=== PATIENT | male | born 1940 | race Caucasian/White ===

== ENCOUNTER 2023-05-12 09:48 | Outpatient (REF) | payer MEDICARE, SELFPAY | END 2023-05-12 09:49 | disposition home or self-care (01) | LOC: HO.HKASLDS 09:48 | PROVIDERS: Visit Provider Internal Medicine Nephrology | DX: Z13.89 Encounter for screening for other disorder (principal) ==

== ENCOUNTER 2023-05-14 14:38 | Outpatient (REF) | payer MEDICARE, SELFPAY ==
[2023-05-14 16:36] LABS: Anion Gap 15 (12-20); Blood Urea Nitrogen 40 mg/dL (9-16); Calcium 9.6 mg/dL (8.4-10.2); Carbon Dioxide 22 mmol/L (22-29); Chloride 107 mmol/L (96-108); Estimated Glomerular Filt Rate 37; Potassium 4.6 mmol/L (3.3-5.1); Sodium 139 mmol/L (135-145)
== END 2023-05-14 14:39 | disposition home or self-care (01) ==
LOC: HO.HKASLDS 14:38
PROVIDERS: Visit Provider Internal Medicine Nephrology
DX: I12.9 Hypertensive chronic kidney disease with stage 1 through stage 4 chronic kidney disease, or unspecified chronic kidney disease (principal); N18.4 Chronic kidney disease, stage 4 (severe)
CPT/HCPCS: 36415; 80051; 82310; 82565; 84520

== ENCOUNTER 2023-05-18 10:45 | Outpatient (AMB) | payer MEDICARE, SELFPAY ==
--- NOTE | 2023-05-18 10:40 | HO.NEPHOV_ITS ---
HPI HPI Comments History of Present Illness Details I had the pleasure seeing Mr. Marcano in follow-up of his chronic kidney disease and hypertension. He follows up with Urology annually due to his history of right renal cell carcinoma and status post nephrectomy in 2014. He also has prostate cancer and is following with Oncologist. His serum creatinine had been stable around 1.8 to 2. He denies any chest pain, shortness of breath, nausea vomiting, diarrhea, pedal edema or any urinary symptoms. He has no orthostasis. He is compliant with adequate fluid intake and avoids nonsteroidal anti-inflammatory medications. He had CVA in December. His swallow is better. He has lost a lot of weight following CVA. [facility] Medical History (Updated 05/18/23 @ 10:43 by Rivera Murray MD) Prostate cancer History of renal cell cancer Acquired solitary kidney Essential (primary) hypertension CKD (chronic kidney disease) stage 3, GFR 30-59 ml/min Surgical History (Updated 05/18/23 @ 10:55 by Shae Douglas MA) History of nephrectomy Social History (Updated 05/18/23 @ 10:56 by Shae Douglas MA) Alcohol intake: never Patient Tobacco Use Status: Never used Tobacco Use of substances other than those prescribed or required for medical reasons: No Vital Signs 05/18/23 10:52 Height 5 ft 11 in Weight 212 lb BMI 29.6 BP 122/62 Blood Pressure Location Rt brachial Position Sitting Pulse 91 Pulse Source Pulse Oximeter Pulse Oximetry (%) 97 Oxygen Delivery Method Room Air Physical Exam Vital Signs: Last Vital Signs Pulse 91 05/18/23 10:52 BP 122/62 05/18/23 10:52 Pulse Ox 97 05/18/23 10:52 Oxygen Delivery Method Room Air 05/18/23 10:52 BMI result Body Mass Index 29.6 Const General: comfortable and no acute distress Orientation/consciousness: patient oriented x3 HEENT Head: Yes normocephalic Mouth: Normal oral and palatal mucosa present Eyes EOM: EOMs intact bilaterally Neck Neck: Yes supple Resp Auscultation: clear to auscultation bilaterally Cardio Jugular venous distension: no JVD Rate: regular rate GI Palpation (GI): Soft to palpation Auscultation: normal bowel sounds General: Yes no CVA tenderness Back/Spine/Pelvis Back: no CVA tenderness Skin General skin exam: no rashes or lesions noted Neuro General: patient oriented x3 and moves all extremities Extrem General: Yes no pedal edema Assessment & Plan Assessment & Plan (1) CKD (chronic kidney disease) stage 3, GFR 30-59 ml/min: Code(s): N18.30 - Chronic kidney disease, stage 3 unspecified Qualifiers: Chronic kidney disease stage 3 subtype: stage 3a (GFR 45-59) Qualified Code(s): N18.31 - Chronic kidney disease, stage 3a (2) Essential (primary) hypertension: Code(s): I10 - Essential (primary) hypertension (3) Acquired solitary kidney: Code(s): Z90.5 - Acquired absence of kidney (4) Prostate cancer: Code(s): C61 - Malignant neoplasm of prostate (5) History of renal cell cancer: Code(s): Z85.528 - Personal history of other malignant neoplasm of kidney Plan Franky had stable renal function for long time. He follows up with Urology very closely. He should continue his current dose of allopurinol. He has not had any gout exacerbations. He should avoid nonsteroidal inflammatory medications and cut back on sodium in the diet. His blood pressure has been at goal at home. I encouraged to continue to monitoring blood pressure at home. He needs to lose some more weight. He should maintain good hydration and avoid nonsteroidal anti-inflammatories. I did not make any medication changes today. Follow-up blood work ordered. Follow-up appointment given. Answered all questions. Orders: Orders Creatinine Today C61 - Malignant neoplasm of prostate, I10 - Essential (primary) hypertension, N18.30 - Chronic kidney disease, stage 3 unspecified, Z85.528 - Personal history of other malignant neoplasm of kidney, Z90.5 - Acquired absence of kidney Blood Urea Nitrogen Today C61 - Malignant neoplasm of prostate, I10 - Essential (primary) hypertension, N18.30 - Chronic kidney disease, stage 3 unspecified, Z85.528 - Personal history of other malignant neoplasm of kidney, Z90.5 - Acquired absence of kidney Electrolytes Today C61 - Malignant neoplasm of prostate, I10 - Essential (primary) hypertension, N18.30 - Chronic kidney disease, stage 3 unspecified, Z85.528 - Personal history of other malignant neoplasm of kidney, Z90.5 - Acquired absence of kidney Calcium Today C61 - Malignant neoplasm of prostate, I10 - Essential (primary) hypertension, N18.30 - Chronic kidney disease, stage 3 unspecified, Z85.528 - Personal history of other malignant neoplasm of kidney, Z90.5 - Acquired absence of kidney Coding Level of Care Code Est Pt Level 3 (98004) Diagnoses Stage 3a chronic kidney disease N18.31 Chronic kidney disease stage 3 subtype: stage 3a (GFR 45-59) Essential (primary) hypertension I10 Acquired solitary kidney Z90.5 Prostate cancer C61 History of renal cell cancer Z85.528 Results Reviewed Nephrology Results: Sodium 139 mmol/L (135-145) 05/14/23 Potassium 4.6 mmol/L (3.3-5.1) 05/14/23 Chloride 107 mmol/L (96-108) 05/14/23 Carbon Dioxide 22 mmol/L (22-29) 05/14/23 BUN 40 mg/dL (9-16) H 05/14/23 Creatinine 1.75 mg/dL (0.5-1.4) H 05/14/23 Calcium 9.6 mg/dL (8.4-10.2) 05/14/23
[2023-05-18 10:52] VITALS: BP 122/62; PULSE 91; O2SAT 97; BMI 29.6
== END 2023-05-18 11:10 | disposition home or self-care (01) ==
PROVIDERS: PCP Physician Assistant; Visit Provider Internal Medicine Nephrology
DX: N18.31 Chronic kidney disease, stage 3a (principal); I10 Essential (primary) hypertension; Z90.5 Acquired absence of kidney; C61 Malignant neoplasm of prostate; Z85.528 Personal history of other malignant neoplasm of kidney
CPT/HCPCS: 99213

== ENCOUNTER → 2023-05-18 10:45 | Outpatient (BNVA) | payer MEDICARE, SELFPAY | PROVIDERS: PCP Physician Assistant; Visit Provider Internal Medicine Nephrology | DX: I12.9 Hypertensive chronic kidney disease with stage 1 through stage 4 chronic kidney disease, or unspecified chronic kidney disease (principal); N18.31 Chronic kidney disease, stage 3a; C61 Malignant neoplasm of prostate; Z90.5 Acquired absence of kidney; Z85.528 Personal history of other malignant neoplasm of kidney | CPT/HCPCS: 99212 ==

== ENCOUNTER → 2023-06-15 09:37 | Outpatient (REF) | payer MEDICARE, SELFPAY ==
--- NOTE | 2023-06-15 09:40 | HM_ITS ---
Conclusion: 1. Patient was monitored for total period of 7 days 2. Baseline was normal sinus rhythm with average heart of 63 beats per minute 3. Five pauses of greater than 2.5 seconds noted, all of them happening during sleep hours 4. Frequent PACs noted with total burden of 5.5% 5. No patient reported events MTDD
== END ==
LOC: HO.CARD 09:37
PROVIDERS: PCP Internal Medicine; Visit Provider Psychiatry & Neurology Neurology
DX: I63.9 Cerebral infarction, unspecified (principal); I49.1 Atrial premature depolarization
CPT/HCPCS: 93242

== ENCOUNTER → 2023-06-15 09:40 | Outpatient (BNV) | payer MEDICARE, SELFPAY | PROVIDERS: PCP Internal Medicine; Visit Provider Internal Medicine Cardiovascular Disease | DX: I49.1 Atrial premature depolarization (principal) | CPT/HCPCS: 93244 ==

== ENCOUNTER 2023-09-23 10:07 | Outpatient (REF) | payer MEDICARE, SELFPAY ==
[2023-09-23 17:25] LABS: Creatinine Urine 177.98 mg/dL; Protein/Creatinine Ratio, Ur 0.31 (<0.2); Total Protein Urine Random 55 mg/dL (<12)
[2023-09-23 17:41] LABS: Anion Gap 9 (12-20); Blood Urea Nitrogen 34 mg/dL (9-16); Calcium 9.3 mg/dL (8.4-10.2); Carbon Dioxide 27 mmol/L (22-29); Chloride 108 mmol/L (96-108); Estimated Glomerular Filt Rate 38; Potassium 4.2 mmol/L (3.3-5.1); Sodium 140 mmol/L (135-145)
== END 2023-09-23 10:08 | disposition home or self-care (01) ==
LOC: HO.HKASLDS 10:07
PROVIDERS: Visit Provider Internal Medicine Nephrology
DX: I12.9 Hypertensive chronic kidney disease with stage 1 through stage 4 chronic kidney disease, or unspecified chronic kidney disease (principal); N18.30 Chronic kidney disease, stage 3 unspecified; Z85.528 Personal history of other malignant neoplasm of kidney; C61 Malignant neoplasm of prostate; Z90.5 Acquired absence of kidney
CPT/HCPCS: 36415; 80051; 82310; 82565; 82570; 84156; 84520

== ENCOUNTER 2023-09-29 10:37 | Outpatient (AMB) | payer MEDICARE, SELFPAY ==
--- NOTE | 2023-09-29 10:59 | HO.NEPHOV ---
Vital Signs 09/29/23 11:00 Height 5 ft 11 in Weight 213 lb BMI 29.7 BP 112/60 Blood Pressure Location Lt brachial Position Sitting Pulse 75 Pulse Source Pulse Oximeter Pulse Oximetry (%) 96 Oxygen Delivery Method Room Air Intake Visit Reasons: 4M follow up/ Confirmed Obiee Lead Developer Required: No Accompanied by: Self / Same As Patient Allergies No Known Allergies Allergy (Verified 09/29/23 11:02) HPI Comments Details: I had the pleasure seeing Mr. Marcano in follow-up of his chronic kidney disease and hypertension. He follows up with Urology annually due to his history of right renal cell carcinoma and status post nephrectomy in 2014. He also has prostate cancer and is following with Oncologist. His serum creatinine had been stable around 1.8 to 2. He denies any chest pain, shortness of breath, nausea vomiting, diarrhea, pedal edema or any urinary symptoms. He has no orthostasis. He is compliant with adequate fluid intake and avoids nonsteroidal anti-inflammatory medications. He had CVA in December 2022. He has lost a lot of weight following CVA but stable now. [facility] Medical History (Updated 09/29/23 @ 11:18 by Rivera Murray MD) Prostate cancer History of renal cell cancer Acquired solitary kidney Essential (primary) hypertension CKD (chronic kidney disease) stage 3, GFR 30-59 ml/min Surgical History History of nephrectomy Social History Alcohol intake: never Patient Tobacco Use Status: Never used Tobacco Physical Exam Vital Signs: Last Vital Signs Pulse 75 09/29/23 11:00 BP 112/60 09/29/23 11:00 Pulse Ox 96 09/29/23 11:00 Oxygen Delivery Method Room Air 09/29/23 11:00 BMI result Body Mass Index 29.7 Const General: comfortable and no acute distress Orientation/consciousness: patient oriented x3 HEENT Head: Yes normocephalic Mouth: Normal oral and palatal mucosa present Eyes EOM: EOMs intact bilaterally Neck Neck: Yes supple Resp Auscultation: clear to auscultation bilaterally Cardio Jugular venous distension: no JVD Rate: regular rate GI Palpation (GI): Soft to palpation Auscultation: normal bowel sounds General: Yes no CVA tenderness Back/Spine/Pelvis Back: no CVA tenderness Skin General skin exam: no rashes or lesions noted Neuro General: patient oriented x3 and moves all extremities Extrem General: Yes no pedal edema Results Reviewed Nephrology Results: Sodium 140 mmol/L (135-145) 24/24 Potassium 4.2 mmol/L (3.3-5.1) 2424 Chloride 108 mmol/L (96-108) 09/22/24 Carbon Dioxide 27 mmol/L (22-29) 24 BUN 34 mg/dL (9-16) H 24 Creatinine 1.74 mg/dL (0.5-1.4) H 24 Calcium 9.3 mg/dL (8.4-10.2) 24 Urine Creatinine 177.98 mg/dL 24 Protein/Creatinin Ratio 0.31 (<0.2) H 24 Assessment & Plan Assessment & Plan (1) History of renal cell cancer: Code(s): Z85.528 - Personal history of other malignant neoplasm of kidney Category: Medical (2) Prostate cancer: Code(s): C61 - Malignant neoplasm of prostate Category: Medical (3) Essential (primary) hypertension: Code(s): I10 - Essential (primary) hypertension Category: Medical (4) Acquired solitary kidney: Code(s): Z90.5 - Acquired absence of kidney Category: Medical (5) CKD (chronic kidney disease) stage 3, GFR 30-59 ml/min: Code(s): N18.30 - Chronic kidney disease, stage 3 unspecified Category: Medical Qualifiers: Chronic kidney disease stage 3 subtype: stage 3a (GFR 45-59) Qualified Code(s): N18.31 - Chronic kidney disease, stage 3a (6) Hyperuricemia: Code(s): E79.0 - Hyperuricemia without signs of inflammatory arthritis and tophaceous disease Category: Medical Plan . Franky had stable renal function for long time. He follows up with Urology very closely. He should continue his current dose of allopurinol. He has not had any gout exacerbations. He should avoid nonsteroidal inflammatory medications and cut back on sodium in the diet. His blood pressure has been at goal at home. I encouraged to continue to monitoring blood pressure at home. He needs to lose some more weight. He should maintain good hydration and avoid nonsteroidal anti-inflammatories. I did not make any medication changes today. Follow-up blood work ordered. Follow-up appointment given. Answered all questions. Orders: Orders Blood Urea Nitrogen Today C61 - Malignant neoplasm of prostate, E79.0 - Hyperuricemia without signs of inflammatory arthritis and tophaceous disease, I10 - Essential (primary) hypertension, N18.31 - Chronic kidney disease, stage 3a, Z85.528 - Personal history of other malignant neoplasm of kidney, Z90.5 - Acquired absence of kidney Uric Acid Today C61 - Malignant neoplasm of prostate, E79.0 - Hyperuricemia without signs of inflammatory arthritis and tophaceous disease, I10 - Essential (primary) hypertension, N18.31 - Chronic kidney disease, stage 3a, Z85.528 - Personal history of other malignant neoplasm of kidney, Z90.5 - Acquired absence of kidney Electrolytes Today C61 - Malignant neoplasm of prostate, E79.0 - Hyperuricemia without signs of inflammatory arthritis and tophaceous disease, I10 - Essential (primary) hypertension, N18.31 - Chronic kidney disease, stage 3a, Z85.528 - Personal history of other malignant neoplasm of kidney, Z90.5 - Acquired absence of kidney Calcium Today C61 - Malignant neoplasm of prostate, E79.0 - Hyperuricemia without signs of inflammatory arthritis and tophaceous disease, I10 - Essential (primary) hypertension, N18.31 - Chronic kidney disease, stage 3a, Z85.528 - Personal history of other malignant neoplasm of kidney, Z90.5 - Acquired absence of kidney Creatinine Today C61 - Malignant neoplasm of prostate, E79.0 - Hyperuricemia without signs of inflammatory arthritis and tophaceous disease, I10 - Essential (primary) hypertension, N18.31 - Chronic kidney disease, stage 3a, Z85.528 - Personal history of other malignant neoplasm of kidney, Z90.5 - Acquired absence of kidney Coding Level of Care Code Est Pt Level 4 (15254) Diagnoses History of renal cell cancer Z85.528 Prostate cancer C61 Essential (primary) hypertension I10 Acquired solitary kidney Z90.5 Stage 3a chronic kidney disease N18.31 Chronic kidney disease stage 3 subtype: stage 3a (GFR 45-59) Hyperuricemia E79.0
[2023-09-29 11:00] VITALS: BP 112/60; PULSE 75; O2SAT 96; BMI 29.7
== END 2023-09-29 11:28 | disposition home or self-care (01) ==
PROVIDERS: PCP Internal Medicine; Visit Provider Internal Medicine Nephrology
DX: Z85.528 Personal history of other malignant neoplasm of kidney (principal); C61 Malignant neoplasm of prostate; I10 Essential (primary) hypertension; Z90.5 Acquired absence of kidney; N18.31 Chronic kidney disease, stage 3a; E79.0 Hyperuricemia without signs of inflammatory arthritis and tophaceous disease
CPT/HCPCS: 99214

== ENCOUNTER → 2023-09-29 10:37 | Outpatient (BNVA) | payer MEDICARE, SELFPAY | PROVIDERS: PCP Internal Medicine; Visit Provider Internal Medicine Nephrology | DX: I12.9 Hypertensive chronic kidney disease with stage 1 through stage 4 chronic kidney disease, or unspecified chronic kidney disease (principal); N18.31 Chronic kidney disease, stage 3a; C61 Malignant neoplasm of prostate; E79.0 Hyperuricemia without signs of inflammatory arthritis and tophaceous disease; Z90.5 Acquired absence of kidney; Z85.528 Personal history of other malignant neoplasm of kidney | CPT/HCPCS: 99212 ==

== ENCOUNTER 2024-01-26 13:39 | Outpatient (REF) | payer MEDICARE, SELFPAY ==
[2024-01-26 18:20] LABS: Anion Gap 16 (12-20); Blood Urea Nitrogen 29 mg/dL (9-16); Calcium 9.8 mg/dL (8.4-10.2); Carbon Dioxide 22 mmol/L (22-29); Chloride 107 mmol/L (96-108); Estimated Glomerular Filt Rate 38; Sodium 140 mmol/L (135-145); Uric Acid 4.8 mg/dL (3.4-7.0)
== END 2024-01-26 13:40 | disposition home or self-care (01) ==
LOC: HO.HKASLDS 13:39
PROVIDERS: Visit Provider Internal Medicine Nephrology
DX: E79.0 Hyperuricemia without signs of inflammatory arthritis and tophaceous disease (principal); C61 Malignant neoplasm of prostate; I10 Essential (primary) hypertension; Z90.5 Acquired absence of kidney; N18.31 Chronic kidney disease, stage 3a; Z85.528 Personal history of other malignant neoplasm of kidney
CPT/HCPCS: 36415; 80051; 82310; 82565; 84520; 84550

== ENCOUNTER 2024-02-04 11:50 | Outpatient (AMB) | payer MEDICARE, SELFPAY ==
[2024-02-04 12:12] VITALS: BP 80/44; PULSE 73; O2SAT 98; BMI 27.2
--- NOTE | 2024-02-04 12:12 | HO.NEPHOV ---
Vital Signs 02/04/24 12:12 Height 5 ft 11 in Weight 195 lb 2 oz BMI 27.2 BP 80/44 L Blood Pressure Location Lt brachial Position Sitting Pulse 73 Pulse Source Pulse Oximeter Pulse Oximetry (%) 98 Oxygen Delivery Method Room Air Intake Visit Reasons: 4M follow up/ Confirmed Merchandise Complaint Adjuster Required: No Accompanied by: Self / Same As Patient Allergies No Known Allergies Allergy (Verified 02/04/24 12:14) HPI Comments Details: I had the pleasure seeing Mr. Marcano in follow-up of his chronic kidney disease and hypertension. He follows up with Urology annually due to his history of right renal cell carcinoma and status post nephrectomy in 2014. He also has prostate cancer and is following with Oncologist. His serum creatinine had been stable around 1.8 to 2. He denies any chest pain, shortness of breath, nausea vomiting, diarrhea, pedal edema or any urinary symptoms. He has no orthostasis. He is compliant with adequate fluid intake and avoids nonsteroidal anti-inflammatory medications. He had CVA in December 2022. He has lost a lot of weight following CVA but stable now. He had COVID and AFib recently. He is on anticoagulation. His BP has been low normal and has been having intermittent orthostatic symptoms. [facility] Medical History (Updated 09/29/23 @ 11:18 by Rivera Murray MD) Prostate cancer History of renal cell cancer Acquired solitary kidney Essential (primary) hypertension CKD (chronic kidney disease) stage 3, GFR 30-59 ml/min Surgical History History of nephrectomy Social History Alcohol intake: never Patient Tobacco Use Status: Never used Tobacco Review of Systems Const All systems reviewed & are unremarkable except as noted in HPI and below Physical Exam Vital Signs: Last Vital Signs Pulse 73 02/04/24 12:12 BP 80/44 L 02/04/24 12:12 Pulse Ox 98 02/04/24 12:12 Oxygen Delivery Method Room Air 02/04/24 12:12 BMI result Body Mass Index 27.2 Const General: comfortable and no acute distress Orientation/consciousness: patient oriented x3 HEENT Head: Yes normocephalic Mouth: Normal oral and palatal mucosa present Eyes EOM: EOMs intact bilaterally Neck Neck: Yes supple Resp Auscultation: clear to auscultation bilaterally Cardio Jugular venous distension: no JVD Rate: regular rate GI Palpation (GI): Soft to palpation Auscultation: normal bowel sounds General: Yes no CVA tenderness Back/Spine/Pelvis Back: no CVA tenderness Skin General skin exam: no rashes or lesions noted Neuro General: patient oriented x3 and moves all extremities Extrem General: Yes no pedal edema Results Reviewed Nephrology Results: Sodium 140 mmol/L (135-145) 01/26/24 Potassium 5.0 mmol/L (3.3-5.1) 01/26/24 Chloride 107 mmol/L (96-108) 01/26/24 Carbon Dioxide 22 mmol/L (22-29) 01/26/24 BUN 29 mg/dL (9-16) H 01/26/24 Creatinine 1.72 mg/dL (0.5-1.4) H 01/26/24 Calcium 9.8 mg/dL (8.4-10.2) 01/26/24 Urine Creatinine 177.98 mg/dL 09/23/23 Protein/Creatinin Ratio 0.31 (<0.2) H 09/23/23 Assessment & Plan Assessment & Plan (1) CKD (chronic kidney disease) stage 3, GFR 30-59 ml/min: Code(s): N18.30 - Chronic kidney disease, stage 3 unspecified Category: Medical Qualifiers: Chronic kidney disease stage 3 subtype: stage 3a (GFR 45-59) Qualified Code(s): N18.31 - Chronic kidney disease, stage 3a (2) Acquired solitary kidney: Code(s): Z90.5 - Acquired absence of kidney Category: Medical (3) Essential (primary) hypertension: Code(s): I10 - Essential (primary) hypertension Category: Medical Plan Franky had stable renal function for long time. He follows up with Urology very closely. He should continue his current dose of allopurinol. He has not had any gout exacerbations. He should avoid nonsteroidal inflammatory medications and cut back on sodium in the diet. His blood pressure has been at goal at home. I encouraged to continue to monitoring blood pressure at home. He needs to lose some more weight. He should maintain good hydration and avoid nonsteroidal anti-inflammatories. I reduced his Amlodipine to 5 mg daily given orthostatic symptoms. I did not make any other medication changes today. Follow-up blood work ordered. Follow-up appointment given. Answered all questions Coding Level of Care Code Est Pt Level 4 (19022) Diagnoses Stage 3a chronic kidney disease N18.31 Chronic kidney disease stage 3 subtype: stage 3a (GFR 45-59) Acquired solitary kidney Z90.5 Essential (primary) hypertension I10
== END 2024-02-04 12:32 | disposition home or self-care (01) ==
PROVIDERS: PCP Internal Medicine; Visit Provider Internal Medicine Nephrology
DX: N18.31 Chronic kidney disease, stage 3a (principal); Z90.5 Acquired absence of kidney; I10 Essential (primary) hypertension
CPT/HCPCS: 99214

== ENCOUNTER → 2024-02-04 11:50 | Outpatient (BNVA) | payer MEDICARE, SELFPAY | PROVIDERS: PCP Internal Medicine; Visit Provider Internal Medicine Nephrology | DX: I12.9 Hypertensive chronic kidney disease with stage 1 through stage 4 chronic kidney disease, or unspecified chronic kidney disease (principal); N18.31 Chronic kidney disease, stage 3a; C61 Malignant neoplasm of prostate; I48.91 Unspecified atrial fibrillation; Z86.73 Personal history of transient ischemic attack (TIA), and cerebral infarction without residual deficits; Z79.01 Long term (current) use of anticoagulants; Z90.5 Acquired absence of kidney; Z85.528 Personal history of other malignant neoplasm of kidney | CPT/HCPCS: 99212 ==

== ENCOUNTER 2024-04-07 11:20 | Outpatient (AMB) | payer MEDICARE, SELFPAY ==
--- NOTE | 2024-04-07 11:40 | HO.NEPHOV ---
Vital Signs 04/07/24 11:42 Height 5 ft 11 in Weight 202 lb 8 oz BMI 28.2 BP 120/60 Blood Pressure Location Lt brachial Position Sitting Pulse 65 Pulse Source Pulse Oximeter Pulse Oximetry (%) 98 Oxygen Delivery Method Room Air Intake Visit Reasons: 2 mon follow up-Conf Accompanied by: Self / Same As Patient Allergies No Known Allergies Allergy (Verified 04/07/24 11:41) HPI Comments Details: Mr. Marcano was seen in follow-up of his chronic kidney disease and hypertension. He follows up with Urology annually due to his history of right renal cell carcinoma and status post nephrectomy in 2014. He also has prostate cancer and is following with Oncologist. His serum creatinine had been stable around 1.8 to 2. He denies any chest pain, shortness of breath, nausea vomiting, diarrhea, pedal edema or any urinary symptoms. He has no orthostasis. He is compliant with adequate fluid intake and avoids nonsteroidal anti-inflammatory medications. 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 His BP is at goal [facility] Medical History (Updated 09/29/23 @ 11:18 by Rivera Murray MD) Prostate cancer History of renal cell cancer Acquired solitary kidney Essential (primary) hypertension CKD (chronic kidney disease) stage 3, GFR 30-59 ml/min Surgical History History of nephrectomy Social History Alcohol intake: never Patient Tobacco Use Status: Never used Tobacco Review of Systems Const All systems reviewed & are unremarkable except as noted in HPI and below Physical Exam Vital Signs: Last Vital Signs Pulse 65 04/07/24 11:42 BP 120/60 04/07/24 11:42 Pulse Ox 98 04/07/24 11:42 Oxygen Delivery Method Room Air 04/07/24 11:42 BMI result Body Mass Index 28.2 Const General: comfortable and no acute distress Orientation/consciousness: patient oriented x3 HEENT Head: Yes normocephalic Mouth: Normal oral and palatal mucosa present Eyes EOM: EOMs intact bilaterally Neck Neck: Yes supple Resp Auscultation: clear to auscultation bilaterally Cardio Jugular venous distension: no JVD Rate: regular rate GI Palpation (GI): Soft to palpation Auscultation: normal bowel sounds General: Yes no CVA tenderness Back/Spine/Pelvis Back: no CVA tenderness Skin General skin exam: no rashes or lesions noted Neuro General: patient oriented x3 and moves all extremities Extrem General: Yes no pedal edema Results Reviewed Nephrology Results: Sodium 140 mmol/L (135-145) 01/26/24 Potassium 5.0 mmol/L (3.3-5.1) 01/26/24 Chloride 107 mmol/L (96-108) 01/26/24 Carbon Dioxide 22 mmol/L (22-29) 01/26/24 BUN 29 mg/dL (9-16) H 01/26/24 Creatinine 1.72 mg/dL (0.5-1.4) H 01/26/24 Calcium 9.8 mg/dL (8.4-10.2) 01/26/24 Urine Creatinine 177.98 mg/dL 09/23/23 Protein/Creatinin Ratio 0.31 (<0.2) H 09/23/23 Assessment & Plan Assessment & Plan (1) Hyperuricemia: Code(s): E79.0 - Hyperuricemia without signs of inflammatory arthritis and tophaceous disease Category: Medical (2) Essential (primary) hypertension: Code(s): I10 - Essential (primary) hypertension Category: Medical (3) Acquired solitary kidney: Code(s): Z90.5 - Acquired absence of kidney Category: Medical (4) CKD (chronic kidney disease) stage 3, GFR 30-59 ml/min: Code(s): N18.30 - Chronic kidney disease, stage 3 unspecified Category: Medical Qualifiers: Chronic kidney disease stage 3 subtype: stage 3a (GFR 45-59) Qualified Code(s): N18.31 - Chronic kidney disease, stage 3a Plan Franky had stable renal function for long time. He follows up with Urology very closely. He should continue his current dose of allopurinol. He has not had any gout exacerbations on Allopurinol. He should avoid nonsteroidal inflammatory medications and cut back on sodium in the diet. His blood pressure has been at goal at home. I encouraged to continue to monitoring blood pressure at home. He needs to lose some more weight. He should maintain good hydration and avoid nonsteroidal anti-inflammatories.I did not make any other medication changes today. Follow-up blood work ordered. Answered all questions Orders: Orders Creatinine 4 Months E79.0 - Hyperuricemia without signs of inflammatory arthritis and tophaceous disease, I10 - Essential (primary) hypertension, N18.31 - Chronic kidney disease, stage 3a, Z90.5 - Acquired absence of kidney Electrolytes 4 Months E79.0 - Hyperuricemia without signs of inflammatory arthritis and tophaceous disease, I10 - Essential (primary) hypertension, N18.31 - Chronic kidney disease, stage 3a, Z90.5 - Acquired absence of kidney Blood Urea Nitrogen 4 Months E79.0 - Hyperuricemia without signs of inflammatory arthritis and tophaceous disease, I10 - Essential (primary) hypertension, N18.31 - Chronic kidney disease, stage 3a, Z90.5 - Acquired absence of kidney Coding Level of Care Code Est Pt Level 4 (36768) Diagnoses Hyperuricemia E79.0 Essential (primary) hypertension I10 Acquired solitary kidney Z90.5 Stage 3a chronic kidney disease N18.31 Chronic kidney disease stage 3 subtype: stage 3a (GFR 45-59)
[2024-04-07 11:42] VITALS: BP 120/60; PULSE 65; O2SAT 98; BMI 28.2
== END 2024-04-07 12:07 | disposition home or self-care (01) ==
LOC: HO.HKAS 11:21
PROVIDERS: PCP Internal Medicine; Visit Provider Internal Medicine Nephrology
DX: E79.0 Hyperuricemia without signs of inflammatory arthritis and tophaceous disease (principal); I10 Essential (primary) hypertension; Z90.5 Acquired absence of kidney; N18.31 Chronic kidney disease, stage 3a
CPT/HCPCS: 99214

== ENCOUNTER → 2024-04-07 11:20 | Outpatient (BNVA) | payer MEDICARE, SELFPAY | PROVIDERS: PCP Internal Medicine; Visit Provider Internal Medicine Nephrology | DX: I12.9 Hypertensive chronic kidney disease with stage 1 through stage 4 chronic kidney disease, or unspecified chronic kidney disease (principal); N18.31 Chronic kidney disease, stage 3a; E79.0 Hyperuricemia without signs of inflammatory arthritis and tophaceous disease; Z90.5 Acquired absence of kidney | CPT/HCPCS: 99212 ==

== ENCOUNTER 2024-07-26 09:58 | Outpatient (REF) | payer MEDICARE, SELFPAY ==
--- OUTSIDE RECORDS SUMMARY | 2024-07-26 11:33 | XMS_ITS | Clinical Summary ---
Author Organization [facility] Address [address] [facility] [address] [place] [address] Phone Care Team Providers Care It Systems Manager Name Role Phone Vahid Mcclellan MD Primary Care Provider Allergies No known active allergies Medications albuterol HFA (PROVENTIL HFA;VENTOLIN HFA) 108 (90 Base) MCG/ACT inhaler 1 Active metoprolol succinate XL (TOPROL-XL) 100 MG 24 hr tablet Take 1 tablet by mouth 1 (one) time each day 1 Active NIFEdipine CC (ADALAT CC) 30 MG 24 hr tablet Take 1 tablet by mouth 1 (one) time each day 8 Active pravastatin (PRAVACHOL) 40 MG tablet Take 1 tablet by mouth 1 (one) time each day Active tiotropium (Spiriva HandiHaler) 18 MCG per inhalation capsule Take 1 capsule by nebulization 1 (one) time each day Active tamsulosin (FLOMAX) 0.4 MG 24 hr capsule Take 1 capsule by mouth 1 (one) time each day 1 Active sertraline (ZOLOFT) 25 MG tablet Take 50 mg by mouth 1 (one) time each day 3 Active budesonide-form oterol (SYMBICORT) 160-4.5 MCG/ACT inhaler INHALE 2 PUFFS INTO THE LUNGS 2 TIMES DAILY FOR 30 DAYS. 3 Active Active Problems Problem Noted Date Diagnosed Date Hypertension 02/12/2021 Chronic kidney disease stage 4 08/14/2020 Hypertensive renal disease 08/14/2020 History of malignant neoplasm of kidney 08/15/19 21 Polyp of colon 04/19/2018 Chronic obstructive pulmonary disease 01/07/2018 Cramp in lower limb 01/07/2018 Hyperlipidemia 01/07/2018 Gout 10/01/2017 Nodule of lung 10/01/2017 Overview (04/23/2022): Comments: CT 10/28/17 essentially stable subcentimeter pulmonary nodules when compared to 2015 & 2016 Tubular adenoma 12/03/2016 Diverticulosis of colon 04/30/2016 H/O: malignant neoplasm 04/30/2016 Overview (04/23/2022): Comments: S/p right radical nephrectomy 05/30/15. Pathology negative margins f/u nephro Dr. Bailey Immunizations Name Administration Dates Next Due Influenza Split High Dose Preservative Free IM 1 Influenza, MDCK, PF, Quadrivalent 05/02/2019 Pneumococcal Conjugate 13-Valent 04/01/2016,03/02 Pneumococcal Polysaccharide 07/08/2011 Family History Medical History Relation Comments Hypertension Mother Diabetes Sibling 1 Kidney disease Sibling 2 Relation Status Comments Father Mother Sibling 1 Sibling 2 Social History Tobacco Use Types Packs/Day Years Used Date Smoking Tobacco: Never Smokeless Tobacco: Never Tobacco Cessation:Counseling Given: Not Answered Alcohol Use Standard Drinks/Week Comments No 0 (1 standard drink = 0.6 oz pur e alcohol) Sex and Gender Information Value Date Recorded Sex Assigned at Not on file Legal Sex Male 5:05 PM EST Gender Identity Not on file Sexual Orientation Not on file Last Filed Vital Signs Vital Sign Reading Time Taken Comments Blood Pressure 140/78 10/28/2022 2:06 PM EDT Pulse 68 10/28/2022 2:06 PM EDT Temperature - - Respiratory Rate - - Oxygen Saturation 94% 10/29/2021 1:41 PM EDT Inhaled Oxygen Concentration - - Weight 103 kg (227 lb 6.4 oz) 10/28/2022 2:06 PM EDT Height 180.3 cm (5' 11 ) 08/23/2019 12:00 PM EDT Body Mass Index 31.72 08/23/2019 12:00 PM EDT Plan of Treatment Health Maintenance Due Date Last Done Comments Influenza Vaccine (#1) 2024 9, 03/15/2018 Pneumococcal Vaccine: 65+ Years Completed 04/01/2016, 03/27/2015, 07/08/2011 Hepatitis B Vaccine Aged Out No longe r eligible based on patient's age to complete this topic Insurance [employer] Care Teams It Systems Manager Relationship Specialty Start Date End Date Vahid Mcclellan MD [address] [place] [id number] PCP - General 06/11/20
--- OUTSIDE RECORDS SUMMARY | 2024-07-26 11:33 | XMS_ITS | Encounter Summary ---
Author Organization [facility] [place] [address] Care Team Providers Care Director Of Business Applications Name Role Phone Vahid Mcclellan MD Primary Care Provider [phone] Reason for Visit * Auth/Cert (Routine) Specialty Diagnoses / Procedures Referred By Contac t Referred To Contact Diagnoses SOB (shortness of breath) VT (ventricular tachycardia) ([facility]/HCC) SSS (sick sinus syndrome) ([facility]) SSS Procedures HI INSERTION NEW/REPLACEMENT PPM W/TRANSVENOUS ELECTRODE ATRIAL&VENTRICULAR Insert PPM dual chamber Howard Saavedra MD [address] [address] Phone: tel: fax: [facility] Cardiac Catalogue Librarian [address] [place] [address] Phone: tel: Referral ID Status Reason Start Date Expiration Date Visits Re quested Visits Authorized [id number] 1 1 Encounter Details Date Type Department Care Team (Late st Contact Info) Description 07/08/2024 11:00 AM EST - 07/08/2024 12:00 PM EST Surgery [facility] Cardiac Catalogue Librarian [address] [place] [address] Howard Saavedra MD [address] [address] Insert PPM dual chamber [82301 (CPT??)] Surgery Details Date/Time Status Location OR Service Patient Class Case Class Case Type Trauma Case? 07/08/2024 11:00 AM Posted [facility] Cardiac Catalogue Librarian Cath /EP Rm Cardiovascular (Cath/EP) Interventional Procedure F - Elective Panel 1 Procedure LRB Anes Op Region Wound Class Comments Insert PPM dual chamber N/A Moderate Sedation 1 Hour Case Surgeon Surgeon Role Service Panel Howard Saavedra MD Primary Cardiovascular (Cath/ EP) 1 documented in this encounter Social History Tobacco Use Types Packs/Day Years Used Date Smoking Tobacco: Former Cigarettes 2 37 0 10/26/1962 - 10/27/1999 Smokeless Tobacco: Never Alcohol Use Standard Drinks/Week Comments No 0 (1 standard drink = 0.6 oz pur e alcohol) Interpersonal Safety Answer Date Record ed Physical Abuse 05/08/2024 Verbal Abuse 05/08/2024 Sex and Gender Information Value Date Recorded Sex Assigned at Male 07/04/2024 3:07 PM EST Legal Sex Male 8:26 PM EST Gender Identity Male 07/04/2024 3:07 PM EST Sexual Orientation Straight 07/04/2024 3: 07 PM EST documented as of this encounter Last Filed Vital Signs Vital Sign Reading Time Taken Comments Blood Pressure 113/84 07/08/2024 9:51 AM EST Pulse 62 07/08/2024 9:51 AM EST Temperature 36.7 ??C (98 ??F) 07/08/2024 9:51 AM EST Respiratory Rate 16 07/08/2024 9:51 AM EST Oxygen Saturation 100% 07/08/2024 9:51 AM EST Inhaled Oxygen Concentration - - Weight 89.8 kg (198 lb) 07/08/2024 9:52 AM EST Height 180.3 cm (5' 11 ) 07/08/2024 9:52 AM EST Body Mass Index 27.62 07/08/2024 9:52 AM EST documented in this encounter Functional Status * Are you deaf or do you have serious difficulty hearing? Answer Date of Assessment Author No 05/08/2024 12:28 AM EST Argelia Rhodes RN * Are you blind or do you have serious difficulty seeing, even when wearing glasses? Answer Date of Assessment Author No 05/08/2024 12:28 AM Argelia Seay RN * Do you have serious difficulty walking or climbing stairs? Answer Date of Assessment Author No 05/08/2024 12:28 AM Argelia Seay RN * Do you have serious difficulty dressing or bathing? Answer Date of Assessment Author No 05/08/2024 12:28 AM Argelia Seay RN * Because of a physical, mental, or emotional condition, do you have serious difficulty doing errandsalone such as visiting the doctor? Answer Date of Assessment Author No 05/08/2024 12:28 AM Argelia Seay RN documented as of this encounter Mental Status * Because of a physical, mental, or emotional condition, do you have serious difficulty concentrating, remembering, or making decisions? (5 years old or older) Answer Entry Date Author No 05/08/2024 12:28 AM Argelia Seay RN documented in this encounter Discharge Instructions * Attachments The following attachments cannot be sent through Care Everywhere. * Biventricular Pacemaker: Post-op (Kuwaiti) * Sedation (Ku[place]i) documented in this encounter Medications at Time of Discharge albuterol HFA (Ventolin HFA) 90 mcg/actuation inhaler Inhale 2 Puffs into the lungs every 4 hours as needed. - Inhalation allopurinoL (ZYLOPRIM) 100 mg tablet Take 1 tablet (100 mg total) by mouth 1 (one) time each day. 04/26/2018 apixaban (Eliquis) 2.5 mg tablet Take 2.5 mg by mouth 2 times daily. 02/19/2024 aspirin 81 mg EC tablet TAKE 1 TABLET BY MOUTH EVERY DAY 90 tablet 1 06/22/2024 ipratropium-albu teroL (DUONEB) 0.5-2.5 mg/3 mL nebulizer solution Inhale 3 mL by mouth every 6 (six) hours if needed (dyspnea). 06/05/2022 tamsulosin (FLOMAX) 0.4 mg 24 hr capsule Take 2 capsules (0.8 mg total) by mouth at bedtime. 04/15/2022 albuterol HFA (Ventolin HFA) 90 mcg/actuation inhaler Inhale 2 puffs by mouth every 6 (six) hours if needed for wheezing. 6.7 g 11 06/17/2024 6 budesonide-formo teroL (SYMBICORT) 160-4.5 mcg/actuation inhaler Inhale 2 puffs by mouth 2 (two) times a day. 10/06/2022 leuprolide (LUPRON DEPOT) 22.5 mg syringe kitIndications:a dvanced prostatic carcinoma Inject into the shoulder, thigh, or buttocks 1 (one) time. Every six months per patient, unknown dosage verapamil SR (CALAN-SR) 240 mg CR tablet Take 1 tablet (240 mg total) by mouth at bedtime. Do not crush or chew. 90 each 3 07/08/2024 amLODIPine (NORVASC) 10 mg tablet TAKE 1 TABLET BY MOUTH EVERY DAY 90 tablet 1 06/22/2024 atorvastatin (LIPITOR) 40 mg tablet Take 1 tablet (40 mg total) by mouth 1 (one) time each day. 5 sertraline (ZOLOFT) 25 mg tablet Take 1 tablet (25 mg total) by mouth 1 (one) time each day. 03/03/2024 5 documented as of this encounter Ordered Prescriptions Prescription Sig Dispense Quantity Refills Last Filled Start Date End Date verapamil SR (CALAN-SR) 240 mg CR tablet Take 1 tablet (240 mg total) by mouth at bedtime. Do not crush or chew. 90 each 3 07/08/2024 documented in this encounter Discharge Disposition Disposition Code Departure Means Destination Comment s Home or Self Care documented in this encounter H&P Notes * Howard Saavedra MD - 07/08/2024 11:14 AM EST Assessment/Plan Active Problems: SOB (shortness of breath) VT (ventricular tachycardia) ([facility]/HCC) SSS (sick sinus syndrome) (CMS/HCC) Plan dual-chamber permanent pacemaker implantation. Risks and benefits reviewed. Procedural complications reviewed. Patient agrees to proceed. Subjective Franky Marcano is an 83 y.o. male. HPI: 83-year-old gentleman with a history of COPD, kidney cancer status post radiation, surgery and chemotherapy who has had paroxysmal atrial fibrillation with documented sinus node dysfunction and episodes of paroxysmal tachycardia with inability to achieve adequate rate control. Ambulatory monitoringshowed blocked PACs, 3 to 4-second sinus pauses also with first-degree block and second-degree typeI and type II AV block. Past Surgical History: Procedure Laterality Date EYE SURGERY Bilateral PROCEDURE: HISTORICAL EYE SURGERY; COMMENT: right November 2022, left October 2022 Dr. Owen NEPHRECTOMY Right PROCEDURE: HISTORICAL NEPHRECTOMY; COMMENT: R radical nephrectomy 05/30/15 Dr. Lindsay. Pathology negative margins f/u nephro Dr. Bailey Review of Systems Objective Visit Vitals BP 113/84 Pulse 62 Temp 36.7 ??C (98 ??F) (Temporal) Resp 16 Ht 1.803 m (71 ) Wt 89.8 kg (198 lb) SpO2 100% BMI 27.62 kg/m?? Smoking Status Former BSA 2.1 m?? Medications: Amlodipine 10 mg, aspirin 81 mg, sertraline 25 mg, apixaban 2.5 mg twice daily, albuterol HFA Allergies: None Physical Exam Lungs clear auscultation, heart regular, abdomen soft nontender, lower extremities have trace edema. No cyanosis. Ulcers are palpable and symmetrical Laboratories reviewed EKG: Sinus rhythm with second-degree type II AV block. Left axis deviation. Diffuse ST abnormalities. Incomplete right bundle branch block. documented in this encounter Procedure Notes * Angie Anderson RN - 07/08/2024 2:06 PM EST Patient sitting up in bed, eating lunch, site c/d/I, no swelling at this time. VSS, patient denies pain. * Howard Saavedra MD - 07/08/2024 11:20 AM EST Pre-Sedation Evaluation Pertinent Medical History: Stridor/Snoring/Sleep Apnea: no Previous problems with sedation: no Airway examination results: Neck extension: normal Dentition: normal ASA: Class 2 - patient with mild systemic disease Mallampati classification: II - soft palate, uvula, fauces visible Sedation plan: moderate (conscious sedation) and local anesthesia Sedation plan and risks discussed with patient. Immediate reassessment prior to sedation: Patient's status reviewed and vital signs assessed; acceptable to perform procedure and proceed to administer sedation as planned. documented in this encounter Plan of Treatment Upcoming Encounters Date Type Department Care Team (Late st Contact Info) Description 07/27/2024 1:00 PM EST Ancillary Procedure [facility] 154 300 [facility] 154 [place] [phone] 08/02/2024 11:30 AM EST Office Visit [facility] Hematology Oncology [address] [place] [phone] Kathya Boyer DO [address] [place] [address] 08/31/2024 1:00 PM EDT Appointment [facility] CT Scan [address] [place] [address] 09/09/2024 11:00 AM EDT Office Visit Internal Medicine [facility] [address] [phone] Radha Ledesma, BLAKE [address] [address] 09/15/2024 9:20 AM EDT [facility] Visit [facility] [address] 300 [facility] [address] [place] [phone] Laure Avila MD [address] [address] 10/21/2024 1:00 PM EDT Office Visit Pulmonolgy - [place] [address] [phone] Aishwarya Chapa MD [address] [address] documented as of this encounter Procedures Procedure Name Priority Date/Time Associated Diagnosis Comments ECG 12-LEAD Routine 07/08/2024 3:21 PM EST XR CHEST 1 VIEW STAT 07/08/2024 2:59 PM EST ELECTROPHYSIOLOGY PROCEDURE Routine 07/08/2024 1:47 PM EST SOB (shortness of breath) VT (ventricular tachycardia) (CMS/HCC) SSS (sick sinus syndrome) (CMS/HCC) documented in this encounter Results * ECG 12 lead PRN (07/08/2024 3:21 PM EST) Ventricular Rate ECG 80 BPM GEMUSE Atrial Rate 80 BPM GEMUSE P-R Interval 174 ms GEMUSE QRS Duration 152 ms GEMUSE Q-T Interval 432 ms GEMUSE QTc 498 ms GEMUSE R Paola 136 degrees GEMUSE T Paola -113 degrees GEMUSE ECG Interpretation Atrial-sensed ventricular-pa chucho rhythm Abnormal ECG When compared with ECG of 08-MAY-2024 05:20, Electronic ventricular pacemaker has replaced Sinus rhythm Confirmed by Keya AVILA, LAURE ([id number]) on 07/09/2024 11:00:19 AM GEMUSE 07/08/2024 3:21 PM EST 07/09/2024 11:00 AM EST us Howard Saavedra MD ECG ORDERABLES Final Result GEMUSE * XR Chest 1 View (07/08/2024 2:59 PM EST) Anatomical Region Laterality Modality Body Radiographic Angela ging 07/08/2024 3:06 PM EST Impressions 07/08/2024 3:12 PM EST FINDINGS/IMPRESSION: Interval placement of a left pacer. ??No pneumothorax. ??Increased interstitial markings at the lung bases could represent volume loss or scarring. ??There is no consolidation. ??There is no congestive heart failure. ??Degenerative osseous changes. -------- FINAL REPORT -------- Dictated By: Jimmy Coelho Dictated Date: 07/08/2024 15:06 ET Assigned Physician: Jimmy Coelho Reviewed and Electronically Signed By: Jimmy Coelho Signed Date: 07/08/2024 15:12 ET Workstation ID: [id number] Transcribed By: Self Edit Transcribed Date: 07/08/2024 15:06 ET Narrative 07/08/2024 3:12 PM EST XR CHEST 1 VIEW INDICATION: cardiac pacemaker TECHNIQUE: XR CHEST 1 VIEW COMPARISON: 05/07/2024 Procedure Note Jimmy Coelho MD - 07/08/2024 XR CHEST 1 VIEW INDICATION: cardiac pacemaker TECHNIQUE: XR CHEST 1 VIEW COMPARISON: 05/07/2024 IMPRESSION: FINDINGS/IMPRESSION: Interval placement of a left pacer. No pneumothorax.Increased interstitial markings at the lung bases could represent volumeloss or scarring. There is no consolidation. There is no congestiveheart failure. Degenerative osseous changes. -------- FINAL REPORT -------- Dictated By: Jimmy Coelho Dictated Date: 07/08/2024 15:06 ET Assigned Physician: Jimmy Coelho Reviewed and Electronically Signed By: Jimmy Coelho Signed Date: 07/08/2024 15:12 ET Workstation ID: [id number] Transcribed By: Self Edit Transcribed Date: 07/08/2024 15:06 ET Howard Saavedra MD IMG XR PROCEDURES Final Result * INSERT PPM DUAL (07/08/2024 1:47 PM EST) Anatomical Region Laterality Modality X-Ray Angiograph y Narrative 07/11/2024 10:46 AM EST ?Successful implantation of a dual-chamber conduction system pacemaker system. ??Paroxysmal atrial flutter confirmed. Study Details 83-year-old male with symptomatic nonreversible bradycardia along with atrial and ventricular arrhythmias requiring rate slowing medication Procedure Details After obtaining informed consent the patient was brought to the EP laboratory in a fasting state and was moderately sedated by nursing staff using small doses of Versed and fentanyl. After the usual sterile prep and local anesthesia with 1% lidocaine I made a 3 cm incision over the left chest. I used blunt and cautery dissection access the pectoralis muscle and form a pocket for the device. I then accessed the axillary vein twice. I placed a 7 Khmer sheath over the guidewire and placed an atrial lead down to the atrial appendage was actively fixed into place. Through the second access I placed a 9 Khmer sheath through which I advanced a C315 sheath over a guidewire into the right ventricle. I placed 3830-lead into the sheath and then mapped the right ventricular septum actively fixed in the lead in the place approximately 1 cm with clockwise rotations until I had an excellent morphology with a QR complex in lead V1 and a short left ventricular activation time. I slit the sheath and then secured both to the underlying pectoralis muscle with 1.0 Nurolon suture. I attached those leads to the device generator which was placed into the previously had pocket. The pocket was irrigated with antibiotics prior to closure with 2.0 v-loc suture and surgical glue. There was minimal blood loss no immediate complications. Device implanted: Medtronic Luttrell XT DR MRI model number W1 DR 01 serial number [id number] Right atrial lead: Medtronic model 4076 capture fix Novus serial number [id number], capture threshold not determined due to atrial flutter, lead impedance 665 ohms, flutter wave R wave 1.1 mV. Right ventricular lead Medtronic model 3830 select secure serial number [id number], capture threshold 0.5 V at 0.4 ms, impedance 741 ohms, R wave 18.1 mV. Ivy LOZANO CV ELECTROPHYSIOLOGY PROCEDURES Final Result documented in this encounter Visit Diagnoses Diagnosis SOB (shortness of breath) Shortness of breath VT (ventricular tachycardia) (CMS/HCC) Paroxysmal ventricular tachycardia SSS (sick sinus syndrome) (CMS/HCC) Sinoatrial node dysfunction SOB (shortness of breath) Shortness of breath VT (ventricular tachycardia) (CMS/HCC) Paroxysmal ventricular tachycardia SSS (sick sinus syndrome) (CMS/HCC) Sinoatrial node dysfunction Encounter for adjustment or management of cardiac device documented in this encounter Admitting Diagnoses Diagnosis SOB (shortness of breath) Shortness of breath VT (ventricular tachycardia) (CMS/HCC) Paroxysmal ventricular tachycardia SSS (sick sinus syndrome) (CMS/HCC) Sinoatrial node dysfunction documented in this encounter Administered Medications Inactive Administered Medications - up to 3 most recent administrations Medication Order MAR Action Action Date Dose Rate Site ceFAZolin (ANCEF) 2 g in sterile water 10 mL IV syringe Administer over 3 Minutes, As needed, Starting on Thu07/08/24 at 1242, Intraprocedure Given 07/08/2024 12:42 PM EST 2 g chlorhexidine (HIBICLENS) 4 % liquid Topical, Once, On Thu07/08/24 at 1015, For 1 dose, Preprocedure Given 07/08/2024 10:08 AM EST fentaNYL (PF) (SUBLIMAZE) injection As needed, Starting on Thu07/08/24 at 1230, Intraprocedure Given 07/08/2024 1:16 PM EST 25 mcg Given 07/08/2024 12:42 PM EST 25 mcg Given 07/08/2024 12:30 PM EST 50 mcg lidocaine-EPINEPHrine (XYLOCAINE W/EPI) 1 %-1:100,000 injection As needed, Starting on Thu07/08/24 at 1248, Intraprocedure Given 07/08/2024 12:48 PM EST 7 mL midazolam (VERSED) injection As needed, Starting on Thu07/08/24 at 1230, Intraprocedure Given 07/08/2024 1:07 PM EST 1 mg Given 07/08/2024 12:42 PM EST 1 mg Given 07/08/2024 12:30 PM EST 1 mg documented in this encounter Discontinued Medications Medication Sig Discontinue Reason Start Date End Da te albuterol 2.5 mg /3 mL (0.083 %) nebulizer solution Take 3 mL by nebulization every 4 (four) hours if needed for wheezing or shortness of breath (cough). 03/27/2022 07/08/2024 fluticasone furoate-vilanteroL (Breo Ellipta) 200-25 mcg/dose inhaler Inhale 1 puff by mouth 1 (one) time each day. 06/17/2024 07/08/2024 magnesium amino acid chelate (mag amino acid chelate, bulk,) 20 % powder TAKE 1 TABLET (133 MG TOTAL) BY MOUTH 2 (TWO) TIMES A DAY. 05/10/2024 07/08/2024 tiotropium (Spiriva with HandiHaler) 18 mcg per inhalation capsule Place 1 capsule (18 mcg total) into inhaler and inhale 1 (one) time each day. Inhale one capsule into the lungs daily. Inhale the contents of one capsule through the Spiriva device every AM 10/06/2022 07/08/2024 amLODIPine (NORVASC) 10 mg tablet TAKE 1 TABLET BY MOUTH EVERY DAY Stop Taking at Discharge 06/22/2024 07/09/2024 documented as of this encounter Historical Medications * This list may reflect changes made after this encounter. leuprolide (LUPRON DEPOT) 22.5 mg syringe kitIndications:ad vanced prostatic carcinoma Inject into the shoulder, thigh, or buttocks 1 (one) time. Every six months per patient, unknown dosage added in this encounter Active and Recently Administered Medications Times are shown in EST. Scheduled Medication Order 07/06/2024 07/07/2024 07/08/2024 chlorhexidine (HIBICLENS) 4 % liquid (COMPLETED) Topical, Once, On Thu07/08/24 at 1015, For 1 dose, Preprocedure 1008 (Given - Provid er: Agnieszka Ferrera RN) PRN Medication Order 07/06/2024 07/07/2024 07/08/2024 ceFAZolin (ANCEF) 2 g in sterile water 10 mL IV syringe (CANCELED) Administer over 3 Minutes, As needed, Starting on Thu07/08/24 at 1242, Intraprocedure 1242 (Given - Provid er: Drew Hui RN) fentaNYL (PF) (SUBLIMAZE) injection (CANCELED) As needed, Starting on Thu07/08/24 at 1230, Intraprocedure 1230 (Given - Provid er: Drew Hui RN)1242 (Given - Provider: Drew Hui RN)1316 (Given - Provider: Gissel Orozco RN) lidocaine-EPINEPHrine (XYLOCAINE W/EPI) 1 %-1:100,000 injection (CANCELED) As needed, Starting on Thu07/08/24 at 1248, Intraprocedure 1248 (Given - Provid er: Howard Saavedra MD) midazolam (VERSED) injection (CANCELED) As needed, Starting on Thu07/08/24 at 1230, Intraprocedure 1230 (Given - Provid er: Drew Hui, ANNA)1242 (Given - Provider: Drew Hui RN)1307 (Given - Provider: Gissel Orozco, ANNA) documented in this encounter Orders Medications Ordered That Jadiel ht Not Have Been Administered Count Last Ordered Date First Ordered Date chlorhexidine (HIBICLENS) 4 % liquid 1 11/2024 Diet Count Last Ordered Date First Orde red Date ADULT DISCHARGE DIET 1 07/08/2024 Nursing Count Last Ordered Date First Orde red Date ACTIVITY 1 07/08/2024 Discharge Count Last Ordered Date First Orde red Date DISCHARGE PATIENT 1 07/08/2024 CORE MEASURES Count Last Ordered Date First Ord ered Date REASON FOR NO VTE PROPHYLAXI S - HOSPITAL ADMISSION - MECHANICAL 1 07/08/2024 documented in this encounter Care Teams Director Of Business Applications Relationship Specialty Start Date End Date Vahid Mcclellan MD [address] [place] [address] PCP - General 03/27/23 documented as of this encounter
--- OUTSIDE RECORDS SUMMARY | 2024-07-26 11:33 | XMS_ITS | Encounter Summary ---
Author Organization [facility] [place] [address] Care Team Providers Care Motor Brakeman Name Role Phone Vahid Mcclellan MD Primary Care Provider [phone] Reason for Visit * Reason Onset Date Comments Request For Order(s) 06/23/2024 Internation al [employer] Cert 05/24/24- 07/22/24 Plan Of Care Encounter Details Date Type Department Care Team ([facility] st Contact Info) Description 06/23/2024 Telephone Internal Medicine [facility] 175 [facility] [address] [place] [phone] Ivy Connolly MA Request For Order(s) ([employer] Cert 05/24/24-07/22/24 Plan Of Care /) Social History Tobacco Use Types Packs/Day Years [...] PM EST documented as of this encounter Functional Status * Are you deaf or do you have serious difficulty hearing? Answer Date of Assessment Author No 05/08/2024 12:28 AM Argelia Seay RN * Are you blind or do [...] Argelia Seay RN documented in this encounter Progress Notes * Ivy Connolly MA - 06/27/2024 7:53 AM EST Scanned into chart and faxed to [employer] [phone] * Ivy Connolly MA - 06/23/2024 11:52 AM EST [employer] Cert 05/24/24-07/22/24 Plan Of Care Please sign & fax [phone] documented in this encounter Plan of Treatment Upcoming Encounters Date Type Department Care Team (Late st Contact Info) Description 07/27/2024 1:00 PM EST Ancillary Procedure [facility] [address] [facility] 154 [place] [phone] 08/02/2024 11:30 AM EST Office Visit [facility] Hematology Oncology [address] [place] [phone] Kathya Boyer DO [address] [place] [address] 08/31/2024 1:00 PM EDT Appointment [facility] CT Scan [address] [place] [phone] 09/09/2024 11:00 AM EDT Office Visit Internal Medicine - [place] [address] [phone] Radha Ledesma PA [address] [address] 09/15/2024 9:20 AM EDT Office Visit [facility] [address] 300 [facility] 154 [place] [phone] Ting Avila MD 300 [facility] 154 [place] [address] 10/21/2024 1:00 PM EDT Office Visit Pulmonolgy - [place] [address] [phone] Aishwarya Chapa MD [address] [address] documented as of this encounter Visit Diagnoses Not on filedocumented in this encounter Care Teams Motor Brakeman Relationship Specialty Start Date End Date Vahid Mcclellan MD [address] [address] PCP - General 03/27/23 documented as of this encounter
--- OUTSIDE RECORDS SUMMARY | 2024-07-26 11:33 | XMS_ITS | Encounter Summary ---
Author Organization [facility] Address [address] [place] [address] Phone Care Team Providers Care Sociology Research Assistant Name Role Phone Vahid Mcclellan MD Primary Care Provider [phone] Encounter Details Date Type Department Care Team (Late st Contact Info) Description 11/14/2020 Orders Only [facility] [address] [place] [address] Rivera Murray MD Chronic kidney disease stage 4 (HCC); Hypertensive renal disease; History of malignant neoplasm of kidney Social History Tobacco Use Types Packs/Day Years Used Date Smoking Tobacco: Never Smokeless Tobacco: Never Alcohol Use Standard Drinks/Week Comments No 0 (1 standard drink = 0.6 oz pur e alcohol) Sex and Gender Information Value Date Recorded Sex Assigned at Not on file Legal Sex Male 5:05 PM EST Gender Identity Not on file Sexual Orientation Not on file documented as of this encounter Plan of Treatment Not on file documented as of this encounter Procedures Procedure Name Priority Date/Time Associated Diagnosis Comments CBC Routine 02/08/2021 10:18 AM EDT Chronic kidney disease stage 4 (HCC) Hypertensive renal disease History of malignant neoplasm of kidney RENAL FUNCTION PANEL Routine 02/08/2021 10:18 AM EDT Chronic kidney disease stage 4 (HCC) Hypertensive renal disease History of malignant neoplasm of kidney documented in this encounter Results * (ABNORMAL) Renal function panel (02/08/2021 10:18 AM EDT) Glucose 121(H) (70-99) MG/DL [facility] BUN 29(H) (8-23) MG/DL [facility] Creatinine 1.9(H) (0.7-1.2) MG/DL [facility] Sodium 142 (133-145) MMOL/L [facility] Potassium 4.5 (3.6-5.2) MMOL/L [facility] Chloride 107 (98-107) MMOL/L [facility] Bicarbonate (CO2) 23 (22-29) MMOL/L [facility] Anion Gap 12 (4-17) [facility] Albumin 4.2 (3.4-4.8) GM/DL [facility] Calcium 9.4 (8.6-10.5) MG/DL [facility] Phosphorus, Serum 3.2 (2.5-4.5) MG/DL [facility] Est GFR Non 32 ML/MIN/1.7 3 M2 [facility] Comment: Creatinine based estimated glomerular filtration rate (eGFR) is calculated using the Chronic Kidney Disease Epidemiology Collaboration (CKD-EPI). The CKD-EPI creatinine equation has not been validated in children (<18 years), women or in some racial or ethnic subgroups other than Caucasians and Americans. EST GFR 37 ML/MIN/1.7 3 M2 [facility] Comment: Creatinine based estimated glomerular filtration rate (eGFR) is calculated using the Chronic Kidney Disease Epidemiology Collaboration (CKD-EPI). The CKD-EPI creatinine equation has not been validated in children (<18 years), women or in some racial or ethnic subgroups other than Caucasians and Americans. Testing performed or reported by [facility], a Service of [facility], [address] [place] [address] Katlin Morales MD, Civil Engineering Teacher [facility]# [id number] Blood (Blood, Venous) 02/08/2021 10:18 AM EDT 02/08/2021 10:19 AM EDT us Rivera Murray MD LAB BLOOD ORDERABLES Final Resul t [facility] * (ABNORMAL) CBC (02/08/2021 10:18 AM EDT) White Blood Cells 5.2 (4.0-11.0) K/MM3 [facility] RBC 4.62(L) (4.70-6.10 ) M/MM3 [facility] Hgb 13.4(L) (13.7-17.1 ) GM/DL [facility] Hematocrit 43.2 (40.5-50.0 ) % [facility] MCV 93.5 (80.0-94.0 ) FL [facility] MCH 29.0 (27.0-34.0 ) PG [facility] MCHC 31.0(L) (33.0-37.0 ) g/dL [facility] Platelets 222 (150-460) K/MM3 [facility] RDW-SD 46.0 (<47.0) FL [facility] MPV 10.3 (9.4-12.4) FL [facility] nRBC Count 0.0 #/100 WBC'S [facility] NRBC Absolute 0.0 K/MM3 [facility] Comment: Testing performed or reported by [facility], a Service of [facility], [address] [place] [address] Katlin Morales MD, Civil Engineering Teacher [facility]# [id number] Blood (Blood, Venous) 02/08/2021 10:18 AM EDT 02/08/2021 10:19 AM EDT us Rivera Murray MD LAB BLOOD ORDERABLES Final Resul t [facility] documented in this encounter Visit Diagnoses Diagnosis Chronic kidney disease stage 4 (HCC) Hypertensive renal disease History of malignant neoplasm of kidney documented in this encounter Care Teams Sociology Research Assistant Relationship Specialty Start Date End Date Vahid Mcclellan MD [address] [place] [address] PCP - General 06/11/20 documented as of this encounter
--- OUTSIDE RECORDS SUMMARY | 2024-07-26 11:33 | XMS_ITS | Encounter Summary ---
Author Organization [facility] Address [address] [place] [address] Phone Care Team Providers Care Scale Clerk Name Role Phone Vahid Mcclellan MD Primary Care Provider [phone] Encounter Details Date Type Department Care Team (Late st Contact Info) Description 11/12/2021 Telephone [facility] [address] [facility] [address] [place] [address] Rivera Murray MD Social History Tobacco Use Types Packs/Day Years [...] on file documented as of this encounter Miscellaneous Notes * Telephone Encounter - Annabella Silva - 11/12/2021 11:51 AM EDT Pt called, he would like to review the results of his CT scan from 11/07/21. Please call him back at [phone] Thank you documented in this encounter Plan of Treatment Not on file documented as of this encounter Visit Diagnoses Not on filedocumented in this encounter Care Teams Scale Clerk Relationship Specialty Start Date End Date Vahid Mcclellan MD [address] [place] [address] PCP - General 06/11/20 documented as of this encounter
--- OUTSIDE RECORDS SUMMARY | 2024-07-26 11:33 | XMS_ITS | Encounter Summary ---
Author Organization [facility] Address [address] [place] [address] Phone Care Team Providers Care Tire Technician Name Role Phone Vahid Mcclellan MD Primary Care Provider [phone] Encounter Details Date Type Department Care Team (Late st Contact Info) Description 11/05/2021 Telephone [facility] [address] [place] [phone] Rivera Murray MD Social History Tobacco Use [...] * Telephone Encounter - Annabella Silva - 11/05/2021 4:51 PM EDT Pt called, charlee cancelled his CT scan because his lab work was too high. He would like to speak with you about what should be done next. Please advise CB# [phone] documented in this encounter Plan of Treatment Not on file documented as of this encounter Visit Diagnoses Not on filedocumented in this encounter Care Teams Tire Technician Relationship Specialty Start Date End Date Vahid Mcclellan MD [address] [place] [address] PCP - General 06/11/20 documented as of this encounter
--- OUTSIDE RECORDS SUMMARY | 2024-07-26 11:33 | XMS_ITS | Encounter Summary ---
Author Organization [facility] [place] [address] Care Team Providers Care Mortgage Processor Name Role Phone Vahid Mcclellan MD Primary Care Provider [phone] Reason for Visit * Auth/Cert (Routine) Specialty Diagnoses / Procedures Referred By Contac t Referred To Contact Diagnoses SOB (shortness of breath) VT (ventricular tachycardia) ([facility]/HCC) SSS (sick sinus syndrome) ([facility]) SSS Procedures CT INSERTION NEW/REPLACEMENT PPM W/TRANSVENOUS ELECTRODE ATRIAL&VENTRICULAR Insert PPM dual chamber Howard Saavedra MD [address] [address] Phone: tel: fax: [facility] Cardiac Resolution Manager [address] [place] [address] Phone: tel: Referral ID Status Reason Start Date Expiration Date Visits Re quested Visits Authorized [id number] 1 1 Encounter Details Date Type Department Care Team (Latest Contact Info) Description 07/08/2024 9:21 AM EST - 07/08/2024 11:59 PM EST Hospital Encounter [facility] Cardiac Resolution Manager [address] [place] [address] Howard Saavedra MD [address] [address] SOB (shortness of breath); VT (ventricular tachycardia) ([facility]/HCC); SSS (sick sinus syndrome) ([facility]) Discharge Disposition: Home or Self Care Social History Tobacco Use Types Packs/Day Years [...] Sign Reading Time Taken Comments Blood Pressure 138/79 07/08/2024 3:30 PM EST Pulse 80 07/08/2024 3:30 PM EST Temperature 36.7 ??C (98 ??F) 07/08/2024 9:51 AM EST Respiratory Rate 16 07/08/2024 2:35 PM EST Oxygen Saturation 97% 07/08/2024 3:30 PM EST Inhaled Oxygen Concentration - - Weight [...] 12:28 AM EST Argelia Rhodes RN * Do you have serious difficulty walking or climbing stairs? Answer Date of Assessment Author No 05/08/2024 12:28 AM EST Argelia Rhodes RN * Do you have serious difficulty [...] through Care Everywhere. * Biventricular Pacemaker: Post-op (German) * Sedation (German) documented in this encounter Medications at Time [...] needed for wheezing. 6.7 g 11 06/17/2024 budesonide-formo teroL (SYMBICORT) 160-4.5 mcg/actuation inhaler Inhale [...] mouth 1 (one) time each day. 03/03/2024 documented as of this encounter Ordered Prescriptions [...] SOB (shortness of breath) VT (ventricular tachycardia) ([facility]) SSS (sick sinus syndrome) ([facility]) Plan dual-chamber permanent pacemaker implantation. Risks and [...] Description 07/27/2024 1:00 PM EST Ancillary Procedure [facility] - [facility] 154 300 [facility] 154 [place] [phone] 08/02/2024 11:30 AM EST Office Visit [facility] Hematology Oncology [address] [place] [phone] Kathya Boyer DO [address] [place] [address] 08/31/2024 1:00 PM EDT Appointment [facility] CT Scan [address] [place] [phone] 09/09/2024 11:00 AM EDT Office Visit [facility] [place] [address] [phone] Radha Ledesma PA [address] [address] 09/15/2024 9:20 AM EDT Office Visit [facility] - [facility] [address] 300 [facility] 154 [place] [phone] Ting Avila MD 300 [facility] 154 [place] [address] 10/21/2024 1:00 PM EDT Office Visit Pulmonolgy - [place] [address] [phone] Aishwarya Chapa MD [address] [address] documented as of this encounter Procedures Procedure Name Priority Date/Time Associated Diagnosis Comments ECG 12-LEAD Routine 07/08/2024 3:21 PM EST XR CHEST 1 VIEW STAT 07/08/2024 2:59 PM EST ELECTROPHYSIOLOGY PROCEDURE Routine 07/08/2024 1:47 PM EST SOB (shortness of breath) VT (ventricular tachycardia) ([facility]/HCC) SSS (sick sinus syndrome) ([facility]/HCC) documented in this encounter Results * ECG 12 lead PRN (07/08/2024 3:21 PM EST) Ventricular Rate ECG 80 BPM GEMUSE Atrial Rate 80 BPM GEMUSE P-R Interval 174 ms GEMUSE QRS Duration 152 ms GEMUSE Q-T Interval 432 ms GEMUSE QTc 498 ms GEMUSE R Zanoni 136 degrees GEMUSE T Zanoni -113 degrees GEMUSE ECG Interpretation Atrial-sensed ventricular-pa chucho rhythm Abnormal ECG When compared with ECG of 08-MAY-2024 05:20, Electronic ventricular pacemaker has replaced Sinus rhythm Confirmed by Keya AVILA YUFENG ([id number]) on 07/09/2024 11:00:19 AM GEMUSE 07/08/2024 [...] Signed Date: 07/08/2024 15:12 ET Workstation ID: [id number] Transcribed By: Self Edit Transcribed Date: 07/08/2024 [...] Signed Date: 07/08/2024 15:12 ET Workstation ID: [id number] Transcribed By: Self Edit Transcribed Date: 07/08/2024 [...] axillary vein twice. I placed a 7 Peruvian sheath over the guidewire and placed an atrial lead down to the atrial appendage was actively fixed into place. Through the second access I placed a 9 Peruvian sheath through which I advanced a C315 [...] loss no immediate complications. Device implanted: Medtronic Michelle XT DR MRI model number W1 DR 01 serial number [id number] Right atrial lead: Medtronic model 4076 capture fix Novus serial number [id number], capture threshold not determined due to atrial flutter, lead impedance 665 ohms, flutter wave R wave 1.1 mV. Right ventricular lead Medtronic model 3830 select secure serial number [id number], capture threshold 0.5 V at 0.4 ms, [...] MAR Action Action Date Dose Rate Site chlorhexidine (HIBICLENS) 4 % liquid Topical, Once, On Thu07/08/24 at 1015, For 1 dose, Preprocedure Given 07/08/2024 10:08 AM EST documented in this encounter Discontinued Medications Medication [...] Drew Hui RN)1316 (Given - Provider: Gissel Orozco, ANNA) lidocaine-EPINEPHrine (XYLOCAINE W/EPI) 1 %-1:100,000 injection (CANCELED) As needed, Starting on Thu07/08/24 at 1248, Intraprocedure 1248 (Given - Provid er: Howard Saavedra MD) midazolam (VERSED) injection (CANCELED) As needed, Starting on Thu07/08/24 at 1230, Intraprocedure 1230 (Given - Provid er: Drew Hui RN)1242 (Given - Provider: Drew Hui RN)1307 (Given - Provider: Gissel Orozco, ANNA) documented in this encounter Orders Medications Ordered That Jadiel ht Not Have Been Administered Count Last Ordered Date First Ordered Date ceFAZolin (ANCEF) 2 g in lacey rile water 10 mL IV syringe 1 07/08/2024 chlorhexidine (HIBICLENS) 4 % liquid 1 11/2024 fentaNYL (PF) (SUBLIMAZE) injection 1 07/08 lidocaine-EPINEPHrine (XYLOC JOLIE W/EPI) 1 %-1:100,000 injection 1 07/08/2024 midazolam (VERSED) injection 1 07/08/2024 Diet Count Last Ordered Date First Orde [...] 07/08/2024 documented in this encounter Care Teams Mortgage Processor Relationship Specialty Start Date End Date Vahid Mcclellan MD [address] [place] [address] PCP - General 03/27/23 documented as of this encounter
--- OUTSIDE RECORDS SUMMARY | 2024-07-26 11:33 | XMS_ITS | Encounter Summary ---
Author Organization [facility] [place] [address] Care Team Providers Care Real Property Evaluator Name Role Phone Vahid Mcclellan MD Primary Care Provider [phone] Reason for Visit * Reason Onset Date Comments Referral 06/06/2024 Request for insu latoya referral, [facility] Encounter Details Date Type Department Care Team ([facility] st Contact Info) Description 06/06/2024 Telephone Internal Medicine - [place] 175 [facility] [address] [place] [phone] Vahid Mcclellan MD 175 [facility] [address] [place], [place] [phone] Referral (Request for insurance referral, [facility]) Social History Tobacco Use Types Packs/Day Years [...] documented in this encounter Progress Notes * Jena Leone - 06/06/2024 9:52 AM EST Request for an insurance referral Caller: Inga Office: [facility] Insurance: [facility] ID: [id number] Provider: Meir Matias DOS: 06/10/24 Visits: 6 Dx code: H35.3211 IMPORTANT Pls copy and paste this into the order. Otherwise, it will not be processed as an ins referral documented in this encounter Plan of Treatment Upcoming Encounters Date Type Department Care Team (Late st Contact Info) Description 07/27/2024 1:00 PM EST Ancillary Procedure [facility] Associates - [address] 300 [facility] 154 [place] [address] 08/02/2024 11:30 AM EST Office Visit [facility] Hematology Oncology [address] [place] [phone] Kathya Boyer DO 271 [place] [address] 08/31/2024 1:00 PM EDT Appointment [facility] CT Scan [address] [place] [address] 09/09/2024 11:00 AM EDT Office Visit Internal Medicine - [place] [address] [phone] Radha Ledesma, BLAKE [address] [address] 09/15/2024 9:20 AM EDT Office Visit [facility] - [facility] [address] [phone] Ting Avila MD [address] [address] 10/21/2024 1:00 PM EDT Office Visit Pulmonolgy - [place] [address] [phone] Aishwarya Chapa MD [address] [address] documented as of this encounter Visit Diagnoses Not on filedocumented in this encounter Care Teams Real Property Evaluator Relationship Specialty Start Date End Date Vahid Mcclellan MD [address] [address] PCP - General 03/27/23 documented as of this encounter
--- OUTSIDE RECORDS SUMMARY | 2024-07-26 11:33 | XMS_ITS | Encounter Summary ---
Author Organization [facility] [place] [address] Care Team Providers Care Conservation Agent Name Role Phone Vahid Mcclellan MD Primary Care Provider [phone] Encounter Details Date Type Department Care Team (Late st Contact Info) Description 03/01/2024 11:18 AM EDT Hospital Encounter TH HISTORIC ENCOUNTERS EASTERN CONVERSION ONLY Kathya Boyer, DO [address] [place] [address] Social History Tobacco Use Types Packs/Day Years [...] 1:29 PM EDT documented in this encounter Progress Notes * Kathya Boyer MD - 03/01/2024 11:30 AM EDT Images from the original note were not included. Progress Notes by Kathya Boyer DO at 03/01/2024 11:30 AM Author: Kathya Boyer DO Service: -- Author Type: Physician Filed: 03/01/2024 1:09 PM Encounter Date: 03/01/2024 Status: Signed Harness Builder: Kathya Boyer DO (Physician) Hematology/Oncology Follow Up Note Date: 03/01/2024 Subjective Interval history Patient presents today accompanied by his son. Reports he is feeling fair overall. Since last visit he had several emergency room and hospital visits. He had a fall in October, and November he had respiratory failure due to COPD and COVID-19, in November he had another fall He is [...] in 10 out of 13 cores highest [place] score 4+5 = 9, grade group 5. 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 And spent several weeks at [facility] rehabilitation. PSA June 2023 went down to [...] Imaging CT Pelvis WO - 11/11/23 - 1758 Report Status:Signed CT pelvis without contrast Comparison: [...] This document has been electronically signed by: Gayle Gonsalez MD on 11/11/2023 19:45:38 Dictating Physician: GAYLE GONSALEZ MD Electronically Signed by: GAYLE GONSALEZ MD Dic Date/Time: 11/11/231944 Sign date/Time: 11/11/23 [id number] Assessment & Plan 83 year-old male [...] up Sign: Nuzhat Boyer DO Hematology/Oncology Sister [facility] [phone] CC: Vahid Mcclellan MD Tyson, Adam MD documented in this encounter Plan of Treatment Upcoming Encounters Date Type Department Care Team (Late st Contact Info) Description 07/27/2024 1:00 PM EST Ancillary Procedure [facility]iology Associates - [facility] 154 300 [facility] 154 [place] [address] 08/02/2024 11:30 AM EST Office Visit [facility] Hematology Oncology [address] [place] [phone] Kathya Boyer DO 271 [place] [address] 08/31/2024 1:00 PM EDT Appointment [facility] CT Scan [address] [place] [phone] 09/09/2024 11:00 AM EDT Office Visit Internal Medicine - [place] 175 [facility] [address] [place] [phone] Radha Ledesma PA 175 [facility] [address] [place] [address] 09/15/2024 9:20 AM EDT Office Visit [facility] Associates - [facility] [address] 300 [facility] 154 [place] [phone] Ting Avila MD 300 [facility] [address] [place] [address] 10/21/2024 1:00 PM EDT Office Visit Pulmonolgy - [place] 175 [facility] 200 [place] [address] Aishwarya Chapa MD 175 [facility] 200 [place] [address] documented as of this encounter Procedures Procedure Name Priority Date/Time Associated Diagnosis Comments ..MISCELLANEOUS REFERENCE LAB TEST 03/01/2024 documented in this encounter Results * Miscellaneous reference lab test (03/01/2024) us Provider Onbase LAB BLOOD ORDERABLES Final Re sult documented in this encounter Visit Diagnoses Not on filedocumented in this encounter Care Teams Conservation Agent Relationship Specialty Start Date End Date Vahid Mcclellan MD 175 [facility] 200 [place] [address] PCP - General 03/27/23 documented as of this encounter
--- OUTSIDE RECORDS SUMMARY | 2024-07-26 11:33 | XMS_ITS | Encounter Summary ---
Author Organization [facility] [place] [address] Care Team Providers Care Warehouse Stock Clerk Name Role Phone Vahid Mcclellan MD Primary Care Provider [phone] Reason for Visit * Reason Onset Date Comments Request For Order(s) 06/23/2024 [facility] Orders 05/17/24 Encounter Details Date Type Department Care Team ([facility] st Contact Info) Description 06/23/2024 Telephone Internal Medicine [address] [place] [phone] Ivy Connolly MA Request For Order(s) ([facility] Orders 05/17/24 /) Social History Tobacco Use Types Packs/Day [...] Notes * Ivy Connolly MA - 06/27/2024 7:55 AM EST Scanned into chart and faxed to [facility] [phone] * Ivy Connolly MA - 06/23/2024 11:45 AM EST [facility] Orders 05/17/24 Please sign & fax [phone] documented in this encounter Plan of Treatment Upcoming Encounters Date Type Department Care Team (Late st Contact Info) Description 07/27/2024 1:00 PM EST Ancillary Procedure [facility]iology Associates - [address] [place] [address] 08/02/2024 11:30 AM EST Office Visit [facility] Hematology Oncology [address] [place] [phone] Kathya Boyer DO 271 [place] [address] 08/31/2024 1:[address] [facility] CT Scan [address] [place] [phone] 09/09/2024 11:00 AM EDT Office Visit Internal Medicine - [place] [address] [phone] Radha Ledesma PA [address] [address] 09/15/2024 9:20 AM EDT Office Visit [facility] - [facility] [address] [phone] Ting Avila MD [address] [address] 10/21/2024 1:00 PM EDT Office Visit Pulmonolgy - [place] [address] [phone] Aishwarya Chapa MD [address] [address] documented as of this encounter Visit Diagnoses Not on filedocumented in this encounter Care Teams Warehouse Stock Clerk Relationship Specialty Start Date End Date Vahid Mcclellan MD [address] [address] PCP - General 03/27/23 documented as of this encounter
--- OUTSIDE RECORDS SUMMARY | 2024-07-26 11:33 | XMS_ITS | Clinical Summary ---
Author Organization [facility] Address [address] [id number] Care Team Providers Care Hand Ii Tube Bender Name Role Phone Vahid Mcclellan MD Primary Care Provider Unavailab le Allergies No known active allergies Medications Medication Sig Dispensed Refills Start Date End Date Status bicalutamide (CASODEX) 50 MG tablet Take 1 tablet (50 mg total) by mouth daily 0 Active atorvastatin (LIPITOR) tablet 40 mg Take 1 tablet (40 mg total) by mouth daily. 0 Active aspirin 81 MG EC tablet Take 1 tablet (81 mg total) by mouth daily. 0 Active amLODIPine (NORVASC) tablet 10 mg Take 1 tablet (10 mg total) by mouth daily. 0 Active docusate sodium (COLACE) 100 MG capsule Take 1 capsule (100 mg total) by mouth 2 (two) times a day. 0 Active budesonide-formoter ol (SYMBICORT) 160-4.5 MCG/ACT inhaler Inhale 2 inhalations into the lungs 2 (two) times a day. 0 Active tiotropium (SPIRIVA) [address] 1 capsule (18 mcg total) into inhaler and inhale daily. 0 Active tamsulosin (FLOMAX) 0.4 MG CAPS Take 2 capsules (0.8 mg total) by mouth daily. 0 Active albuterol (PROVENTIL) (2.5 MG/3ML) 0.083% nebulizer solution Take 3 mL (2.5 mg total) by nebulization every 6 (six) hours as needed for wheezing. 0 Active allopurinol (ZYLOPRIM) 100 MG tablet Take 1 tablet (100 mg total) by mouth daily. 0 Active Active Problems No known active problems Family History Relation Name Status Comments Father Mother Social History Tobacco Use Types Packs/Day Years Used Date Smoking Tobacco: Former Cigarettes 1 30 Smokeless Tobacco: Never Tobacco Cessation:Counseling Given: Not Answered Alcohol Use Standard Drinks/Week Comments Not Currently 0 (1 standard drink = 0.6 oz pur e alcohol) Sex and Gender Information Value Date Recorded Sex Assigned at Male 03/27/2023 9:15 AM EDT Gender Identity Not on file Sexual Orientation Not on file Job Start Date Occupation Industry Not on file Not on file Not on file Last Filed Vital Signs Vital Sign Reading Time Taken Comments Blood Pressure 129/54 03/01/2024 11:50 AM EDT Pulse 72 03/01/2024 11:50 AM EDT Temperature 36.1 ??C (96.9 ??F) 03/01/2024 11:50 AM E DT Respiratory Rate - - Oxygen Saturation 97% 03/01/2024 11:50 AM EDT Inhaled Oxygen Concentration - - Weight 90.3 kg (199 lb) 03/01/2024 11:50 AM EDT Height 180.3 cm (5' 11 ) 09/22/2023 10:55 AM EDT Body Mass Index 27.75 09/22/2023 10:55 AM EDT Plan of Treatment Health Maintenance Due Date Last Done Comments Depression Screening 1952 Preventative Health Evaluation 10/24/1957 DTap / Tdap / Td (1 - Tdap) 10/24/1958 Shingrix-Zoster Vaccine (1 of 2) 10/24/1958 Fall Risk Assessment 10/24/2004 RSV Adult > 60+ Yrs or (1 - 1-dose 75+ series) 10/24/2014 COVID-19 Vaccine (3 - Pfizer risk series) 09/01/2020 08/04/2020, 07/14/2020 Influenza Vaccine (#1) 2024 2, 03/07/2022, 05/02/2019, Additional history exists Pneumococcal Vaccine Completed 04/01/2016, 03/27/2015, 07/08/2011 Hepatitis B Vaccines Aged Out No long er eligible based on patient's age to complete this topic RSV Ped < 20 months Aged Out No longe r eligible based on patient's age to complete this topic Care Teams Hand Ii Tube Bender Relationship Specialty Start Date End Date Vahid Mcclellan MD PCP - General Internal Medicine 03/27/23
--- OUTSIDE RECORDS SUMMARY | 2024-07-26 11:34 | XMS_ITS ---
Author Organization [address] [facility] Address [address] [place] [address] Phone Care Team Providers Care Customs Officer Name Role Phone Vahid Mcclellan MD Primary Care Provider [phone] Active Problems Problem Noted Date Diagnosed Date SSS (sick sinus syndrome) 05/20/2024 VT (ventricular tachycardia) 05/18/2024 Assessment & Plan (05/20/2024 1:35 PM EST): Ventricular tachycardia versus aberrant conduction. Will review 30-day monitor when return. If he has frequent tachycardia and need a beta-asher, he will need a pacemaker. 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 He had 2 EKGs during that hospitalization and I do not see telemetry tracing scanned into his record. Both EKGs actually showed sinus rhythm. I am not sure whether he truly had atrial fibrillation. He did have a prolonged episode of palpitation a few weeks ago lasting for about an hour. Given his risk factors, he definitely has increased risk of A-fib. I will schedule a 30-day monitor to further evaluate the palpitation symptom. Chest discomfort 04/14/2024 Assessment & Plan (05/20/2024 1:35 PM EST): Remain atypical. Normal stress test is reassuring. Will continue current regimen. Assessment & Plan (04/14/2024 4:47 PM EST): He had a chest discomfort associate with the palpitations 3 weeks ago and sometimes had atypical sharp chest pain. I discussed with him and his son about consideration for stress test. 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 Both the patient and his son prefer holding off stress test at this point. Will further discuss after 30-day monitor. History of kidney cancer 07/27/2023 SOB (shortness of breath) 01/22/2023 Overview (07/27/2023): Last Assessment & Plan: He could have a cor pulmonale due to severe COPD. I will schedule echocardiogram to assess his the right side structure and function, pulmonary tear systolic pressure and CVP. We will continue current regimen. Cataract surgery is a minor procedure and there is no further testing needed prior to the surgery. Depends on his further oncology work-up for prostate cancer, will further address future follow-up of his cardiac status. Assessment & Plan (05/20/2024 1:35 PM EST): Mostly from pulmonary issue. Abnormal EKG 01/19/2023 Colon polyp 04/19/2018 Hypertension 01/07/2018 Overview (07/27/2023): Last Assessment & Plan: Blood pressure slightly higher today. He was rushing to the office. We will follow-up the blood pressure to decide whether he needs further adjustment of his regimen. Hyperlipidemia 01/07/2018 Leg cramping 01/07/2018 Chronic obstructive pulmonary disease 01/07/2018 Gout 10/01/2017 CKD (chronic kidney disease), stage III 10/02/19 18 Overview (07/27/2023): Comments: nephro Dr. Bailey Lung nodule 10/01/2017 Overview (07/27/2023): Comments: CT 10/28/17 essentially stable subcentimeter pulmonary nodules when compared to 2015 & 2016 Tubular adenoma 12/03/2016 Diverticulosis of colon 04/30/2016 Current Oncology Plans No current plan information found. Past Plans No past plan information found. Radiation Treatments * No radiation treatments are documented for this patient in [facility]. Treatments may have been administered in another system. Lifetime Dose Tracking * Chemical Lifetime Dose Automatic Entry Manual Entr y Radiation 205 mGy 0 mGy 205 mGy Fluoro Time 8.1 minutes 0 minutes 8.1 minutes Resolved Problems Problem Noted Date Diagnosed Date Resolved Date Chest pain, unspecified type 05/08/2024 05/09/2024 Chest pain 05/07/2024 05/09/2024 Chronic atrial fibrillation 04/25/2024 05/20/2024
--- OUTSIDE RECORDS SUMMARY | 2024-07-26 11:34 | XMS_ITS | Encounter Summary ---
Author Organization [facility] [place] [address] Care Team Providers Care Safe And Vault Mechanic Name Role Phone Vahid Mcclellan MD Primary Care Provider [phone] Reason for Visit * Reason Onset Date Comments Maryellen CHANG 07/15/2024 Encounter Details Date Type Department Care Team ([facility] st Contact Info) Description 07/15/2024 Telephone Internal Medicine - [place] [facility] [address] [place] [address] Vahid Mcclellan MD 175 [facility] [address] [place] [address] Eleuterio: Social History Tobacco Use Types Packs/Day Years [...] documented in this encounter Progress Notes * Gui He MA - 07/18/2024 9:18 AM EST FYI message below * Nannette Owens - 07/15/2024 4:57 PM EST [facility] called and let us know that the patient was 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 documented in this encounter Plan of Treatment Upcoming Encounters Date Type Department Care Team (Late st Contact Info) Description 07/27/2024 1:00 PM EST Ancillary Procedure [facility] - [address] [place] [address] 08/02/2024 11:30 AM EST Office Visit [facility] Hematology Oncology [address] [place] [phone] Kathya Boyer DO [address] [place] [address] 08/31/2024 1:00 PM EDT Appointment [facility] CT Scan [address] [place] [phone] 09/09/2024 11:00 AM EDT Office Visit Internal Medicine - [place] [address] [phone] Radha Ledesma PA [address] [address] 09/15/2024 9:20 AM EDT Office Visit [facility] - [facility] [address] [phone] Ting Avila MD [address] [address] 10/21/2024 1:00 PM EDT Office Visit Pulmonolgy - [place] [address] [phone] Aishwarya Chapa MD [address] [address] documented as of this encounter Visit Diagnoses Not on filedocumented in this encounter Care Teams Safe And Vault Mechanic Relationship Specialty Start Date End Date Vahid Mcclellan MD [address] [address] PCP - General 03/27/23 documented as of this encounter
--- OUTSIDE RECORDS SUMMARY | 2024-07-26 11:34 | XMS_ITS | Encounter Summary ---
Author Organization [facility] [place] [address] Care Team Providers Care Green Chain Worker Name Role Phone Vahid Mcclellan MD Primary Care Provider [phone] Encounter Details Date Type Department Care Team ([facility] st Contact Info) Description 07/19/2024 Telephone [facility] - [facility] [address] [facility] [address] [place] [address] Ting Avila MD 300 [facility] [address] [place] [address] Social History Tobacco Use Types Packs/Day Years [...] documented in this encounter Progress Notes * Paul Mathis RN - 07/19/2024 2:30 PM EST Spoke to pt and confirmed he was concerned with bruising moving from implnat site to upper abdomen and also across to R side of his chest. Pt denies any drg, fever, pain or increased swelling at site. Pt actually confirms a generalized reduction in swelling at the site. Pt also admits to slppeing on his Right side. I explained these are all signs of natural healing and given his ASA and Eliquis prescriptions- some original bruising at implant site (and subsequent gravitational dispersal) was chas expected. Encouraged pt to watch for signs of infection as discussed and to call us with any further concerns. Also reminded pt of upcoming first device check on 07.27.24. Pt thanked us for the call, reassurance and states an agreement with plan. * Nhung Bell MA - 07/19/2024 2:02 PM EST Device implant 2.7. ; could you f/u with this call please ? * Waqas Liu - 07/19/2024 1:14 PM EST Patient calling to ask about bruising on his chest from his pacemaker. He informed me that even hisother side of his chest where the pacemaker is not located is even bruising. He would like a call back to see if this is normal or need to move forward with a different plan. The pace maker was installed on 07/08/24. documented in this encounter Plan of Treatment Upcoming Encounters Date Type Department Care Team (Late st Contact Info) Description 07/27/2024 1:00 PM EST Ancillary Procedure [facility] - [facility] 154 300 [facility] [address] [place] [address] 08/02/2024 11:30 AM EST Office Visit [facility] Hematology Oncology [address] [place] [address] Kathya Boyer, DO [address] [place] [address] 08/31/2024 1:00 PM EDT Appointment [facility] CT Scan [address] [place] [address] 09/09/2024 11:00 AM EDT Office Visit Internal Medicine - [place] 175 [facility] [address] [place] [phone] Radha Ledesma PA 175 [facility] [address] [place] [address] 09/15/2024 9:20 AM EDT Office Visit [facility] Cardiology [facility] - [facility] 154 300 [facility] [address] [place] [phone] Ting Avila MD 300 [facility] [address] [place] [address] 10/21/2024 1:00 PM EDT Office Visit Pulmonolgy - [place] 175 [facility] [address] [place] [address] Aishwarya Chapa MD 175 [facility] [address] [place] [address] documented as of this encounter Visit Diagnoses Not on filedocumented in this encounter Care Teams Green Chain Worker Relationship Specialty Start Date End Date Vahid Mcclellan MD 175 [facility] [address] [place] [address] PCP - General 03/27/23 documented as of this encounter
[2024-07-26 18:29] LABS: Anion Gap 14 (12-20); Blood Urea Nitrogen 32 mg/dL (9-16); Carbon Dioxide 22 mmol/L (22-29); Chloride 110 mmol/L (96-108); Estimated Glomerular Filt Rate 52; Potassium 4.6 mmol/L (3.3-5.1); Sodium 141 mmol/L (135-145)
== END 2024-07-26 09:59 | disposition home or self-care (01) ==
LOC: HO.HKASLDS 09:58
PROVIDERS: Visit Provider Internal Medicine Nephrology
DX: I12.9 Hypertensive chronic kidney disease with stage 1 through stage 4 chronic kidney disease, or unspecified chronic kidney disease (principal); E79.0 Hyperuricemia without signs of inflammatory arthritis and tophaceous disease; N18.31 Chronic kidney disease, stage 3a; Z90.5 Acquired absence of kidney
CPT/HCPCS: 36415; 80051; 82565; 84520

== ENCOUNTER 2024-07-28 10:59 | Outpatient (AMB) | payer MEDICARE, SELFPAY ==
--- NOTE | 2024-07-28 11:04 | HO.NEPHOV_ITS ---
Vital Signs 07/28/24 11:06 Height 5 ft 11 in Weight 204 lb 2 oz BMI 28.5 BP 124/60 Blood Pressure Location Lt brachial Position Sitting Pulse 77 Pulse Source Pulse Oximeter Pulse Oximetry (%) 98 Oxygen Delivery Method Room Air Intake Visit Reasons: Follow Up 4mo-Conf Wireline Supervisor Required: No Accompanied by: Self / Same As Patient Allergies No Known Allergies Allergy (Verified 07/28/24 11:06) HPI Comments Details: Mr. Marcano was seen in follow-up of his chronic kidney disease and hypertension. He follows up with Urology annually due to his history of right renal cell carcinoma and status post nephrectomy in 2014. He also has prostate cancer and is following with Oncologist. His serum creatinine had been stable . He denies any chest pain, shortness of breath, nausea vomiting, diarrhea, pedal edema or any urinary symptoms. He has no orthostasis. He is compliant with adequate fluid intake and avoids nonsteroidal anti-inflammatory medications. 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 His BP is at goal. He recently had a pacemaker for sick sinus syndrome. [facility] Medical History (Updated 07/28/24 @ 11:06 by Shae Douglas MA) Pacemaker Prostate cancer History of renal cell cancer Acquired solitary kidney Essential (primary) hypertension CKD (chronic kidney disease) stage 3, GFR 30-59 ml/min Surgical History History of nephrectomy Social History Alcohol intake: never Patient Tobacco Use Status: Never used Tobacco Review of Systems Const All systems reviewed & are unremarkable except as noted in HPI and below Physical Exam Vital Signs: Last Vital Signs Pulse 77 07/28/24 11:06 BP 124/60 07/28/24 11:06 Pulse Ox 98 07/28/24 11:06 Oxygen Delivery Method Room Air 07/28/24 11:06 BMI result Body Mass Index 28.5 Const General: comfortable and no acute distress Orientation/consciousness: patient oriented x3 HEENT Head: Yes normocephalic Mouth: Normal oral and palatal mucosa present Eyes EOM: EOMs intact bilaterally Neck Neck: Yes supple Resp Auscultation: clear to auscultation bilaterally Cardio Jugular venous distension: no JVD Rate: regular rate GI Palpation (GI): Soft to palpation Auscultation: normal bowel sounds General: Yes no CVA tenderness Back/Spine/Pelvis Back: no CVA tenderness Skin General skin exam: no rashes or lesions noted Neuro General: patient oriented x3 and moves all extremities Extrem General: Yes no pedal edema Results Reviewed Nephrology Results: Sodium 141 mmol/L (135-145) 07/26/24 Potassium 4.6 mmol/L (3.3-5.1) 07/26/24 Chloride 110 mmol/L (96-108) H 07/26/24 Carbon Dioxide 22 mmol/L (22-29) 07/26/24 BUN 32 mg/dL (9-16) H 07/26/24 Creatinine 1.32 mg/dL (0.5-1.4) 07/26/24 Calcium 9.8 mg/dL (8.4-10.2) 01/26/24 Urine Creatinine 177.98 mg/dL 09/23/23 Protein/Creatinin Ratio 0.31 (<0.2) H 09/23/23 Assessment & Plan Assessment & Plan (1) Hyperuricemia: Code(s): E79.0 - Hyperuricemia without signs of inflammatory arthritis and tophaceous disease Category: Medical (2) History of renal cell cancer: Code(s): Z85.528 - Personal history of other malignant neoplasm of kidney Category: Medical (3) Essential (primary) hypertension: Code(s): I10 - Essential (primary) hypertension Category: Medical (4) Acquired solitary kidney: Code(s): Z90.5 - Acquired absence of kidney Category: Medical (5) CKD (chronic kidney disease) stage 3, GFR 30-59 ml/min: Code(s): N18.30 - Chronic kidney disease, stage 3 unspecified Category: Medical Qualifiers: Chronic kidney disease stage 3 subtype: stage 3a (GFR 45-59) Qualified Code(s): N18.31 - Chronic kidney disease, stage 3a Plan Franky had stable renal function for long time. He follows up with Urology very closely. He should continue his current dose of allopurinol. He has not had any gout exacerbations on Allopurinol. He should avoid nonsteroidal i nflammatory medications and cut back on sodium in the diet. His blood pressure has been at goal at home. I encouraged to continue to monitoring blood pressure at home. He should maintain good hydration and avoid nonsteroidal anti- inflammatories.I did not make any other medication changes today. Follow-up blood work ordered. Answered all questions Orders: Orders Creatinine 4 Months E79.0 - Hyperuricemia without signs of inflammatory arthritis and tophaceous disease, I10 - Essential (primary) hypertension, N18.31 - Chronic kidney disease, stage 3a, Z85.528 - Personal history of other malignant neoplasm of kidney, Z90.5 - Acquired absence of kidney Parathyroid Hormone Intact 4 Months E79.0 - Hyperuricemia without signs of inflammatory arthritis and tophaceous disease, I10 - Essential (primary) hypertension, N18.31 - Chronic kidney disease, stage 3a, Z85.528 - Personal history of other malignant neoplasm of kidney, Z90.5 - Acquired absence of kidney Complete Blood Count Auto Diff 4 Months E79.0 - Hyperuricemia without signs of inflammatory arthritis and tophaceous disease, I10 - Essential (primary) hypertension, N18.31 - Chronic kidney disease, stage 3a, Z85.528 - Personal history of other malignant neoplasm of kidney, Z90.5 - Acquired absence of kidney Blood Urea Nitrogen 4 Months E79.0 - Hyperuricemia without signs of inflammatory arthritis and tophaceous disease, I10 - Essential (primary) hypertension, N18.31 - Chronic kidney disease, stage 3a, Z85.528 - Personal history of other malignant neoplasm of kidney, Z90.5 - Acquired absence of kidney Electrolytes 4 Months E79.0 - Hyperuricemia without signs of inflammatory arthritis and tophaceous disease, I10 - Essential (primary) hypertension, N18.31 - Chronic kidney disease, stage 3a, Z85.528 - Personal history of other malignant neoplasm of kidney, Z90.5 - Acquired absence of kidney Calcium 4 Months E79.0 - Hyperuricemia without signs of inflammatory arthritis and tophaceous disease, I10 - Essential (primary) hypertension, N18.31 - Chronic kidney disease, stage 3a, Z85.528 - Personal history of other malignant neoplasm of kidney, Z90.5 - Acquired absence of kidney Vitamin D 25-OH Total 4 Months E79.0 - Hyperuricemia without signs of inflammatory arthritis and tophaceous disease, I10 - Essential (primary) hypertension, N18.31 - Chronic kidney disease, stage 3a, Z85.528 - Personal history of other malignant neoplasm of kidney, Z90.5 - Acquired absence of kidney Phosphorus 4 Months E79.0 - Hyperuricemia without signs of inflammatory arthritis and tophaceous disease, I10 - Essential (primary) hypertension, N18.31 - Chronic kidney disease, stage 3a, Z85.528 - Personal history of other malignant neoplasm of kidney, Z90.5 - Acquired absence of kidney Coding Level of Care Code Est Pt Level 4 (13275) Diagnoses Hyperuricemia E79.0 History of renal cell cancer Z85.528 Essential (primary) hypertension I10 Acquired solitary kidney Z90.5 Stage 3a chronic kidney disease N18.31 Chronic kidney disease stage 3 subtype: stage 3a (GFR 45-59)
[2024-07-28 11:06] VITALS: BP 124/60; PULSE 77; O2SAT 98; BMI 28.5
--- OUTSIDE RECORDS SUMMARY | 2024-07-28 13:10 | XMS_ITS | Clinical Summary ---
Author Organization [facility] Address [address] [id number] Care Team Providers Care Rocket Test Fire Worker Name Role Phone Vahid Mcclellan MD [...] age to complete this topic Care Teams Rocket Test Fire Worker Relationship Specialty Start Date End Date Vahid Mcclellan MD PCP - General Internal Medicine 03/27/23
--- OUTSIDE RECORDS SUMMARY | 2024-07-28 13:10 | XMS_ITS | Encounter Summary ---
Author Organization [facility] Address [address] [place] [address] Phone Care Team Providers Care Supervisor Blueprinting And Photocopy Name Role Phone Vahid Mcclellan MD Primary Care Provider Encounter Details Date Type Department Care Team (Late st Contact Info) Description 11/05/2021 Telephone [facility] [address] [place] [phone] Rivera Murray MD Social History Tobacco Use [...] should be done next. Please advise CB# [phone] documented in this encounter Plan of Treatment Not on file documented as of this encounter Visit Diagnoses Not on filedocumented in this encounter Care Teams Supervisor Blueprinting And Photocopy Relationship Specialty Start Date End Date Vahid Mcclellan MD [address] [place] [address] PCP - General 06/11/20 documented as of this encounter
--- OUTSIDE RECORDS SUMMARY | 2024-07-28 13:10 | XMS_ITS | Encounter Summary ---
Author Organization [facility] [place] [address] Care Team Providers Care Rail Gang Supervisor Name Role Phone Vahid Mcclellan MD Primary Care Provider [phone] Reason for Visit * Auth/Cert (Routine) Specialty Diagnoses / Procedures Referred By Contac t Referred To Contact Diagnoses SOB (shortness of breath) VT (ventricular tachycardia) (CMS/HCC) SSS (sick sinus syndrome) (CMS/HCC) SSS Procedures SC INSERTION NEW/REPLACEMENT PPM W/TRANSVENOUS ELECTRODE ATRIAL&VENTRICULAR Insert PPM dual chamber Howard Saavedra MD [address] [address] Phone: tel: fax: [facility] Monitor [address] [place] [address] Phone: tel: Referral ID Status Reason Start Date Expiration Date Visits Re quested Visits Authorized [id number] 1 1 Encounter Details Date Type Department Care Team (Latest Contact Info) Description 07/08/2024 9:21 AM EST - 07/08/2024 11:59 PM EST Hospital Encounter [facility] [address] [place] [address] Howard Saavedra MD [address] [address] SOB (shortness of breath); VT (ventricular tachycardia) ([facility]); SSS (sick sinus syndrome) ([facility]) Discharge Disposition: Home or Self [...] through Care Everywhere. * Biventricular Pacemaker: Post-op (Maori) * Sedation (Maori) documented in this encounter Medications at Time of Discharge albuterol HFA (Ventolin HFA) 90 mcg/actuation inhaler Inhale 2 Puffs into the lungs every 4 hours as needed. - Inhalation albuterol HFA (Ventolin HFA) 90 mcg/actuation inhaler Inhale 2 puffs by mouth every 6 (six) hours if needed for wheezing. 6.7 g 11 06/17/2024 allopurinoL (ZYLOPRIM) 100 mg tablet Take 1 tablet (100 mg total) by mouth 1 (one) time each day. 04/26/2018 apixaban (Eliquis) 2.5 mg tablet Take 2.5 mg by mouth 2 times daily. 02/19/2024 aspirin 81 mg EC tablet TAKE 1 TABLET BY MOUTH EVERY DAY 90 tablet 1 06/22/2024 budesonide-formo teroL (SYMBICORT) 160-4.5 mcg/actuation inhaler Inhale 2 puffs by mouth 2 (two) times a day. 10/06/2022 ipratropium-albu teroL (DUONEB) 0.5-2.5 mg/3 mL nebulizer solution Inhale 3 mL by mouth every 6 (six) hours if needed (dyspnea). 06/05/2022 leuprolide (LUPRON DEPOT) 22.5 mg syringe kitIndications:a dvanced prostatic carcinoma Inject into the shoulder, thigh, or buttocks 1 (one) time. Every six months per patient, unknown dosage tamsulosin (FLOMAX) 0.4 mg 24 hr capsule Take 2 capsules (0.8 mg total) by mouth at bedtime. 04/15/2022 verapamil SR (CALAN-SR) 240 mg CR tablet [...] SOB (shortness of breath) VT (ventricular tachycardia) ([facility]) SSS (sick sinus syndrome) ([facility]) Plan dual-chamber permanent pacemaker implantation. [...] Care Team (Late st Contact Info) Description 08/02/2024 11:30 AM EST Office Visit [facility] Hematology Oncology [address] [place] [phone] Kathya Boyer DO [address] [place] [address] 08/31/2024 1:00 PM EDT Appointment [facility] CT Scan [address] [place] [phone] 09/09/2024 11:00 AM EDT Office Visit Internal Medicine - [place] [address] [phone] Radha Ledesma PA [address] [address] 09/15/2024 9:20 AM EDT Office Visit [facility] - [facility] [address] [phone] Ting Avila MD [address] [address] 10/21/2024 1:00 PM EDT Office Visit Pulmonolgy - [place] [address] [phone] Aishwarya Chapa MD [address] [address] 07/27/2025 2:00 PM EST Ancillary Procedure [facility] Cardiology [facility] - [facility] [address] [phone] documented as of this encounter Procedures Procedure Name Priority Date/Time Associated Diagnosis Comments ECG 12-LEAD Routine 07/08/2024 3:21 PM EST XR CHEST 1 VIEW STAT 07/08/2024 2:59 PM EST ELECTROPHYSIOLOGY PROCEDURE Routine 07/08/2024 1:47 PM EST SOB (shortness of breath) VT (ventricular tachycardia) ([facility]) SSS (sick sinus syndrome) ([facility]) documented in this encounter Results * ECG 12 lead PRN (07/08/2024 3:21 PM EST) Ventricular Rate ECG 80 BPM GEMUSE Atrial Rate 80 BPM GEMUSE P-R Interval 174 ms GEMUSE QRS Duration 152 ms GEMUSE Q-T Interval 432 ms GEMUSE QTc 498 ms GEMUSE R [place] 136 degrees GEMUSE T [place] -113 degrees GEMUSE ECG Interpretation Atrial-sensed ventricular-pa [...] Signed Date: 07/08/2024 15:12 ET Workstation ID: [id number] Transcribed By: Self Edit Transcribed Date: 07/08/2024 [...] Signed Date: 07/08/2024 15:12 ET Workstation ID: [id number] Transcribed By: Self Edit Transcribed Date: 07/08/2024 [...] axillary vein twice. I placed a 7 [place]ovan sheath over the guidewire and placed an atrial lead down to the atrial appendage was actively fixed into place. Through the second access I placed a 9 [place] sheath through which I advanced a C315 [...] number W1 DR 01 serial number [id number] Right atrial lead: Medtronic model 4076 capture fix Novus serial number [id number], capture threshold not determined due to atrial flutter, lead impedance 665 ohms, flutter wave R wave 1.1 mV. Right ventricular lead Medtronic model 3830 select secure serial number [id number], capture threshold 0.5 V at 0.4 ms, [...] Drew Hui RN)1307 (Given - Provider: Gissel Orozco RN) documented in this encounter Orders Medications Ordered [...] 07/08/2024 documented in this encounter Care Teams Rail Gang Supervisor Relationship Specialty Start Date End Date Vahid Mcclellan MD [address] [place] [address] PCP - General 03/27/23 documented as of this encounter
--- OUTSIDE RECORDS SUMMARY | 2024-07-28 13:10 | XMS_ITS | Encounter Summary ---
Author Organization [facility] Address [address] [place] [address] Phone Care Team Providers Care Inside Sales Name Role Phone Vahid Mcclellan MD Primary Care Provider [phone] Encounter Details Date Type Department Care Team (Late st Contact Info) Description 11/12/2021 Telephone [facility] [address] [facility] [address] [place] [address] Rivera Murray MD Social History [...] from 11/07/21. Please call him back at [phone] Thank you documented in this encounter Plan of Treatment Not on file documented as of this encounter Visit Diagnoses Not on filedocumented in this encounter Care Teams Inside Sales Relationship Specialty Start Date End Date Vahid Mcclellan MD [address] [place] [address] PCP - General 06/11/20 documented as of this encounter
--- OUTSIDE RECORDS SUMMARY | 2024-07-28 13:10 | XMS_ITS | Encounter Summary ---
Author Organization [facility] Address [address] [place] [address] Care Team Providers Care Electronic Console Display Operator Name Role Phone Vahid Mcclellan MD Primary Care Provider [phone] Reason for Visit * Auth/Cert (Routine) Specialty Diagnoses / Procedures Referred By Contac t Referred To Contact Diagnoses SOB (shortness of breath) VT (ventricular tachycardia) (CMS/HCC) SSS (sick sinus syndrome) (CMS/HCC) SSS Procedures [place] INSERTION NEW/REPLACEMENT PPM W/TRANSVENOUS ELECTRODE ATRIAL&VENTRICULAR Insert PPM dual chamber Howard Saavedra MD [address] [address] Phone: tel: fax: [facility] Cardiac Gyroscopic Engineering Technician [address] [place] [address] Phone: tel: Referral ID Status Reason Start Date Expiration Date Visits Re quested Visits Authorized [id number] 1 1 Encounter Details Date Type Department Care Team (Late st Contact Info) Description 07/08/2024 11:00 AM EST - 07/08/2024 12:00 PM EST Surgery [facility] Cardiac Gyroscopic Engineering Technician [address] [place] [address] Howard Saavedra MD [address] [address] Insert PPM dual chamber [09490 (CPT??)] Surgery Details Date/Time Status Location OR Service Patient Class Case Class Case Type Trauma Case? 07/08/2024 11:00 AM Posted [facility] Cardiac Gyroscopic Engineering Technician Cath /EP Rm Cardiovascular (Cath/EP) Interventional Procedure [...] through Care Everywhere. * Biventricular Pacemaker: Post-op (Russian) * Sedation (Russian) documented in this encounter Medications at Time [...] SOB (shortness of breath) VT (ventricular tachycardia) ([facility]) SSS (sick sinus syndrome) (CMS/HCC) Plan dual-chamber [...] Description 08/02/2024 11:30 AM EST Office Visit [facility] Hematology Oncology [address] [place] [phone] Kathya Boyer, [address] [place] [address] 08/31/2024 1:00 PM EDT Appointment [facility] CT Scan [address] [place] [phone] 09/09/2024 11:00 AM EDT Office Visit Internal Medicine - [place] [address] [phone] Radha Ledesma PA [address] [address] 09/15/2024 9:20 AM EDT Office Visit [facility] Cardiology [facility] - [facility] [address] [phone] Laure Avila MD [address] [address] 10/21/2024 1:00 PM EDT Office Visit Pulmonolgy - [place] [address] [phone] Aishwarya Chapa MD [address] [address] 07/27/2025 2:00 PM EST Ancillary Procedure [facility] Cardiology [facility] - [facility] 154 300 [facility] 154 [place] [phone] documented as of this encounter Procedures Procedure [...] ms GEMUSE QTc 498 ms GEMUSE R [place] 136 degrees GEMUSE T [place] -113 degrees GEMUSE ECG Interpretation Atrial-sensed ventricular-pa [...] Signed Date: 07/08/2024 15:12 ET Workstation ID: [id number] Transcribed By: Self Edit Transcribed Date: 07/08/2024 [...] Signed Date: 07/08/2024 15:12 ET Workstation ID: [id number] Transcribed By: Self Edit Transcribed Date: 07/08/2024 [...] axillary vein twice. I placed a 7 Tamazight sheath over the guidewire and placed an atrial lead down to the atrial appendage was actively fixed into place. Through the second access I placed a 9 Tamazight sheath through which I advanced a C315 [...] loss no immediate complications. Device implanted: Medtronic Channing XT DR MRI model number W1 DR 01 serial number [id number] Right atrial lead: Medtronic model 4076 capture fix Novus serial number [id number], capture threshold not determined due to atrial flutter, lead impedance 665 ohms, flutter wave R wave 1.1 mV. Right ventricular lead Medtronic model 3830 select secure serial number [id number], capture threshold 0.5 V at 0.4 ms, [...] 07/08/2024 documented in this encounter Care Teams Electronic Console Display Operator Relationship Specialty Start Date End Date Vahid Mcclellan MD [address] [place] [address] PCP - General 03/27/23 documented as of this encounter
--- OUTSIDE RECORDS SUMMARY | 2024-07-28 13:10 | XMS_ITS | Encounter Summary ---
Author Organization [facility] [place] [address] Care Team Providers Care Director Of Distance Learning Name Role Phone Vahid Mcclellan MD Primary Care Provider [phone] Reason for Visit * Consultation (Routine) - Authorized Specialty Diagnoses / Procedures Referred By Contac t Referred To Contact Cardiology Diagnoses Atherosclerotic heart disease of [place] coronary artery without angina pectoris Vahid Mcclellan MD 175 [facility] 200 [place] [address] Phone: tel: fax: [facility] Cardiology [facility] [address] [facility] 154 [place] [address] Phone: tel: fax: Referral ID Status Reason Start Date Expiration Date Visits Requested Visits Authorized [id number] Authorized Specialty Services Required 05/20/2025 6 6 Encounter Details Date Type Department Care Team (Latest Contact Info) Description 07/27/2024 1:00 PM EST Ancillary Procedure [facility] Cardiology [facility] [address] 300 [facility] 154 [place] [address] Encounter for adjustment or management of cardiac device Social History Tobacco Use Types Packs/Day Years [...] Argelia Seay RN documented in this encounter Plan of Treatment Upcoming Encounters Date Type Department Care Team (Late st Contact Info) Description 08/02/2024 11:30 AM EST Office Visit [facility] Hematology Oncology [address] [place] [phone] Kathya Boyer, DO [address] [place] [address] 08/31/2024 1:00 PM EDT Appointment [facility] CT Scan [address] [place] [phone] 09/09/2024 11:00 AM EDT Office Visit Internal Medicine - [place] [address] [phone] Radha Ledesma PA [address] [address] 09/15/2024 9:20 AM EDT Office Visit [facility] Cardiology [facility] - [facility] [address] [phone] Ting Avila MD [address] [address] 10/21/2024 1:00 PM EDT Office Visit Pulmonolgy - [place] [address] [phone] Aishwarya Chapa MD [address] [address] 07/27/2025 2:00 PM EST Ancillary Procedure [facility] [address] 300 [facility] [address] [place] [phone] Pending Results Name Type Priority Associated Diagnoses Date /Time Cardiac device check - In Clinic Implantable Cardiac Device Routine Encounter for adjustment or management of cardiac device 07/27/2024 1:43 PM EST Scheduled Orders Name Type Priority Associated Diagnoses Order Schedule Cardiac device check - In Clinic Implantable Cardiac Device Routine Encounter for adjustment or management of cardiac device 1 Occurrences starting 06/16/2024 until 06/16/2026 documented as of this encounter Visit Diagnoses Diagnosis Encounter for adjustment or management of cardiac device Encounter for adjustment or management of cardiac device documented in this encounter Care Teams Director Of Distance Learning Relationship Specialty Start Date End Date Vahid Mcclellan MD [address] [address] PCP - General 03/27/23 documented as of this encounter
--- OUTSIDE RECORDS SUMMARY | 2024-07-28 13:10 | XMS_ITS | Encounter Summary ---
Author Organization [facility] [address] Care Team Providers Care Manager Field Services Name Role Phone Vahid Mcclellan MD Primary Care Provider [phone] Encounter Details Date Type Department Care Team (Late st Contact Info) Description 03/01/2024 11:18 AM EDT Hospital Encounter TH HISTORIC ENCOUNTERS EASTERN CONVERSION ONLY Kathya Boyer, DO [address] [place] [address] Social History Tobacco Use Types Packs/Day Years [...] 1:09 PM Encounter Date: 03/01/2024 Status: Signed Licensing Coordinator: Kathya Boyer DO (Physician) Hematology/Oncology Follow Up [...] in 10 out of 13 cores highest [place] score 4+5 = 9, grade group 5. 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 And spent several weeks at [facility]. PSA June 2023 went down to [...] Imaging CT Pelvis WO - 11/11/23 - 175 Report Status:Signed CT pelvis without contrast Comparison: [...] MD Dic Date/Time: 11/11/231944 Sign date/Time: 11/11/23 [id number] 0 Assessment & Plan 83 year-old male [...] up Sign: Nuzhat Boyer DO Hematology/Oncology [facility] [phone] CC: Vahid Mcclellan MD Tyson, Adam MD documented in this encounter Plan of Treatment Upcoming Encounters Date Type Department Care Team (Late st Contact Info) Description 08/02/2024 11:30 AM EST Office Visit [facility] Hematology Oncology [address] [place] [phone] Kathya Boyer DO [address] [place] [address] 08/31/2024 1:[address] [facility] CT Scan [address] [place] [address] 09/09/2024 11:00 AM EDT Office Visit Internal Medicine - [place] 175 [facility] 200 [place] [phone] Radha Ledesma PA 175 [facility] [address] [place] [address] 09/15/2024 9:20 AM EDT Office Visit [facility] [address] 300 [facility] [address] [place] [phone] Ting Avila MD 300 [facility] [address] [place] [address] 10/21/2024 1:00 PM EDT Office Visit Pulmonolgy - [place] 175 [facility] 200 [place] [phone] Aishwarya Chapa MD 175 [facility] [address] [place] [address] 07/27/2025 2:00 PM EST Ancillary Procedure [facility] - [facility] 154 300 [facility] 154 [place] [phone] documented as of this encounter Procedures Procedure Name Priority Date/Time Associated Diagnosis Comments ..MISCELLANEOUS REFERENCE LAB TEST 03/01/2024 documented in this encounter Results * Miscellaneous reference lab test (03/01/2024) us Provider Onbase MD LAB BLOOD ORDERABLES Final Re sult documented in this encounter Visit Diagnoses Not on filedocumented in this encounter Care Teams Manager Field Services Relationship Specialty Start Date End Date Vaihd Mcclellan MD 175 [facility] 200 [place] [address] PCP - General 03/27/23 documented as of this encounter
--- OUTSIDE RECORDS SUMMARY | 2024-07-28 13:10 | XMS_ITS | Encounter Summary ---
Author Organization [facility] [place] [address] Care Team Providers Care Resources Representative Name Role Phone Vahid Mcclellan MD Primary Care Provider [phone] Reason for Visit * Reason Onset Date Comments Maryellen CHANG 07/15/2024 Encounter Details Date Type Department Care Team (Late st Contact Info) Description 07/15/2024 Telephone Internal Medicine - [place] [address] [address] Vahid Mcclellan MD 175 [facility] 200 [place] [address] Eleuterio: BERNARDO Social History Tobacco Use Types Packs/Day Years [...] Nannette Owens - 07/15/2024 4:57 PM EST [employer] called and let us know that the patient was 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 documented in this encounter Plan of Treatment Upcoming Encounters Date Type Department Care Team (Late st Contact Info) Description 08/02/2024 11:30 AM EST Office Visit [facility] Hematology Oncology [address] [place] [address] Kathya Boyer, [address] [place] [address] 08/31/2024 1:00 PM EDT Appointment [facility] CT Scan [address] [place] [phone] 09/09/2024 11:00 AM EDT Office Visit Internal Medicine - [place] [address] [phone] Radha Ledesma PA [address] [address] 09/15/2024 9:20 AM EDT Office Visit [facility] Cardiology [facility] [address] [phone] Ting Avila MD [address] [address] 10/21/2024 1:00 PM EDT Office Visit Pulmonolgy - [place] [address] [phone] Aishwarya Chapa MD [address] [address] 07/27/2025 2:00 PM EST Ancillary Procedure [facility] [address] [phone] documented as of this encounter Visit Diagnoses Not on filedocumented in this encounter Care Teams Resources Representative Relationship Specialty Start Date End Date Vahid Mcclellan MD [address] [address] PCP - General 03/27/23 documented as of this encounter
--- OUTSIDE RECORDS SUMMARY | 2024-07-28 13:10 | XMS_ITS | Encounter Summary ---
Author Organization [facility] [place] [address] Care Team Providers Care Trackmobile Operator Name Role Phone Vahid Mcclellan MD Primary Care Provider [phone] Reason for Visit * Reason Onset Date Comments Referral 06/06/2024 Request for insu latoya referral, [facility] Encounter Details Date Type Department Care Team ([facility] st Contact Info) Description 06/06/2024 Telephone Internal Medicine - [place] 175 [facility] [address] [place] [phone] Vahid Mcclellan MD 175 [facility] [place] 200 [place], [place] [phone] Referral (Request for insurance referral, [facility]) Social History Tobacco Use Types Packs/Day [...] for an insurance referral Caller: Inga Office: [facility] Insurance: [facility] ID: [id number] Provider: Meir Matias DOS: 06/10/24 Visits: 6 Dx code: H35.3211 IMPORTANT Pls copy and paste this into the order. Otherwise, it will not be processed as an ins referral documented in this encounter Plan of Treatment Upcoming Encounters Date Type Department Care Team (Late st Contact Info) Description 08/02/2024 11:30 AM EST Office Visit [facility] Hematology Oncology [address] [place] [phone] Kathya Boyer, [address] [place] [address] 08/31/2024 1:00 PM EDT Appointment [facility] CT Scan [address] [place] [phone] 09/09/2024 11:00 AM EDT Office Visit Internal Medicine - [place] [address] [phone] Radha Ledesma PA [address] [address] 09/15/2024 9:20 AM EDT Office Visit [facility] Cardiology [facility] [address] [phone] Ting Avila MD [address] [address] 10/21/2024 1:00 PM EDT Office Visit Pulmonolgy - [place] [address] [phone] Aishawrya Chapa MD [address] [address] 07/27/2025 2:00 PM EST Ancillary Procedure [facility] Cardiology [facility] [address] [phone] documented as of this encounter Visit Diagnoses Not on filedocumented in this encounter Care Teams Trackmobile Operator Relationship Specialty Start Date End Date Vahid Mcclellan MD [address] [address] PCP - General 03/27/23 documented as of this encounter
--- OUTSIDE RECORDS SUMMARY | 2024-07-28 13:10 | XMS_ITS | Clinical Summary ---
Author Organization [address] [place] [address] [place] [phone] Phone Care Team Providers Care Hearing Aid Technician Name Role Phone Vahid Mcclellan MD Primary Care Provider [phone] Allergies No known active allergies Medications budesonide-for moteroL (SYMBICORT) 160-4.5 mcg/actuation inhaler Inhale 2 puffs by mouth 2 (two) times a day. 10/07/19 23 Active ipratropium-al buteroL (DUONEB) 0.5-2.5 mg/3 mL nebulizer solution Inhale 3 mL by mouth every 6 (six) hours if needed (dyspnea). 06/05/19 23 Active tamsulosin (FLOMAX) 0.4 mg 24 hr capsule Take 2 capsules (0.8 mg total) by mouth at bedtime. 04/15/20 22 Active allopurinoL (ZYLOPRIM) 100 mg tablet Take 1 tablet (100 mg total) by mouth 1 (one) time each day. 04/26/20 18 Active apixaban (Eliquis) 2.5 mg tablet Take 2.5 mg by mouth 2 times daily. 02/19/20 24 Active albuterol HFA (Ventolin HFA) 90 mcg/actuation inhaler Inhale 2 Puffs into the lungs every 4 hours as needed. - Inhalation Active albuterol HFA (Ventolin HFA) 90 mcg/actuation inhaler Inhale 2 puffs by mouth every 6 (six) hours if needed for wheezing. 6.7 g 11 06/17/19 25 2025 Active aspirin 81 mg EC tablet TAKE 1 TABLET BY MOUTH EVERY DAY 90 tablet 1 06/22/19 25 Active leuprolide (LUPRON DEPOT) 22.5 mg syringe kitIndications :advanced prostatic carcinoma Inject into the shoulder, thigh, or buttocks 1 (one) time. Every six months per patient, unknown dosage Active verapamil SR (CALAN-SR) 240 mg CR tablet Take 1 tablet (240 mg total) by mouth at bedtime. Do not crush or chew. 90 each 3 07/08/19 25 Active atorvastatin (LIPITOR) 40 mg tablet TAKE 1 TABLET BY MOUTH EVERYDAY AT BEDTIME 90 tablet 1 07/25/19 25 Active sertraline (ZOLOFT) 25 mg tabletIndicati ons:Anxiety disorder, unspecified TAKE 1 TABLET BY MOUTH EVERY DAY 90 tablet 1 07/25/19 25 Active atorvastatin (LIPITOR) 40 mg tablet Take 1 tablet (40 mg total) by mouth 1 (one) time each day. 2024 Discontinued tiotropium (Spiriva with HandiHaler) 18 mcg per inhalation capsule Place 1 capsule (18 mcg total) into inhaler and inhale 1 (one) time each day. Inhale one capsule into the lungs daily. Inhale the contents of one capsule through the Spiriva device every AM 10/07/192024 Discontinued albuterol 2.5 mg /3 mL (0.083 %) nebulizer solution Take 3 mL by nebulization every 4 (four) hours if needed for wheezing or shortness of breath (cough). 03/27/202024 Discontinued sertraline (ZOLOFT) 25 mg tablet Take 1 tablet (25 mg total) by mouth 1 (one) time each day. 03/03/20 24 2024 Discontinued magnesium amino acid chelate (mag amino acid chelate, bulk,) 20 % powder TAKE 1 TABLET (133 MG TOTAL) BY MOUTH 2 (TWO) TIMES A DAY. 60 g 11 05/10/20 24 2024 Discontinued fluticasone furoate-vilant Capri (Breo Ellipta) 200-25 mcg/dose inhaler Inhale 1 puff by mouth 1 (one) time each day. 1 each 4 06/17/19 25 2024 Discontinued amLODIPine (NORVASC) 10 mg tablet TAKE 1 TABLET BY MOUTH EVERY DAY 90 tablet 1 06/22/19 25 2024 Discontinued(S top Taking at Discharge) Active Problems Problem Noted Date Diagnosed Date [...] CKD (chronic kidney disease), stage III 10/02/19 Overview (07/27/2023): Comments: felisha Bailey Lung nodule 10/01/2017 Overview (07/27/2023): Comments: CT 10/28/17 essentially stable subcentimeter pulmonary nodules when compared to 2016 & 2017 Tubular adenoma 12/03/2016 Diverticulosis of colon 04/30/2016 Resolved Problems Problem Noted Date Diagnosed Date Resolved Date Chest pain, unspecified type 05/08/2024 05/09/2024 Chest pain 05/07/2024 05/09/2024 Chronic atrial fibrillation 04/25/2024 05/20/2024 Encounters Date Type Department Care Team Description 07/27/2024 1:00 PM EST Ancillary Procedure [facility] - [address] [facility] [address] [place] [phone] Encounter for adjustment or management of cardiac device 07/26/2024 Telephone Internal Medicine [facility] [address] [phone] Ivy Connolly [place] Request For Order(s) ([facility] Maria Stein Discharge Assessment /) 07/19/2024 Telephone [facility] Cardiology [facility] - [facility] [address] [facility] 154 [place] [address] Laure Avila MD 07/15/2024 Telephone Internal Medicine [facility] [address] [phone] Vahid Mcclellan MD Joseph: BERNARDO 07/08/2024 11:00 AM EST - 07/08/2024 12:00 PM EST Surgery [facility] Cardiac Formulation Chemist [address] [place] [phone] Howard Saavedra MD Insert PPM dual chamber [[id number] (CPT??)] 07/08/2024 9:21 AM EST - 07/08/2024 11:59 PM EST Hospital Encounter [facility] Cardiac Formulation Chemist [address] [place] [address] Howard Saavedra MD SOB (shortness of breath); VT (ventricular tachycardia) (CMS/HCC); SSS (sick sinus syndrome) (CMS/HCC) Discharge Disposition: Home or Self Care 06/23/2024 Telephone Internal Medicine [facility] [address] [phone] Ivy Connolly [place] Request For Order(s) ([facility] Cert 05/24/24-07/22/24 Plan Of Care /) 06/23/2024 Telephone Internal Medicine - [address] [phone] Ivy Connolly [place] Request For Order(s) ([facility] Orders 05/17/24 /) 06/17/2024 1:30 PM EST Office Visit Pulmonolgy - [address] [phone] Aishwarya Chapa MD Lung nodules (Primary Dx); Chronic obstructive pulmonary disease, unspecified COPD type (CMS/HCC); Hospital discharge follow-up; Atrial fibrillation, unspecified type (CMS/HCC); NAKIA (obstructive sleep apnea) 06/16/2024 Telephone [facility] Cardiology [facility] - [facility] [address] [facility] 154 [place] [phone] Howard Saavedra MD Procedure (Primary Dual Pacemaker 2.7.25) 06/06/2024 Telephone Internal Medicine [address] [phone] Vahid Mcclellan MD Referral (Request for insurance referral, [facility]) 05/27/2024 12:45 PM EST Office Visit Internal Medicine [address] [phone] Vahid Mcclellan MD Hospital discharge follow-up (Primary Dx); Chronic obstructive pulmonary disease, unspecified COPD type (CMS/HCC); VT (ventricular tachycardia) (CMS/HCC); Chest pain, unspecified type; Skin lesion of face; Normocytic anemia 05/20/2024 8:50 AM EST Office Visit [facility] Cardiology [facility] - [facility] [address] [facility] 154 [place] [phone] Laure Avila MD Anemia, unspecified type (Primary Dx); Atherosclerotic heart disease of [place] coronary artery without angina pectoris; Chest discomfort; SOB (shortness of breath); VT (ventricular tachycardia) (CMS/HCC); SSS (sick sinus syndrome) (CMS/HCC) 05/20/2024 Telephone Internal Medicine - [place] 175 [facility] [address] [place] [phone] Vahid Mcclellan MD vna 05/20/2024 Telephone Internal Medicine - [place] 175 [facility] [address] [place] [phone] Vahid Mcclellan MD Hospital Follow-up 05/10/2024 Telephone [facility] Cardiology [facility] - [facility] [address] [facility] [address] [place] [phone] Laure Avila MD Hospital Follow-up (Hospital follow up care) 05/07/2024 3:03 PM EST - 05/09/2024 5:49 PM EST Hospital Encounter [facility] Intermediate Care Unit [address] [place] [phone] Crissy Stevens MD Jones, Christopher, MD Bell, Alistair A, MD Kokosadze, Estate, MD Chest pain, unspecified type (Primary Dx); Other forms of angina pectoris (CMS/HCC) Discharge Disposition: Home or Self Care 05/07/2024 Telephone [facility] Cardiology [address] [place] [phone] Amber Lemus NP 05/06/2024 Telephone [facility] - [facility] [address] [place] [phone] Laure Avila MD 05/04/2024 11:00 AM EST Office Visit Internal Medicine [facility] 175 [facility] [address] [place] [phone] Radha Ledesma PA Primary hypertension (Primary Dx); Paroxysmal atrial fibrillation (CMS/HCC); Chronic obstructive pulmonary disease, unspecified COPD type (CMS/HCC); Pure hypercholesterolemia ; Benign prostatic hyperplasia, unspecified whether lower urinary tract symptoms present from Last 3 Months Immunizations Name Administration Dates Next Due Influenza Quadravalent, MDCK , 0.5ml, preservative free (Flucelvax) 6mo and older 05/02/2019 Influenza trivalent, 0.5mL ( Fluzone High-dose) 65yo and older 03/07/2022,03/15/2018 Pfizer SARS-CoV-2 COVID-19, mRNA, LNP-S, preservative free 08/04/2020,07/14/2020 Pneumococcal conjugate 13 va lent (Prevnar 13, PCV13) 2mo and older 03/27/2015 Pneumococcal polysaccharide 23 valent (Pneumovax 23) 2yo and older 07/08/2011 Surgical History Surgery Date Site/Laterality Comments NEPHRECTOMY Right PROCEDURE: HISTORICAL NEPHRECTOMY; COMMENT: R radical nephrectomy 05/30/15 Dr. Lindsay. Pathology negative margins f/u nephro Dr. Bailey EYE SURGERY Bilateral PROCEDURE: HISTORICAL EYE SURGERY; COMMENT: right November 2022, left October 2022 Dr. Owen Medical History Medical History Date Comments Colon polyp 04/19/2018 DX:Colon polyp Chronic obstructive pulmonar y disease (CMS/HCC) 01/07/2018 DX:Chronic obstructive pulmo nary disease (HCC) CKD (chronic kidney disease) , stage III (CMS/HCC) 10/01/2017 DX:CKD (chronic kidney disea se), stage III (HCC); COMMENT: Comments: nephro Dr. Bailey Diverticulosis of colon 04/30/2016 DX:Diver ticulosis of colon Gout 10/01/2017 DX:Gout History of kidney cancer 04/30/2016 DX:Hist ory of kidney cancer; COMMENT: Comments: S/p right radical nephrectomy 05/30/15. Pathology negative margins f/u felisha Bailey Hyperlipidemia 01/07/2018 DX:Hyperlipidemi a Hypertension 01/07/2018 DX:Hypertension Lung nodule 10/01/2017 DX:Lung nodule; COMMENT: Comments: CT 10/28/17 essentially stable subcentimeter pulmonary nodules when compared to 2016 & 2017 Tubular adenoma 12/03/2016 DX:Tubular adeno ma Leg cramping 01/07/2018 DX:Leg cramping Family History Medical History Relation Name Comments Melanoma Son Prostate cancer Son Relation Name Status Comments Son Alive Social History Tobacco Use Types Packs/Day Years Used Date Smoking Tobacco: Former Cigarettes 2 37 0 10/26/1962 - 10/27/1999 Smokeless Tobacco: Never Tobacco Cessation:Counseling Given: Not [...] Orientation Straight 07/04/2024 3: 07 PM EST Obstetrics History Last Filed Vital Signs Vital Sign Reading [...] Mass Index 27.62 07/08/2024 9:52 AM EST Plan of Treatment Upcoming Encounters Date Type Department Care Team (Late st Contact Info) Description 08/02/2024 11:30 AM EST Office Visit [facility] Hematology Oncology [address] [place] [phone] Kathya Boyer, DO [address] [place] [address] 08/31/2024 1:00 PM EDT Appointment [facility] CT Scan [address] [place] [phone] 09/09/2024 11:00 AM EDT Office Visit Internal Medicine - [place] 175 [facility] 200 [place] [phone] Radha Ledesma PA 175 [facility] 200 [place] [address] 09/15/2024 9:20 AM EDT Office Visit [facility] - [facility] [address] [facility] 154 [place] [phone] Laure Avila MD [address] [facility] 154 [place] [address] 10/21/2024 1:00 PM EDT Office Visit Pulmonolgy - [place] 175 [facility] 200 [place] [phone] Aishwarya Chapa MD 175 [facility] 200 [place] [address] 07/27/2025 2:00 PM EST Ancillary Procedure [facility] - [facility] [address] [facility] 154 [place] [phone] Health Maintenance Due Date Last Done Comments DTaP,Tdap,and Td Vaccines (1 - Tdap) 10/24/1958 Zoster Vaccines (1 of 2) 10/24/1958 RSV Immunization Patients 60+ Years Old (1 - 1-dose 75+ series) 10/24/2014 Depression Screening 05/03/2022 Medicare Annual Wellness Visit 05/03/2022 Social Influencers of Health Screening 05/03/2022 COVID-19 Vaccine ( season) 2024 03/20/2021, 08/04/2020, 07/14/2020 Falls Risk Assessment 05/09/2025 05/09/2024 Hypertension/CHF/CAD Annual BMP Blood Test 06/27/2025 06/27/2024, 05/20/2024, 05/09/2024, Additional history exists Cholesterol Screening (Lipid Panel) 05/08/2029 05/08/2024, 10/30/2023, 10/30/2023, Additional history exists Pneumococcal Vaccine: 50+ Years Completed 04/01/2016, 03/27/2015, 07/08/2011 Influenza Vaccine Completed 06/17/2024, , 06/03/2021, Additional history exists HIB Vaccines Aged Out No longer eligi ble based on patient's age to complete this topic HPV Vaccines Aged Out No longer eligi ble based on patient's age to complete this topic Hepatitis A Vaccines Aged Out No long er eligible based on patient's age to complete this topic Hepatitis B Vaccines Aged Out No long er eligible based on patient's age to complete this topic IPV Vaccines Aged Out No longer eligi ble based on patient's age to complete this topic MMR Vaccines Aged Out No longer eligi ble based on patient's age to complete this topic Meningococcal ACWY Vaccine Aged Out N o longer eligible based on patient's age to complete this topic Meningococcal B Vacine Aged Out No lo nger eligible based on patient's age to complete this topic RSV Immunization Patients Under 20 months Aged Out No longer eligible based on patient's age to complete this topic Varicella Vaccines Aged Out No longer eligible based on patient's age to complete this topic Medical Devices Implanted Type Area Weigher And Mixer Device Identifier Shelf Expiration Date Model / Serial / Lot Lead Pcmkr Capsure Novus 52cm - [id number] - [id number] Implanted:Qty: 1 on 07/08/2024 by Howard Saavedra MD at [facility] Cardiac Lead N/A: Heart [employer] - CARDIAC [facility] [id number] 08/05/2025 [id number] / [id number] / Lead Ipg Select Secure 69cm Catheter Delivered Lead - [id number] - [id number] Implanted:Qty: 1 on 07/08/2024 by Howard Saavedra MD at [facility] Cardiac Lead N/A: Heart [employer] [facility] [id number] 02/04/2026 [id number] / [id number] / Pacemaker Cardiac [place] Xt Dr Espinosa - [id number] - [id number] Implanted:Qty: 1 on 07/08/2024 by Howard Saavedra MD at [facility] Cardiac Pacemaker Left: Chest Wall [employer] - CARDIAC [facility] [id number] 07/29/2025 [id number] / [id number] / Procedures Procedure Name Priority Date/Time Associated Diagnosis Comments ECG 12-LEAD Routine 07/08/2024 3:21 PM EST XR CHEST 1 VIEW STAT 07/08/2024 2:59 PM EST ELECTROPHYSIOLOGY PROCEDURE Routine 07/08/2024 1:47 PM EST SOB (shortness of breath) VT (ventricular tachycardia) (CMS/HCC) SSS (sick sinus syndrome) (CMS/HCC) CBC WITH AUTO DIFFERENTIAL Routine 06/27/2024 10:29 AM EST SSS (sick sinus syndrome) (CMS/HCC) PROTHROMBIN TIME WITH INR Routine 2024 10:29 AM EST SSS (sick sinus syndrome) (CMS/HCC) BASIC METABOLIC PANEL Routine 06/27/2024 10:29 AM EST SSS (sick sinus syndrome) (CMS/HCC) CBC AND DIFFERENTIAL Routine 06/27/2024 10:29 AM EST SSS (sick sinus syndrome) (CMS/HCC) CBC WITH AUTO DIFFERENTIAL Routine 05/20/2024 9:38 AM EST Anemia, unspecified type CBC AND DIFFERENTIAL Routine 05/20/2024 9:38 AM EST Anemia, unspecified type BASIC METABOLIC PANEL Routine 05/20/2024 9:38 AM EST Palpitations NM LEXISCAN STRESS TEST W/ MYOCARDIAL PERFUSION Routine 05/09/2024 1:20 PM EST Other forms of angina pectoris (CMS/HCC) MAGNESIUM Routine 05/09/2024 6:23 AM EST BASIC METABOLIC PANEL Routine 05/09/2024 6:23 AM EST COMPLETE BLOOD COUNT Routine 05/09/2024 6:23 AM EST POCT GLUCOSE BLOOD Routine 05/08/2024 7: 43 AM EST POCT GLUCOSE BLOOD Routine 05/08/2024 6: 28 AM EST CBC WITH AUTO DIFFERENTIAL Routine 05/08/2024 5:28 AM EST LIPID PANEL WITH REFLEX TO DIRECT LDL Routine 05/08/2024 5:28 AM EST TROPONIN I HIGH SENSITIVITY Routine 05/08/2024 5:28 AM EST CBC AND DIFFERENTIAL Routine 05/08/2024 5:28 AM EST BASIC METABOLIC PANEL Routine 05/08/2024 5:28 AM EST ECG 12-LEAD STAT 05/08/2024 5:20 AM EST POCT GLUCOSE BLOOD Routine 05/08/2024 12 :[address] CHEST WO CONTRAST STAT 05/07/2024 7:50 PM EST TROPONIN I HIGH SENSITIVITY STAT 05/07/2024 4:37 PM EST ECG 12-LEAD STAT 05/07/2024 4:28 PM EST XR CHEST 2 VIEWS STAT 05/07/2024 4:25 PM EST HEMOGLOBIN A1C Add-On 05/07/2024 3:31 PM EST PROTHROMBIN TIME WITH INR STAT 2023 3:31 PM EST CBC WITH AUTO DIFFERENTIAL STAT 05/07/2024 3:31 PM EST B-TYPE NATRIURETIC PEPTIDE STAT 05/07/2024 3:31 PM EST MAGNESIUM STAT 05/07/2024 3:31 PM EST LIPASE STAT 05/07/2024 3:31 PM EST COMPREHENSIVE METABOLIC PANEL STAT 05/07/2024 3:31 PM EST CBC AND DIFFERENTIAL STAT 05/07/2024 3:31 PM EST TROPONIN I HIGH SENSITIVITY STAT 05/07/2024 3:31 PM EST ECG 12-LEAD STAT 05/07/2024 3:18 PM EST from Last 3 Months Results * ECG 12 lead PRN (07/08/2024 3:21 PM EST) Only the most recent of4 resultswithin the time period is included. Ventricular Rate ECG 80 BPM GEMUSE Atrial Rate 80 BPM GEMUSE P-R Interval 174 ms GEMUSE QRS Duration 152 ms GEMUSE Q-T Interval 432 ms GEMUSE QTc 498 ms GEMUSE R [place] 136 degrees GEMUSE T [place] -113 degrees GEMUSE ECG Interpretation Atrial-sensed ventricular-pa [...] Signed Date: 07/08/2024 15:12 ET Workstation ID: [id number] Transcribed By: Self Edit Transcribed Date: 07/08/2024 [...] Signed Date: 07/08/2024 15:12 ET Workstation ID: [id number] Transcribed By: Self Edit Transcribed Date: 07/08/2024 [...] axillary vein twice. I placed a 7 Mexican sheath over the guidewire and placed an atrial lead down to the atrial appendage was actively fixed into place. Through the second access I placed a 9 Mexican sheath through which I advanced a [id number] [...] loss no immediate complications. Device implanted: Medtronic [place] XT DR MRI model number W1 DR 01 serial number [id number] Right atrial lead: Medtronic model 4076 capture fix Novus serial number [id number], capture threshold not determined due to atrial flutter, lead impedance 665 ohms, flutter wave R wave 1.1 mV. Right ventricular lead Medtronic model 3830 select secure serial number [id number], capture threshold 0.5 V at 0.4 ms, impedance 741 ohms, R wave 18.1 mV. Ivy LOZANO CV ELECTROPHYSIOLOGY PROCEDURES Final Result * (ABNORMAL) CBC auto differential (06/27/2024 10:29 AM EST) Only the most recent of4 resultswithin the time period is included. [facility] WBC 5.4 4.8 - 10.8 K/mcL LAB HEMETOLOGY METHOD 06/27/2024 2:53 PM [facility] RBC 3.80(L) 4.50 - 5.50 M/mcL LAB HEMETOLOGY METHOD 06/27/2024 2:53 PM [facility] Hemoglobin 11.4(L) 13.5 - 17.5 g/dL LAB HEMETOLOGY METHOD 06/27/2024 2:53 PM [facility] Hematocrit 37.3(L) 42.0 - 54.0 % LAB HEMETOLOGY METHOD 06/27/2024 2:53 PM [facility] MCV 99.5(H) 79.0 - 98.0 FL LAB HEMETOLOGY METHOD 06/27/2024 2:53 PM [facility] MCH 30.4 27.0 - 32.0 pcg LAB HEMETOLOGY METHOD 06/27/2024 2:53 PM [facility] MCHC 30.6(L) 32.0 - 37.0 g/dL LAB HEMETOLOGY METHOD 06/27/2024 2:53 PM [facility] RDW 13.3 11.0 - 15.0 % LAB HEMETOLOGY METHOD 06/27/2024 2:53 PM [facility] Platelets 202 130 - 400 K/mcL LAB HEMETOLOGY METHOD 06/27/2024 2:53 PM [facility] MPV 10.3 7.0 - 11.0 FL LAB HEMETOLOGY METHOD 06/27/2024 2:53 PM [facility] NRBC 0.0 <1.0 % LAB HEMETOLOGY METHOD 06/27/2024 2:53 PM [facility] NRBC Absolute 0.00 <0.10 K/mcL LAB HEMETOLOGY METHOD 06/27/2024 2:53 PM [facility] Neutrophils Relative 67.5 % LAB HEMETOLOGY METHOD 06/27/2024 2:53 PM [facility] Lymphocytes Relative 18.0 % LAB HEMETOLOGY METHOD 06/27/2024 2:53 PM [facility] Monocytes Relative 12.1 % LAB HEMETOLOGY METHOD 06/27/2024 2:53 PM [facility] Eosinophils Relative 1.3 % LAB HEMETOLOGY METHOD 06/27/2024 2:53 PM [facility] Basophils Relative 0.4 % LAB HEMETOLOGY METHOD 06/27/2024 2:53 PM EST [facility] Immature Granulocytes Relative 0.7 % LAB HEMETOLOGY METHOD 06/27/2024 2:53 PM EST [facility] Neutrophils Absolute 3.63 1.50 - 7.00 K/mcL LAB HEMETOLOGY METHOD 06/27/2024 2:53 PM [facility] Lymphocytes Absolute 0.97(L) 1.00 - 5.00 K/mcL LAB HEMETOLOGY METHOD 06/27/2024 2:53 PM EST [facility] Monocytes Absolute 0.65 0.20 - 1.00 K/mcL LAB HEMETOLOGY METHOD 06/27/2024 2:53 PM [facility] Eosinophils Absolute 0.07 0.00 - 0.50 K/mcL LAB HEMETOLOGY METHOD 06/27/2024 2:53 PM EST [facility] Basophils Absolute 0.02 0.00 - 0.20 K/mcL LAB HEMETOLOGY METHOD 06/27/2024 2:53 PM EST [facility] Immature Granulocytes Absolute 0.04(H) 0.00 - 0.03 K/mcL LAB HEMETOLOGY METHOD 06/27/2024 2:53 PM EST [facility] Blood Venous blood specimen / Unknown Venipuncture / Unknown 06/27/2024 10:29 AM EST 06/27/2024 10:29 AM EST us Howard Saavedra MD LAB BLOOD ORDERABLES Final Res ult [facility] [address] [place] [address], * (ABNORMAL) Prothrombin time with INR (06/27/2024 10:29 AM EST) Only the most recent of2 resultswithin the time period is included. Protime 14.8(H) 10.6 - 13.9 sec LAB COAGULATION METHOD 06/27/2024 2:30 PM [facility] INR 1.2 LAB COAGULATION METHOD 06/27/2024 2:30 PM [facility] Blood Venous blood specimen / Unknown Venipuncture / Unknown 06/27/2024 10:29 AM EST 06/27/2024 10:29 AM EST us Howard Saavedra MD LAB BLOOD ORDERABLES Final Res ult [facility] [address] [place] [address], [place] [phone] * (ABNORMAL) Basic metabolic panel (06/27/2024 10:29 AM EST) Only the most recent of4 resultswithin the time period is included. Sodium 141 133 - 145 mmol/L LAB CHEMISTRY METHOD 06/27/2024 3:03 PM [facility] Potassium 4.6 3.5 - 5.5 mmol/L LAB CHEMISTRY METHOD 06/27/2024 3:03 PM [facility] Chloride 109 96 - 110 mmol/L LAB CHEMISTRY METHOD 06/27/2024 3:03 PM [facility] CO2 27 21 - 32 mmol/L LAB CHEMISTRY METHOD 06/27/2024 3:03 PM [facility] Anion Gap 5 3 - 11 LAB CHEMISTRY METHOD 06/27/2024 3:03 PM [facility] Glucose 146(H) 70 - 100 mg/dL LAB CHEMISTRY METHOD 06/27/2024 3:03 PM [facility] BUN 27(H) 5 - 25 mg/dL LAB CHEMISTRY METHOD 06/27/2024 3:03 PM [facility] Creatinine 1.49(H) 0.70 - 1.30 mg/dL LAB CHEMISTRY METHOD 06/27/2024 3:03 PM [facility] eGFR 46(L) >=60 mL/min/1. 73m2 LAB CHEMISTRY METHOD 06/27/2024 3:03 PM EST [facility] Comment:Calculation based on the??Chronic Kidney Disease Epidemiology Collaboration (CKD-EPI) equation refit??without adjustment for race. BUN/Creatinine Ratio 18.1 LAB CHEMISTRY METHOD 06/27/2024 3:03 PM EST [facility] Calcium 9.3 8.5 - 10.5 mg/dL LAB CHEMISTRY METHOD 06/27/2024 3:03 PM EST [facility] Blood Venous blood specimen / Unknown Venipuncture / Unknown 06/27/2024 10:29 AM EST 06/27/2024 10:29 AM EST us Howard Saavedra MD LAB BLOOD ORDERABLES Final Res ult [facility] [address] [place] [address], * NM LEXISCAN STRESS TEST W/ MYOCARDIAL PERFUSION (05/09/2024 1:20 PM EST) Exercise/injec tion duration (min) 0 CV PACS STRESS Exercise/injec tion duration (sec) 57 CV PACS STRESS Peak SBP 138 mmHg CV PACS STRESS Peak DBP 83 mmHg CV PACS STRESS Peak HR 91 bpm CV PACS STRESS Baseline HR 71 bpm CV PACS STRESS Baseline SBP 138 mmHg CV PACS STRESS Baseline DBP 83 mmHg CV PACS STRESS Estimated workload 1.0 METS CV PACS STRESS Percent HR 67 % CV PACS STRESS Rate Pressure Product 12,558.0 mmHg*bpm CV PACS STRESS Target HR 116 bpm CV PACS STRESS Max HR Percent 66 % CV PA CS STRESS TID 1.01 CV PACS STRESS Nuc Stress EF 77 % CV PAC S STRESS Nuc Rest EF 70 % CV PACS STRESS Anatomical Region Laterality Modality Nuclear Medicine 05/09/2024 11:1 5 AM EST 05/09/2024 12:49 PM EST Narrative 05/09/2024 4:25 PM EST ?Normal myocardial perfusion study. ?No evidence of ischemia or infarct by myocardial perfusion imaging after attenuation correction. ?Gated SPECT imaging shows normal regional wall motion and thickening with a normal LVEF calculated to be 70%. ?The TID ratio is not elevated. ?ECG stress portion as documented below. Stress Findings A pharmacological stress test was performed using regadenoson, 0.4 mg IV over 10-15 seconds, followed by radiopharmacological injection 10 seconds post infusion. Total stress time was 0 min and 57 sec. The patient reached the end of the protocol. Reversal medication aminophylline and 75 mg given. The patient's hemodynamic response was adequate for diagnosis. Blood pressure demonstrated a normal response. Heart rate demonstrated a normal response. The patient reported chest discomfort during the stress test. ECG 83 y/o male with multiple cardiac risk factors had recent epsiode of possible VT caught by cook roast. Arrhythmias during stress: frequent premature atrial contractions (PACs) . Arrhythmias during recovery: occasional premature atrial contractions (PACs). Nuclear Study Quality Study technique: MPI, SPECT, multi, rest and stress, 1 day. Overall image quality is good. CT attenuation correction was utilized. Diaphragmatic attenuation artifact is present. Patient has a history of arrhythmia. Perfusion Defect Conclusion There is no evidence of transient ischemic dilation (TID). Stress Function Comments Left ventricular systolic function post-stress is normal. Stress ejection fraction is 77%. Rest Function Comments Left ventricular function at rest was normal. Resting ejection fraction was 70%. Stress Combined Conclusion Normal myocardial perfusion study. CT Findings CT was performed for attenuation correction purposes only. Nuclear Prior Study There is no prior study available for comparison. Perfusion Comments LV perfusion is normal. us Howard Saavedra MD CV STRESS PROCEDURES Final Res ult * (ABNORMAL) Complete blood count (05/09/2024 6:23 AM EST) [facility] Signature WBC 5.0 4.8 - 10.8 K/mcL LAB HEMETOLOGY METHOD 05/09/2024 7:27 AM EST [facility] RBC 3.60(L) 4.50 - 5.50 M/mcL LAB HEMETOLOGY METHOD 05/09/2024 7:27 AM [facility] Hemoglobin 10.8(L) 13.5 - 17.5 g/dL LAB HEMETOLOGY METHOD 05/09/2024 7:27 AM [facility] Hematocrit 33.5(L) 42.0 - 54.0 % LAB HEMETOLOGY METHOD 05/09/2024 7:27 AM [facility] MCV 94.4 79.0 - 98.0 FL LAB HEMETOLOGY METHOD 05/09/2024 7:27 AM [facility] MCH 30.4 27.0 - 32.0 pcg LAB HEMETOLOGY METHOD 05/09/2024 7:27 AM [facility] MCHC 32.2 32.0 - 37.0 g/dL LAB HEMETOLOGY METHOD 05/09/2024 7:27 AM [facility] RDW 13.1 11.0 - 15.0 % LAB HEMETOLOGY METHOD 05/09/2024 7:27 AM [facility] Platelets 188 130 - 400 K/mcL LAB HEMETOLOGY METHOD 05/09/2024 7:27 AM [facility] MPV 10.2 7.0 - 11.0 FL LAB HEMETOLOGY METHOD 05/09/2024 7:27 AM [facility] NRBC 0.0 <1.0 % LAB HEMETOLOGY METHOD 05/09/2024 7:27 AM [facility] NRBC Absolute 0.00 <0.10 K/mcL LAB HEMETOLOGY METHOD 05/09/2024 7:27 AM [facility] Blood Venous blood specimen / Unknown Venipuncture / Unknown 05/09/2024 6:23 AM EST 05/09/2024 7:08 AM EST Shane Montgomery MD LAB BLOOD ORDERABLES Final Re sult [facility] [address] [place] [address], * Magnesium (05/09/2024 6:23 AM EST) Only the most recent of2 resultswithin the time period is included. [facility] Magnesium 2.4 1.9 - 2.6 mg/dL LAB CHEMISTRY METHOD 05/09/2024 7:46 AM EST [facility] Blood Venous blood specimen / Unknown Venipuncture / Unknown 05/09/2024 6:23 AM EST 05/09/2024 7:08 AM EST us Shane Montgomery MD LAB BLOOD ORDERABLES Final Re sult Performing Organization Address [facility] de Phone Number [facility] [address] [place] [address], * POCT Glucose, blood (05/08/2024 7:43 AM EST) Only the most recent of3 resultswithin the time period is included. [facility] Glucose POCT 97 70 - 100 mg/dL 05/08/2024 7:44 AM EST [facility] Blood Capillary blood specimen / Unknown 05/08/2024 7:43 AM EST 05/08/2024 7:45 AM EST us Shane Montgomery MD LAB POINT OF CARE TE ST DOCKED DEVICE UNSOLICITED RESULTS Final Result Performing Organization Address [facility] Co de Phone Number [facility] [address] [place] [address], * (ABNORMAL) Troponin I high sensitivity (05/08/2024 5:28 AM EST) Only the most recent of3 resultswithin the time period is included. [facility] High Sensitivity Troponin I 82(H) <=79 ng/L LAB CHEMISTRY METHOD 05/08/2024 6:13 AM [facility] Blood Venous blood specimen / Unknown Venipuncture / Unknown 05/08/2024 5:28 AM EST 05/08/2024 5:47 AM EST [facility] - 05/08/2024 6:13 AM EST High levels of biotin in samples may falsely decrease hsTroponin values. ??Use caution when interpreting hsTroponin results in patients taking biotin who exhibit renal impairment (eGFR <60) or in patients taking more than 20 mg/day of biotin. us Myke Zhu MD LAB BLOOD ORDERABLES Final Result [facility] [address] [place] [address], [place] [phone] * Lipid panel with reflex to direct LDL (05/08/2024 5:28 AM EST) Cholesterol 123 0 - 200 mg/dL LAB CHEMISTRY METHOD 05/08/2024 6:13 AM [facility] Triglycerides 71 0 - 150 mg/dL LAB CHEMISTRY METHOD 05/08/2024 6:13 AM [facility] HDL 48 >=40 mg/dL LAB CHEMISTRY METHOD 05/08/2024 6:13 AM [facility] LDL Calculated 61 0 - 100 mg/dL LAB CHEMISTRY METHOD 05/08/2024 6:13 AM [facility] VLDL Cholesterol Baryr 14.2 mg/dL LAB CHEMISTRY METHOD 05/08/2024 6:13 AM [facility] Non HDL Chol. (LDL+VLDL) 75 <145 mg/dL LAB CHEMISTRY METHOD 05/08/2024 6:13 AM [facility] Chol/HDL Ratio 2.6 0.0 - 4.4 LAB CHEMISTRY METHOD 05/08/2024 6:13 AM [facility] Blood Venous blood specimen / Unknown Venipuncture / Unknown 05/08/2024 5:28 AM EST 05/08/2024 5:46 AM EST Arjun LOZANO LAB BLOOD ORDERABLES Final Res ult [facility] [address] [place] [address], [place] [phone] * CT Chest wo Contrast (05/07/2024 7:50 PM EST) Anatomical Region Laterality Modality Body Computed Tomogra phy 05/07/2024 8:10 PM EST Impressions 05/07/2024 8:10 PM EST 1. Descending thoracic aortic aneurysms measuring 3.6 cm. Attention on follow-up. 2. Mild centrilobular and paraseptal emphysema. 3. Bilateral pulmonary nodules measuring up to 7 mm in the right lower lobe. Per Fleischner criteria: Low-risk patients: CT at 3-6 months, then consider CT at 18-24 months. High-risk patients: CT at 3-6 months, then CT at 18-24 months. This document has been electronically signed by: Mike Hood MD on 05/07/2024 20:10:48 Narrative 05/07/2024 8:10 PM EST EXAM: CT Chest Without Intravenous Contrast COMPARISON: No relevant prior studies available. FINDINGS: LUNGS AND PLEURAL SPACES: Mild centrilobular and paraseptal emphysema. Subpleural right lower lobe pulmonary nodule measuring 7 mm series 4, image 132. Mm nodule in the right middle lobe. Scattered subpleural tiny pulmonary nodules in the left lower lobe measuring no more than 3 mm. No consolidation. No pneumothorax. No significant effusion. HEART: Cardiomegaly without significant pericardial effusion. Coronary artery calcifications. MEDIASTINUM: Mild scattered tiny mediastinal and epicardial lymph nodes. Small hiatal hernia. BONES/JOINTS: Osteopenia with diffuse multilevel spondylosis. Thoracic diffuse idiopathic skeletal hyperostosis. Nonspecific sclerotic focus along the left posterior aspect of T12. No acute fracture. No dislocation. SOFT TISSUES: Mild gynecomastia. VASCULATURE: Descending thoracic aortic aneurysms measuring 3.6 cm. Diffuse atheromatous plaque disease throughout the aorta and branch vessels. LYMPH NODES: See above. LIVER: Innumerable cysts some of which demonstrate calcifications along the visualized liver. If clinical concern persists consider follow-up MRI. KIDNEYS AND URETERS: Left-sided hypodense, intermediate dense and hemorrhagic renal cysts. Right kidney appears surgically absent. Procedure Note Mike Hood MD - 05/07/2024 EXAM: CT Chest Without Intravenous Contrast COMPARISON: No relevant prior studies available. FINDINGS: LUNGS AND PLEURAL SPACES: Mild centrilobular and paraseptal emphysema. Subpleural right lower lobe pulmonary nodule measuring 7 mm series 4, image 132. Mm nodule in the right middle lobe. Scattered subpleural tiny pulmonary nodules in the left lower lobe measuring no more than 3 mm. No consolidation. No pneumothorax. No significant effusion. HEART: Cardiomegaly without significant pericardial effusion. Coronary artery calcifications. MEDIASTINUM: Mild scattered tiny mediastinal and epicardial lymph nodes. Small hiatal hernia. BONES/JOINTS: Osteopenia with diffuse multilevel spondylosis. Thoracic diffuse idiopathic skeletal hyperostosis. Nonspecific sclerotic focus along the left posterior aspect of T12. No acute fracture. Nodislocation. SOFT TISSUES: Mild gynecomastia. VASCULATURE: Descending thoracic aortic aneurysms measuring 3.6 cm. Diffuse atheromatous plaque disease throughout the aorta and branch vessels. LYMPH NODES: See above. LIVER: Innumerable cysts some of which demonstrate calcifications along the visualized liver. If clinical concern persists consider follow-upMRI. KIDNEYS AND URETERS: Left-sided hypodense, intermediate dense and hemorrhagic renal cysts. Right kidney appears surgically absent. IMPRESSION: 1. Descending thoracic aortic aneurysms measuring 3.6 cm. Attention on follow-up. 2. Mild centrilobular and paraseptal emphysema. 3. Bilateral pulmonary nodules measuring up to 7 mm in the right lower lobe. Per Fleischner criteria: Low-risk patients: CT at 3-6 months, then consider CT at 18-24 months. High-risk patients: CT at 3-6 months, thenCT at 18-24 months. This document has been electronically signed by: Mike Hood MD on 05/07/2024 20:10:48 us Crissy Stevens MD IMG CT PROCEDURES Final Result * XR Chest 2 Views (05/07/2024 4:25 PM EST) Anatomical Region Laterality Modality Body Radiographic Angela ging 05/08/2024 9:21 AM EST Impressions 05/08/2024 9:23 AM EST Impression: Hyperinflated lungs. No significant change. -------- FINAL REPORT -------- Dictated By: Dayana Barrett Dictated Date: 05/08/2024 09:21 ET Assigned Physician: Dayana Barrett Reviewed and Electronically Signed By: Dayana Barrett Signed Date: 05/08/2024 09:23 ET Workstation ID: [id number] Transcribed By: Self Edit Transcribed Date: 05/08/2024 09:21 ET Narrative 05/08/2024 9:23 AM EST History: Chest pain. Comparison: 03/23/24, 06/11/22 Findings: PA and lateral views. The cardiac silhouette remains normal in size. Atherosclerotic calcification and tortuosity of the thoracic aorta are noted. Hilar contours are stable. The lungs are hyperinflated but clear. The costophrenic angles are sharp. Flowing hyperostosis is seen along the anterior aspect of the spine. Mild loss of height of at least 2 of the lower thoracic vertebral bodies is without significant change. No retropulsion is noted. Procedure Note Dayana Barrett MD - 05/08/2024 History: Chest pain. Comparison: 03/23/24, 06/11/22 Findings: PA and lateral views. The cardiac silhouette remains normal in size.Atherosclerotic calcification and tortuosity of the thoracic aorta arenoted. Hilar contours are stable. The lungs are hyperinflated but clear. The costophrenic angles aresharp. Flowing hyperostosis is seen along the anterior aspect of the spine. Mildloss of height of at least 2 of the lower thoracic vertebral bodies iswithout significant change. No retropulsion is noted. IMPRESSION: Impression: Hyperinflated lungs. No significant change. -------- FINAL REPORT -------- Dictated By: Dayana Barrett Dictated Date: 05/08/2024 09:21 ET Assigned Physician: Dayana Barrett Reviewed and Electronically Signed By: Dayana Barrett Signed Date: 05/08/2024 09:23 ET Workstation ID: [id number] Transcribed By: Self Edit Transcribed Date: 05/08/2024 09:21 ET Myke Zhu MD IMG XR PROCEDURES Final Res ult * (ABNORMAL) B-type natriuretic peptide (05/07/2024 3:31 PM EST) [facility] BNP 118(H) <=100 pcg/mL LAB CHEMISTRY METHOD 05/07/2024 4:25 PM EST [facility] Blood Venous blood specimen / Unknown Venipuncture / Unknown 05/07/2024 3:31 PM EST 05/07/2024 3:50 PM EST us Crissy Stevens MD LAB BLOOD ORDERABLES Final Resul t Performing Organization Address [facility]/ZIP Co de Phone Number [facility] [address] [place] [address], [place] [phone] * (ABNORMAL) Lipase (05/07/2024 3:31 PM EST) [facility] Lipase 83(H) 13 - 75 unit/L LAB CHEMISTRY METHOD 05/07/2024 4:24 PM EST [facility] Blood Venous blood specimen / Unknown Venipuncture / Unknown 05/07/2024 3:31 PM EST 05/07/2024 3:50 PM EST us Crissy Stevens MD LAB BLOOD ORDERABLES Final Resul t Performing Organization Address [facility]/ZIP Co de Phone Number [facility] [address] [place] [address], [place] [phone] * Hemoglobin A1c (05/07/2024 3:31 PM EST) [facility] Hemoglobin A1C 5.7 <6.5 % LAB CHEMISTRY METHOD 05/09/2024 12:13 PM EST [facility] Mean Bld Glu Estim. 117 mg/dL LAB CHEMISTRY METHOD 05/09/2024 12:13 PM [facility] Blood Venous blood specimen / Unknown Venipuncture / Unknown 05/07/2024 3:31 PM EST 05/07/2024 3:50 PM EST us Arjun LOZANO LAB BLOOD ORDERABLES Final Res ult [facility] [address] [place] [address], [place] [phone] * (ABNORMAL) Comprehensive metabolic panel (05/07/2024 3:31 PM EST) Sodium 142 133 - 145 mmol/L LAB CHEMISTRY METHOD 05/07/2024 4:24 PM [facility] Potassium 4.8 3.5 - 5.5 mmol/L LAB CHEMISTRY METHOD 05/07/2024 4:24 PM [facility] Chloride 109 96 - 110 mmol/L LAB CHEMISTRY METHOD 05/07/2024 4:24 PM [facility] CO2 29 21 - 32 mmol/L LAB CHEMISTRY METHOD 05/07/2024 4:24 PM [facility] Anion Gap 4 3 - 11 LAB CHEMISTRY METHOD 05/07/2024 4:24 PM [facility] Glucose 124(H) 70 - 100 mg/dL LAB CHEMISTRY METHOD 05/07/2024 4:24 PM [facility] BUN 33(H) 5 - 25 mg/dL LAB CHEMISTRY METHOD 05/07/2024 4:24 PM [facility] Creatinine 1.61(H) 0.70 - 1.30 mg/dL LAB CHEMISTRY METHOD 05/07/2024 4:24 PM [facility] eGFR 42(L) >=60 mL/min/1. 73m2 LAB CHEMISTRY METHOD 05/07/2024 4:24 PM [facility] Comment:Calculation based on the??Chronic Kidney Disease Epidemiology Collaboration (CKD-EPI) equation refit??without adjustment for race. BUN/Creatinine Ratio 20.5 LAB CHEMISTRY METHOD 05/07/2024 4:24 PM [facility] Calcium 9.2 8.5 - 10.5 mg/dL LAB CHEMISTRY METHOD 05/07/2024 4:24 PM [facility] AST (SGOT) 16 10 - 42 unit/L LAB CHEMISTRY METHOD 05/07/2024 4:24 PM [facility] ALT (SGPT) 26 10 - 60 unit/L LAB CHEMISTRY METHOD 05/07/2024 4:24 PM [facility] Alkaline Phosphatase 103 42 - 121 unit/L LAB CHEMISTRY METHOD 05/07/2024 4:24 PM [facility] Total Protein 6.5 6.0 - 8.0 g/dL LAB CHEMISTRY METHOD 05/07/2024 4:24 PM [facility] Albumin 3.4 3.2 - 5.0 g/dL LAB CHEMISTRY METHOD 05/07/2024 4:24 PM [facility] Total Bilirubin 0.3 0.0 - 1.4 mg/dL LAB CHEMISTRY METHOD 05/07/2024 4:24 PM [facility] Blood Venous blood specimen / Unknown Venipuncture / Unknown 05/07/2024 3:31 PM EST 05/07/2024 3:50 PM EST us Crissy Stevens MD LAB BLOOD ORDERABLES Final Resul t [facility] [address] [place] [address], from Last 3 Months Insurance [employer] Advance Directives Documents on File Type Date Recorded 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 Health Care Decision (hx) 02/06/2023 HE ALTH CARE PROXY Health Care Decision (hx) 02/06/2023 HE ALTH CARE PROXY Health Care Decision (hx) 02/06/2023 HE ALTH CARE PROXY Health Care Decision (hx) 02/06/2023 HE ALTH CARE PROXY Health Care Decision (hx) 02/06/2023 HE ALTH CARE PROXY Health Care Decision (hx) 02/06/2023 HE ALTH CARE PROXY Health Care Decision (hx) 02/06/2023 HE ALTH CARE PROXY Health Care Decision (hx) 02/06/2023 HE ALTH CARE PROXY Health Care Decision (hx) 02/06/2023 HE ALTH CARE PROXY Health Care Decision (hx) 02/06/2023 HE ALTH CARE PROXY Health Care Decision (hx) 02/06/2023 HE ALTH CARE PROXY Health Care Decision (hx) 06/06/2015 AD TEJEDA DIRECTIVE Health Care Decision (hx) 06/06/2015 AD TEJEDA DIRECTIVE Health Care Decision (hx) 06/06/2015 AD TEJEDA DIRECTIVE Health Care Decision (hx) 06/06/2015 AD TEJEDA DIRECTIVE Health Care Decision (hx) 06/06/2015 AD TEJEDA DIRECTIVE Health Care Decision (hx) 06/06/2015 AD TEJEDA DIRECTIVE Health Care Decision (hx) 06/06/2015 AD TEJEDA DIRECTIVE Health Care Decision (hx) 06/06/2015 AD TEJEDA DIRECTIVE Health Care Decision (hx) 06/06/2015 AD TEJEDA DIRECTIVE Health Care Decision (hx) 06/06/2015 AD TEJEDA DIRECTIVE Health Care Decision (hx) 06/06/2015 AD TEJEDA DIRECTIVE Health Care Decision (hx) 06/06/2015 AD TEJEDA DIRECTIVE Health Care Decision (hx) 06/06/2015 AD TEJEDA DIRECTIVE Health Care Decision (hx) 06/06/2015 AD TEJEDA DIRECTIVE Health Care Decision (hx) 06/06/2015 AD TEJEDA DIRECTIVE Health Care Decision (hx) 06/06/2015 AD TEJEDA DIRECTIVE Health Care Decision (hx) 06/06/2015 AD TEJEDA DIRECTIVE Health Care Decision (hx) 06/06/2015 AD TEJEDA DIRECTIVE Health Care Decision (hx) 06/06/2015 AD TEJEDA DIRECTIVE Health Care Decision (hx) 06/06/2015 AD TEJEDA DIRECTIVE Health Care Decision (hx) 06/06/2015 AD TEJEDA DIRECTIVE Health Care Decision (hx) 06/06/2015 AD TEJEDA DIRECTIVE Health Care Decision (hx) 05/30/2015 AD TEJEDA DIRECTIVE Health Care Decision (hx) 05/30/2015 AD TEJEDA DIRECTIVE Health Care Decision (hx) 05/30/2015 AD TEJEDA DIRECTIVE Health Care Decision (hx) 05/30/2015 AD TEJEDA DIRECTIVE Health Care Decision (hx) 05/30/2015 AD TEJEDA DIRECTIVE Health Care Decision (hx) 05/30/2015 AD TEJEDA DIRECTIVE Health Care Decision (hx) 05/30/2015 AD TEJEDA DIRECTIVE Health Care Decision (hx) 05/30/2015 AD TEJEDA DIRECTIVE Health Care Decision (hx) 05/30/2015 AD TEJEDA DIRECTIVE Health Care Decision (hx) 05/30/2015 AD TEJEDA DIRECTIVE Health Care Decision (hx) 05/30/2015 AD TEJEDA DIRECTIVE Health Care Decision (hx) 05/30/2015 AD TEJEDA DIRECTIVE Health Care Decision (hx) 05/30/2015 AD TEJEDA DIRECTIVE Health Care Decision (hx) 05/30/2015 AD TEJEDA DIRECTIVE Health Care Decision (hx) 05/30/2015 AD TEJEDA DIRECTIVE Health Care Decision (hx) 05/30/2015 AD TEJEDA DIRECTIVE Health Care Decision (hx) 05/30/2015 AD TEJEDA DIRECTIVE Health Care Decision (hx) 05/30/2015 AD TEJEDA DIRECTIVE Health Care Decision (hx) 05/30/2015 AD TEJEDA DIRECTIVE Health Care Decision (hx) 05/30/2015 AD TEJEDA DIRECTIVE Health Care Decision (hx) 05/30/2015 AD TEJEDA DIRECTIVE Health Care Decision (hx) 05/30/2015 AD TEJEDA DIRECTIVE * Full Code - Default (Latest Code Status on File) Date Activated Date Inactivated Comments 05/07/2024 9:42 PM 05/09/2024 7:49 PM This is orde r is used when code status has not been discussed with the patient, or code status is otherwise unknown/unconfirmed To update the patient's code status, place a code status order. Do not modify or discontinue any currently active code status orders. Healthcare Agents on File Name Relationship Healthcare Agent Relationshi p Communication Howard Jennings Son Health Care Agent Hattie Munoz Daughter First Alternate Health Car e Agent Care Teams Hearing Aid Technician Relationship Specialty Start Date End Date Vahid Mcclellan MD [address] [facility] [address] [place] [address] PCP - General 03/27/23
--- OUTSIDE RECORDS SUMMARY | 2024-07-28 13:10 | XMS_ITS | Clinical Summary ---
Author Organization [facility] Address [address] [facility] [address] [place] [address] Phone Care Team Providers Care Steel Die Printer Name Role Phone Vahid Mcclellan MD Primary Care Provider [phone] Allergies No known active allergies Medications albuterol [...] Insurance [employer] Care Teams Steel Die Printer Relationship Specialty Start Date End Date Vahid Mcclellan MD [address] [place] [phone] PCP - General 06/11/20
--- OUTSIDE RECORDS SUMMARY | 2024-07-28 13:10 | XMS_ITS | Encounter Summary ---
Author Organization [facility] Address [address] [place] [address] Phone Care Team Providers Care Warp Spooler Name Role Phone Vahid Mcclellan MD Primary Care Provider [phone] Encounter Details Date Type Department Care Team (Late st Contact Info) Description 11/14/2020 Orders Only [facility] [address] [place] [address] Rivera Murray MD Chronic kidney [...] 10:18 AM EDT) Glucose 121(H) (70-99) MG/DL [facility] BUN 29(H) (8-23) MG/DL [facility] Creatinine 1.9(H) (0.7-1.2) MG/DL [facility] Sodium 142 (133-145) MMOL/L [facility] Potassium 4.5 (3.6-5.2) MMOL/L [facility] Chloride 107 (98-107) MMOL/L [facility] Bicarbonate (CO2) 23 (22-29) MMOL/L [facility] Anion Gap 12 (4-17) [facility] Albumin 4.2 (3.4-4.8) GM/DL [facility] Calcium 9.4 (8.6-10.5) MG/DL [facility] Phosphorus, Serum 3.2 (2.5-4.5) MG/DL [facility] Est GFR Non 32 ML/MIN/1.7 3 M2 [facility] Comment: Creatinine based estimated glomerular filtration rate (eGFR) is calculated using the Chronic Kidney Disease Epidemiology Collaboration (CKD-EPI). The CKD-EPI creatinine equation has not been validated in children (<18 years), women or in some racial or ethnic subgroups other than Caucasians and Americans. EST GFR 37 ML/MIN/1.7 3 M2 [facility] Comment: Creatinine based estimated glomerular filtration rate (eGFR) is calculated using the Chronic Kidney Disease Epidemiology Collaboration (CKD-EPI). The CKD-EPI creatinine equation has not been validated in children (<18 years), women or in some racial or ethnic subgroups other than Caucasians and Americans. Testing performed or reported by [facility], a Service of [facility], [address] [place] [address] Katlin Morales MD, Chief Clinical Officer [facility]# [id number] Blood (Blood, Venous) 02/08/2021 10:18 AM EDT 02/08/2021 10:19 AM EDT us Rivera Murray MD LAB BLOOD ORDERABLES Final Resul t [facility] * (ABNORMAL) CBC (02/08/2021 10:18 AM EDT) White Blood Cells 5.2 (4.0-11.0) K/MM3 [facility] RBC 4.62(L) (4.70-6.10 ) M/MM3 [facility] Hgb 13.4(L) (13.7-17.1 ) GM/DL [facility] Hematocrit 43.2 (40.5-50.0 ) % [facility] MCV 93.5 (80.0-94.0 ) FL [facility] MCH 29.0 (27.0-34.0 ) PG [facility] MCHC 31.0(L) (33.0-37.0 ) g/dL [facility] Platelets 222 (150-460) K/MM3 [facility] RDW-SD 46.0 (<47.0) FL [facility] MPV 10.3 (9.4-12.4) FL [facility] nRBC Count 0.0 #/100 WBC'S [facility] NRBC Absolute 0.0 K/MM3 [facility] Comment: Testing performed or reported by [facility], a Service of [facility], [address] [place] [address] Katlin Morales MD, Chief Clinical Officer [facility]# [id number] Blood (Blood, Venous) 02/08/2021 10:18 AM EDT 02/08/2021 10:19 AM EDT us Rivera Murray MD LAB BLOOD ORDERABLES Final Resul t [facility] documented in this encounter Visit Diagnoses Diagnosis Chronic kidney disease stage 4 (HCC) Hypertensive renal disease History of malignant neoplasm of kidney documented in this encounter Care Teams Warp Spooler Relationship Specialty Start Date End Date Vahid Mcclellan MD [address] [place] [address] PCP - General 06/11/20 documented as of this encounter
--- OUTSIDE RECORDS SUMMARY | 2024-07-28 13:10 | XMS_ITS | Encounter Summary ---
Author Organization [facility] [place] [address] Care Team Providers Care Manager Biostatistics Name Role Phone Vahid Mcclellan MD Primary Care Provider Encounter Details Date Type Department Care Team ([facility] st Contact Info) Description 07/19/2024 Telephone [facility] - [facility] 154 300 [facility] 154 [place] [address] Ting Avila MD 300 [facility] 154 [place] [address] Social History Tobacco Use Types Packs/Day Years [...] - 07/19/2024 2:02 PM EST Device implant 2.12.23 ; could you f/u with this call please ? * Waqas Hatfield - 07/19/2024 1:14 PM EST Patient calling [...] Description 08/02/2024 11:30 AM EST Office Visit [facility] Hematology Oncology [address] [place] [phone] Kathya Boyer, DO [address] [place] [address] 08/31/2024 1:00 PM EDT Appointment [facility] CT Scan [address] [place] [address] 09/09/2024 11:00 AM EDT Office Visit Internal Medicine - [place] 175 [facility] 200 [place] [phone] Radha Ledesma PA 175 [facility] 200 [place] [address] 09/15/2024 9:20 AM EDT Office Visit [facility] - [facility] [address] 300 [facility] 154 [place] [phone] Ting Avila MD 300 [facility] 154 [place] [address] 10/21/2024 1:00 PM EDT Office Visit Pulmonolgy - [place] 175 [facility] 200 [place] [phone] Aishwarya Chapa MD 175 [facility] 200 [place] [address] 07/27/2025 2:00 PM EST Ancillary Procedure [facility] - [facility] 154 300 [facility] 154 [place] [phone] documented as of this encounter Visit Diagnoses Not on filedocumented in this encounter Care Teams Manager Biostatistics Relationship Specialty Start Date End Date Vahid Mcclellan MD 175 [facility] 200 [place] [address] PCP - General 03/27/23 documented as of this encounter
--- OUTSIDE RECORDS SUMMARY | 2024-07-28 13:10 | XMS_ITS ---
Author Organization [address] [place] [address] [place] [phone] Phone Care Team Providers Care Public Policy Mediator Name Role Phone Vahid Mcclellan MD Primary Care Provider [phone] Active Problems Problem Noted Date Diagnosed Date [...] treatments are documented for this patient in [facility]. Treatments may have been administered in [...]
--- OUTSIDE RECORDS SUMMARY | 2024-07-28 13:10 | XMS_ITS | Encounter Summary ---
Author Organization [facility] [place] [address] Care Team Providers Care Armature Winder Repairer Name Role Phone Vahid Mcclellan MD Primary Care Provider [phone] Reason for Visit * Reason Onset Date Comments Request For Order(s) 07/26/2024 [facility] Discharge Assessment Encounter Details Date Type Department Care Team (Late st Contact Info) Description 07/26/2024 Telephone Internal Medicine [address] 200 [place] [phone] Ivy Connolly MA Request For Order(s) ([facility] Discharge Assessment /) Social History Tobacco Use Types Packs/Day [...] Progress Notes * Ivy Connolly MA - 07/26/2024 2:02 PM EST [facility] Discharge Assessment Please sign & fax [phone] documented in this encounter Plan of Treatment Upcoming Encounters Date Type Department Care Team (Late st Contact Info) Description 08/02/2024 11:30 AM EST Office Visit [facility] Hematology Oncology [address] [place] [phone] Kathya Boyer, [address] [place] [address] 08/31/2024 1:00 PM EDT Appointment [facility] CT Scan [address] [place] [address] 09/09/2024 11:00 AM EDT Office Visit Internal Medicine [place] [address] [address] Radha Ledesma PA [address] [address] 09/15/2024 9:20 AM EDT Office Visit [facility] Cardiology [facility] - [facility] 154 300 [facility] 154 [place] [address] Ting Avila MD [address] [address] 10/21/2024 1:00 PM EDT Office Visit Pulmonolgy - [place] [address] [phone] Aishwarya Chapa MD [address] [address] 07/27/2025 2:00 PM EST Ancillary Procedure [facility] Cardiology [facility] - [facility] [address] [phone] documented as of this encounter Visit Diagnoses Not on filedocumented in this encounter Care Teams Armature Winder Repairer Relationship Specialty Start Date End Date Vahid Mcclellan MD [address] [address] PCP - General 03/27/23 documented as of this encounter
== END 2024-07-28 11:24 | disposition home or self-care (01) ==
PROVIDERS: PCP Internal Medicine; Visit Provider Internal Medicine Nephrology
DX: E79.0 Hyperuricemia without signs of inflammatory arthritis and tophaceous disease (principal); Z85.528 Personal history of other malignant neoplasm of kidney; I10 Essential (primary) hypertension; Z90.5 Acquired absence of kidney; N18.31 Chronic kidney disease, stage 3a
CPT/HCPCS: 99214

== ENCOUNTER → 2024-07-28 10:59 | Outpatient (BNVA) | payer MEDICARE, SELFPAY | PROVIDERS: PCP Internal Medicine; Visit Provider Internal Medicine Nephrology | DX: I12.9 Hypertensive chronic kidney disease with stage 1 through stage 4 chronic kidney disease, or unspecified chronic kidney disease (principal); N18.31 Chronic kidney disease, stage 3a; E79.0 Hyperuricemia without signs of inflammatory arthritis and tophaceous disease; Z90.5 Acquired absence of kidney; Z85.528 Personal history of other malignant neoplasm of kidney | CPT/HCPCS: 99212 ==

== ENCOUNTER 2024-11-17 10:02 | Outpatient (REF) | payer MEDICARE, SELFPAY ==
--- OUTSIDE RECORDS SUMMARY | 2024-11-17 11:15 | XMS_ITS | Clinical Summary ---
Author Organization [facility] Address [address] [id number] Care Team Providers Care Refund Specialist Name Role Phone Vahid Mcclellan MD Primary [...] 72 03/01/2024 11:50 AM EDT Temperature 36.1 C (96.9 F) 03/01/2024 11:50 AM EDT Respiratory Rate - - Oxygen Saturation 97% [...] risk series) 09/01/2020 08/04/2020, 07/14/2020 Influenza Vaccine (Season Ended) 2025 03/07/2022, 03/07/2022, 05/02/2019, Additional history exists Pneumococcal Vaccine Completed 04/01/2016, 03/27/2015, 07/08/2011 Hepatitis B Vaccines Aged Out No long er eligible based on patient's age to complete this topic RSV Ped < 20 months Aged Out No longe r eligible based on patient's age to complete this topic Care Teams Refund Specialist Relationship Specialty Start Date End Date Vahid Mcclellan MD PCP - General Internal Medicine 03/27/23
[2024-11-17 17:26] LABS: MANUAL DIFF FLAG NO
[2024-11-17 17:56] LABS: Basophils Percent Auto 0.4 % (0-2); Eosinophils Absolute Auto 0.1 X10*3/uL (0.0-0.4); Eosinophils Percent Auto 2.7 % (0-4); Hematocrit 35.9 % (42.0-52.0); Hemoglobin 11.3 g/dl (14.0-18.0); Imm Gran Abs Auto 0.05 X10*3/uL (0.00-0.03); Lymphocytes Absolute Auto 0.8 X10*3/uL (1.2-4.9); Lymphocytes Percent Auto 15.5 % (20-40); Mean Corpuscular HGB Conc 31.5 g/dl (31.0-36.0); Mean Corpuscular Hemoglobin 30.7 pg (27.0-33.0); Mean Corpuscular Volume 97.6 fL (80.0-98.0); Mean Platelet Volume 9.9 fL (9.4-12.4); Monocytes Absolute Auto 0.6 X10*3/uL (0.1-1.2); Monocytes Percent Auto 11.1 % (2-11); Neutrophils Absolute Auto 3.6 x10*3/uL (2.0-8.3); Neutrophils Percent Auto 69.3 % (45-73); Platelet Count 197 X10*3/uL (160-400); Red Blood Count 3.68 X10*6/uL (4.60-5.80); Red Cell Distribution Width 13.6 % (11.0-16.0); White Blood Count 5.2 X10*3/uL (4.8-10.8)
[2024-11-17 18:06] LABS: Anion Gap 15 (12-20); Blood Urea Nitrogen 37 mg/dL (9-16); Calcium 9.5 mg/dL (8.4-10.2); Carbon Dioxide 25 mmol/L (22-29); Chloride 108 mmol/L (96-108); Estimated Glomerular Filt Rate 44; Phosphorus 4.2 mg/dL (2.7-4.5); Potassium 4.7 mmol/L (3.3-5.1); Sodium 143 mmol/L (135-145)
[2024-11-17 18:09] LABS: Parathyroid Hormone Intact 63.6 pg/mL (8.7-77.1)
[2024-11-17 18:11] LABS: Vitamin D 25-OH Total 37.5 ng/mL (>30)
== END 2024-11-17 10:03 | disposition home or self-care (01) ==
LOC: HO.HKASLDS 10:02
PROVIDERS: Visit Provider Internal Medicine Nephrology
DX: I12.9 Hypertensive chronic kidney disease with stage 1 through stage 4 chronic kidney disease, or unspecified chronic kidney disease (principal); N18.31 Chronic kidney disease, stage 3a; Z85.528 Personal history of other malignant neoplasm of kidney; E79.0 Hyperuricemia without signs of inflammatory arthritis and tophaceous disease; Z90.5 Acquired absence of kidney
CPT/HCPCS: 36415; 80051; 82306; 82310; 82565; 83970; 84100; 84520; 85025

== ENCOUNTER 2024-11-24 10:50 | Outpatient (AMB) | payer MEDICARE, SELFPAY ==
[2024-11-24 11:11] VITALS: BP 117/58; PULSE 77; O2SAT 95; BMI 27.6
--- NOTE | 2024-11-24 11:11 | HO.NEPHOV_ITS ---
Vital Signs 11/24/24 11:11 Height 5 ft 11 in Weight 198 lb BMI 27.6 BP 117/58 L Blood Pressure Location Lt brachial Position Sitting Pulse 77 Pulse Source Pulse Oximeter Pulse Oximetry (%) 95 Oxygen Delivery Method Room Air Intake Visit Reasons: 4mon follow-up w/labs-LVM Intake Note: Patient here for a follow-up. Consulting Practice Director Required: No Accompanied by: Self / Same As Patient Allergies No Known Allergies Allergy (Verified 11/24/24 11:13) Do you need a note to return to daycare/school/sports/work: No HPI Comments Details: Mr. Marcano was seen in follow-up of his chronic kidney disease and hy pertension. He follows up with Urology annually due to his history of right renal cell carcinoma and status post nephrectomy in 2014. He also has prostate cancer and is following with Oncologist. His serum creatinine had been stable . He denies any chest pain, shortness of breath, nausea vomiting, diarrhea, pedal edema or any urinary symptoms. He has no orthostasis. He is compliant with adequate fluid intake and avoids nonsteroidal anti-inflammatory medications. 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 His BP is at goal. He is S/P pacemaker for sick sinus syndrome. He feels well. [facility] Medical History Pacemaker Prostate cancer History of renal cell cancer Acquired solitary kidney Essential (primary) hypertension CKD (chronic kidney disease) stage 3, GFR 30-59 ml/min Surgical History History of nephrectomy Social History Alcohol intake: never Patient Tobacco Use Status: Never used Tobacco Review of Systems Const All systems reviewed & are unremarkable except as noted in HPI and below Physical Exam Vital Signs: Last Vital Signs Pulse 77 11/24/24 11:11 BP 117/58 L 11/24/24 11:11 Pulse Ox 95 11/24/24 11:11 Oxygen Delivery Method Room Air 11/24/24 11:11 BMI result Body Mass Index 27.6 Const General: comfortable and no acute distress Orientation/consciousness: patient oriented x3 HEENT Head: Yes normocephalic Mouth: Normal oral and palatal mucosa present Eyes EOM: EOMs intact bilaterally Neck Neck: Yes supple Resp Auscultation: clear to auscultation bilaterally Cardio Jugular venous distension: no JVD Rate: regular rate GI Palpation (GI): Soft to palpation Auscultation: normal bowel sounds General: Yes no CVA tenderness Back/Spine/Pelvis Back: no CVA tenderness Skin General skin exam: no rashes or lesions noted Neuro General: patient oriented x3 and moves all extremities Extrem General: Yes no pedal edema Results Reviewed Nephrology Results: Hgb, (14.0-18.0) 11.3 g/dl L 11/17/24 WBC, (4.8-10.8) 5.2 X10*3/uL 11/17/24 Plt Count, (160-400) 197 X10*3/uL 11/17/24 Sodium, (135-145) 143 mmol/L 11/17/24 Potassium, (3.3-5.1) 4.7 mmol/L 11/17/24 Chloride, (96-108) 108 mmol/L 11/17/24 Carbon Dioxide, (22-29) 25 mmol/L 11/17/24 BUN, (9-16) 37 mg/dL H 11/17/24 Creatinine, (0.5-1.4) 1.52 mg/dL H 11/17/24 Calcium, (8.4-10.2) 9.5 mg/dL 11/17/24 Phosphorus, (2.7-4.5) 4.2 mg/dL 11/17/24 PTH Intact, (8.7-77.1) 63.6 pg/mL 11/17/24 Urine Creatinine 177.98 mg/dL 09/23/23 Protein/Creatinin Ratio, (<0.2) 0.31 H 09/23/23 Assessment & Plan Assessment & Plan (1) CKD (chronic kidney disease) stage 3, GFR 30-59 ml/min: Code(s): N18.30 - Chronic kidney disease, stage 3 unspecified Category: Medical Qualifiers: Chronic kidney disease stage 3 subtype: stage 3a (GFR 45-59) Qualified Code(s): N18.31 - Chronic kidney disease, stage 3a (2) Essential (primary) hypertension: Code(s): I10 - Essential (primary) hypertension Category: Medical (3) Acquired solitary kidney: Code(s): Z90.5 - Acquired absence of kidney Category: Medical Plan Franky had stable renal function for long time. He follows up with Urology very closely. He should continue his current dose of allopurinol. He has not had any gout exacerbations on Allopurinol. He should avoid nonsteroidal inflammatory medications and cut back on sodium in the diet. His blood pressure has been at goal at home. I encouraged to continue to monitoring blood pressure at home. He should maintain good hydration and avoid nonsteroidal anti- inflammatories.I did not make any other medication changes today. Follow-up blood work ordered. Answered all questions Orders: Orders Blood Urea Nitrogen 11/24/24 I10 - Essential (primary) hypertension, N18.31 - Chronic kidney disease, stage 3a, Z90.5 - Acquired absence of kidney Electrolytes 11/24/24 I10 - Essential (primary) hypertension, N18.31 - Chronic kidney disease, stage 3a, Z90.5 - Acquired absence of kidney Creatinine 11/24/24 I10 - Essential (primary) hypertension, N18.31 - Chronic kidney disease, stage 3a, Z90.5 - Acquired absence of kidney Calcium 11/24/24 I10 - Essential (primary) hypertension, N18.31 - Chronic kidney disease, stage 3a, Z90.5 - Acquired absence of kidney Coding Level of Care Code Est Pt Level 4 (27310) Diagnoses Stage 3a chronic kidney disease N18.31 Chronic kidney disease stage 3 subtype: stage 3a (GFR 45-59) Essential (primary) hypertension I10 Acquired solitary kidney Z90.5
--- OUTSIDE RECORDS SUMMARY | 2024-11-24 12:47 | XMS_ITS | Clinical Summary ---
Author Organization [facility] Address [address] [id number] Care Team Providers Care Surgical Asst Name Role Phone Vahid Mcclellan MD Primary [...] age to complete this topic Care Teams Surgical Asst Relationship Specialty Start Date End Date Vahid Mcclellan MD PCP - General Internal Medicine 03/27/23
== END 2024-11-24 11:57 | disposition home or self-care (01) ==
LOC: HO.HKAS 10:50
PROVIDERS: PCP Internal Medicine; Visit Provider Internal Medicine Nephrology
DX: N18.31 Chronic kidney disease, stage 3a (principal); I10 Essential (primary) hypertension; Z90.5 Acquired absence of kidney
CPT/HCPCS: 99214

== ENCOUNTER → 2024-11-24 10:50 | Outpatient (BNVA) | payer MEDICARE, SELFPAY | PROVIDERS: PCP Internal Medicine; Visit Provider Internal Medicine Nephrology | DX: N18.31 Chronic kidney disease, stage 3a (principal); I10 Essential (primary) hypertension; Z90.5 Acquired absence of kidney | CPT/HCPCS: 99212 ==

== ENCOUNTER 2025-03-10 08:48 | Outpatient (REF) | payer MEDICARE, SELFPAY ==
--- OUTSIDE RECORDS SUMMARY | 2025-03-10 09:12 | XMS_ITS | Encounter Summary ---
Author Organization [facility] Address [address] [place] [address] Phone Care Team Providers Care Software Design Engineer Name Role Phone Vahid Mcclellan MD Primary Care Provider [phone] Encounter Details Date Type Department Care Team (Late st Contact Info) Description 11/05/2021 Telephone [facility] [address] [place] [phone] Rivera Murray MD Social History Tobacco Use [...] should be done next. Please advise CB# [phone] documented in this encounter Plan of Treatment Not on file documented as of this encounter Visit Diagnoses Not on filedocumented in this encounter Care Teams Software Design Engineer Relationship Specialty Start Date End Date Vahid Mcclellan MD [address] [place] [address] PCP - General 06/11/20 documented as of this encounter
--- OUTSIDE RECORDS SUMMARY | 2025-03-10 09:12 | XMS_ITS ---
Author Name [facility] Organization Unknown Care Team Organization Name Specialty Phone Email Start Date End [facility] 01/18/2025
--- OUTSIDE RECORDS SUMMARY | 2025-03-10 09:12 | XMS_ITS | Encounter Summary ---
Author Organization [facility] Address [address] [place] [address] Phone Care Team Providers Care Manager Transit Name Role Phone Vahid Mcclellan MD Primary Care Provider [phone] Encounter Details Date Type Department Care Team (Late st Contact Info) Description 11/14/2020 Orders Only [facility] [address] [place] [address] Rivera Murray MD Chronic kidney [...] 10:18 AM EDT) Glucose 121(H) (70-99) MG/DL [facility] BUN 29(H) (8-23) MG/DL [facility] Creatinine 1.9(H) (0.7-1.2) MG/DL [facility] Sodium 142 (133-145) MMOL/L [facility] Potassium 4.5 (3.6-5.2) MMOL/L [facility] Chloride 107 (98-107) MMOL/L [facility] Bicarbonate (CO2) 23 (22-29) MMOL/L [facility] Anion Gap 12 (4-17) [facility] Albumin 4.2 (3.4-4.8) GM/DL [facility] Calcium 9.4 (8.6-10.5) MG/DL [facility] Phosphorus, Serum 3.2 (2.5-4.5) MG/DL [facility] Est GFR Non 32 ML/MIN/1.7 3 M2 [facility] Comment: Creatinine based estimated glomerular filtration rate (eGFR) is calculated using the Chronic Kidney Disease Epidemiology Collaboration (CKD-EPI). The CKD-EPI creatinine equation has not been validated in children (<18 years), women or in some racial or ethnic subgroups other than Caucasians and Americans. EST GFR 37 ML/MIN/1.7 3 M2 [facility] Comment: Creatinine based estimated glomerular filtration rate (eGFR) is calculated using the Chronic Kidney Disease Epidemiology Collaboration (CKD-EPI). The CKD-EPI creatinine equation has not been validated in children (<18 years), women or in some racial or ethnic subgroups other than Caucasians and Americans. Testing performed or reported by [facility], a Service of [facility], [address] [place] [address] Katlin Morales MD, Furnace Checker [facility]# [id number] Blood specimen (specimen) Venous blood / Unknown 02/08/2021 10:18 AM EDT 02/08/2021 10:19 AM EDT us Rivera Murray MD LAB BLOOD ORDERABLES Final Resul t [facility] * (ABNORMAL) CBC (02/08/2021 10:18 AM EDT) White Blood Cells 5.2 (4.0-11.0) K/MM3 [facility] RBC 4.62(L) (4.70-6.10 ) M/MM3 [facility] Hgb 13.4(L) (13.7-17.1 ) GM/DL [facility] Hematocrit 43.2 (40.5-50.0 ) % [facility] MCV 93.5 (80.0-94.0 ) FL [facility] MCH 29.0 (27.0-34.0 ) PG [facility] MCHC 31.0(L) (33.0-37.0 ) g/dL [facility] Platelets 222 (150-460) K/MM3 [facility] RDW-SD 46.0 (<47.0) FL [facility] MPV 10.3 (9.4-12.4) FL [facility] nRBC Count 0.0 #/100 WBC'S [facility] NRBC Absolute 0.0 K/MM3 [facility] Comment: Testing performed or reported by [facility], a Service of [facility], [address] [place] [address] Katlin Morales MD, Furnace Checker [facility]# [id number] Blood specimen (specimen) Venous blood / Unknown 02/08/2021 10:18 AM EDT 02/08/2021 10:19 AM EDT us Rivera Murray MD LAB BLOOD ORDERABLES Final Resul t [facility] documented in this encounter Visit Diagnoses Diagnosis Chronic kidney disease stage 4 (HCC) Hypertensive renal disease History of malignant neoplasm of kidney documented in this encounter Care Teams Manager Transit Relationship Specialty Start Date End Date Vahid Mcclellan MD [address] [place] [phone] PCP - General 06/11/20 documented as of this encounter
--- OUTSIDE RECORDS SUMMARY | 2025-03-10 09:12 | XMS_ITS | Encounter Summary ---
Author Organization [facility] Address [address] [place] [address] Phone Care Team Providers Care Final Expense Agent Name Role Phone Vahid Mcclellan MD Primary Care Provider [phone] Encounter Details Date Type Department Care Team (Late st Contact Info) Description 11/12/2021 Telephone [facility] [address] [facility] [address] [place] [address] Rivera Murray MD Social History [...] from 11/07/21. Please call him back at [phone] Thank you documented in this encounter Plan of Treatment Not on file documented as of this encounter Visit Diagnoses Not on filedocumented in this encounter Care Teams Final Expense Agent Relationship Specialty Start Date End Date Vahid Mcclellan MD [address] [place] [phone] PCP - General 06/11/20 documented as of this encounter
--- OUTSIDE RECORDS SUMMARY | 2025-03-10 09:12 | XMS_ITS | Clinical Summary ---
Author Organization [facility] Address [address] [id number] Care Team Providers Care Workcell Operator Name Role Phone Vahid Mcclellan MD [...] series) 09/01/2020 08/04/2020, 07/14/2020 Influenza Vaccine (#1) 2025 2, 03/07/2022, 05/02/2019, Additional history exists Pneumococcal Vaccine Completed 04/01/2016, 03/27/2015, 07/08/2011 Hepatitis B Vaccines Aged Out No long er eligible based on patient's age to complete this topic RSV Ped < 20 months Aged Out No longe r eligible based on patient's age to complete this topic Care Teams Workcell Operator Relationship Specialty Start Date End Date Vahid Mcclellan MD PCP - General Internal Medicine 03/27/23
--- OUTSIDE RECORDS SUMMARY | 2025-03-10 09:12 | XMS_ITS | Clinical Summary ---
Author Organization [facility] Address [address] [facility] [address] [place] [address] Phone Care Team Providers Care Health Care Analyst Name Role Phone Vahid Mcclellan MD Primary Care Provider [phone] Allergies No known active allergies Medications albuterol [...] negative margins f/u nephro Dr. Bailey Immunizations Immunization Administration Dates Next Due Influenza Split High [...] Date Last Done Comments Influenza Vaccine (#1) 2025 9, 03/15/2018 Pneumococcal Vaccine: 50+ Years Completed 04/01/2016, 03/27/2015, 07/08/2011 Pneumococcal Vaccine: Peds (0 to 5 Years) and At-Risk Patients (6 to 49 Years) Discontinued 04/01/2016, 03/27/2015, 07/08/2011 Hepatitis B Vaccine Aged Out No longe r eligible based on patient's age to complete this topic Insurance [employer] Care Teams Health Care Analyst Relationship Specialty Start Date End Date aVhid Mcclellan MD [address] [place] [phone] PCP - General 06/11/20
[2025-03-10 13:48] LABS: Anion Gap 14 (12-20); Blood Urea Nitrogen 29 mg/dL (9-16); Calcium 9.0 mg/dL (8.4-10.2); Carbon Dioxide 24 mmol/L (22-29); Chloride 108 mmol/L (96-108); Estimated Glomerular Filt Rate 43; Potassium 4.2 mmol/L (3.3-5.1); Sodium 142 mmol/L (135-145)
== END 2025-03-10 08:49 | disposition home or self-care (01) ==
LOC: HO.HKASLDS 08:48
PROVIDERS: PCP Internal Medicine; Visit Provider Internal Medicine Nephrology
DX: I12.9 Hypertensive chronic kidney disease with stage 1 through stage 4 chronic kidney disease, or unspecified chronic kidney disease (principal); N18.31 Chronic kidney disease, stage 3a; Z90.5 Acquired absence of kidney
CPT/HCPCS: 36415; 80051; 82310; 82565; 84520

== ENCOUNTER 2025-03-14 11:15 | Outpatient (AMB) | payer MEDICARE, SELFPAY ==
--- OUTSIDE RECORDS SUMMARY | 2024-03-01 11:18 | XMS_ITS | Encounter Summary ---
Author Organization [facility] [address] Care Team Providers Care Fire Captain Name Role Phone Vahid Mcclellan MD Primary Care Provider [phone] Encounter Details Date Type Department Care Team (Late st Contact Info) Description 03/01/2024 11:18 AM EDT Hospital Encounter TH HISTORIC ENCOUNTERS EASTERN CONVERSION ONLY Kathya Boyer, DO [address] [place] [address] Social History Tobacco Use Types Packs/Day Years Used Date Smoking Tobacco: Former Cigarettes 2 37 0 10/26/1962 - 10/27/1999 Smokeless Tobacco: Never Alcohol Use Standard Drinks/Week Comments No 0 (1 standard drink = 0.6 oz pur e alcohol) Interpersonal Safety Answer Date Record ed Physical Abuse Unrecognized value 09/04/2024 Verbal Abuse Unrecognized value 09/04/2024 Sex and Gender Information Value Date Recorded Sex Assigned at Male 07/04/2024 3:07 PM EST Legal Sex Male 8:26 PM EST Gender Identity Male 07/04/2024 3:07 PM EST Sexual Orientation Straight 07/04/2024 3: 07 PM EST documented as of this encounter Last Filed Vital Signs Vital Sign Reading Time Taken Comments Blood Pressure 129/54 03/01/2024 11:50 AM EDT Sitting Left arm Pulse 72 03/01/2024 11:50 AM EDT Temperature - - Respiratory Rate - - Oxygen Saturation - - Inhaled Oxygen Concentration - - Weight 90.3 kg (199 lb) 03/01/2024 11:5 0 AM EDT Height 180.3 cm (5' 11 ) 09/22/2023 10: 55 AM EDT Body Mass Index 27.75 01/05/2024 1:29 PM EDT documented in this encounter Functional Status * Calculated C-SSRS Risk Score (Lifetime/Recent) Answer Date of Assessment Author No Risk Indicated 11/02/2024 3:18 PM EDT Dar Buitrago RN * [place] Suicide Severity Rating Scale (Screener/Recent Self-Report) Question Answer Date of Assessment Author 1. Wish to be (Past 1 Month) No 11/02/2024 3:18 PM EDT Dar Buitrago RN 2. Non-Specific Active Suicidal Thoughts (Past 1 Month) No 09/04/2024 9:18 AM EDT Jose Cowan RN 6. Suicidal Behavior (Lifetime) No 09/04/2024 9:18 AM EDT Jose Cowan RN documented as of this encounter Progress Notes * Kathya Boyer MD - 03/01/2024 11:30 AM EDT Images from the original note were not included. Progress Notes by Kathya Boyer DO at 03/01/2024 11:30 AM Author: Kathya Boyer DO Service: -- Author Type: Physician Filed: 03/01/2024 1:09 PM Encounter Date: 03/01/2024 Status: Signed Shirt Closer: Kathya Boyer DO (Physician) Hematology/Oncology Follow Up Note Date: 03/01/2024 Subjective Interval history Patient presents today accompanied by his son. Reports he is feeling fair overall. Since last visit he had several emergency room and hospital visits. He had a fall in October, and November he had respiratory failure due to COPD and COVID-19, in November of November he had another fall He is was found to be in rapid A-fib and is on Eliquis twice a day. He notes that he does bruise easily. No bleeding issues. Still having ongoing hot flashes. Feels that he is decreasing muscle mass. Oncologic history. The patient presented with a rising PSA. In October 15, 2022 the PSA was 15.3 ng/mL. Subsequently the patient had an MRI of the prostate performed on November 26, 2022 which showed a large 5.1 cm lesion centered on the right posterior medial peripheral zone, extending to the seminal vesicle, PI-RADS category 5. On January 01, 2023 the patient underwent prostate biopsy which showed prostatic acinar adenocarcinoma in 10 out of 13 cores highest Zahra score 4+5 = 9, grade group 5. The patient underwent a PSMA PET scan on 03/17/2023 which showed metabolic activity in the prostategland with a positive metastatic left internal iliac lymph node and a focal area of metabolic activity in the left iliac bone suspicious for osseous metastatic disease. Subsequently the patient was started on androgen deprivation therapy with bicalutamide. 2 days ago he received his first leuprolide injection The patient states that also in the interim, he was hospitalized at [facility] with left-sided hemiparesis and was found to have an acute infarct involving the right basal ganglia and adjacent white matter, multiple chronic infarcts in the [place] and basal ganglia, he was discharged from [facility] and admitted to [facility] from February 05 to February 24, 2023. And spent several weeks at [facility] rehabilitation. PSA June 2023 went down to 0.9. He continued on leuprolide injections with urology, PSA in August was 0.5. Past Medical History Past Medical History: Diagnosis Date ? Hypertension ? Prostate cancer (HCC) ? Stroke (HCC) Past Surgical History Past Surgical History: Procedure Laterality Date ? COLONOSCOPY ? NEPHRECTOMY Family History No family history on file. Personal and Social History Social History Tobacco Use Smoking Status Former ? Packs/day: 1.00 ? Years: 30.00 ? Additional pack years: 0.00 ? Total pack years: 30.00 ? Types: Cigarettes Smokeless Tobacco Never Social History Substance and Sexual Activity Alcohol Use Not Currently Social History Substance and Sexual Activity Drug Use Never Objective Medications Current Outpatient Medications: ? albuterol (PROVENTIL) (2.5 MG/3ML) 0.083% nebulizer solution, Take 3 mL (2.5 mg total) by nebulization every 6 (six) hours as needed for wheezing., Disp: , Rfl: ? allopurinol (ZYLOPRIM) 100 MG tablet, Take 1 tablet (100 mg total) by mouth daily., Disp: , Rfl: ? amLODIPine (NORVASC) tablet 10 mg, Take 1 tablet (10 mg total) by mouth daily., Disp: , Rfl: ? aspirin 81 MG EC tablet, Take 1 tablet (81 mg total) by mouth daily., Disp: , Rfl: ? atorvastatin (LIPITOR) tablet 40 mg, Take 1 tablet (40 mg total) by mouth daily., Disp: , Rfl: ? bicalutamide (CASODEX) 50 MG tablet, Take 1 tablet (50 mg total) by mouth daily, Disp: , Rfl: ? budesonide-formoterol (SYMBICORT) 160-4.5 MCG/ACT inhaler, Inhale 2 inhalations into the lungs 2 (two) times a day., Disp: , Rfl: ? docusate sodium (COLACE) 100 MG capsule, Take 1 capsule (100 mg total) by mouth 2 (two) times a day., Disp: , Rfl: ? tamsulosin (FLOMAX) 0.4 MG CAPS, Take 2 capsules (0.8 mg total) by mouth daily., Disp: , Rfl: ? tiotropium (SPIRIVA) 18 MCG inhalation capsule, Place 1 capsule (18 mcg total) into inhaler and inhale daily., Disp: , Rfl: Allergies No Known Allergies Physical Exam Vitals: 03/01/24 1150 BP: 129/54 BP Location: Left arm Pulse: 72 Temp: 96.9 ??F (36.1 ??C) TempSrc: Temporal SpO2: 97% Weight: 90.3 kg (199 lb) Performance Status:0 General: Well-nourished elderly gentleman. HENT: no scleral icterus. Neuro: alert and oriented, Labs Imaging CT Pelvis WO - 11/11/23 - [id number] Report Status:Signed CT pelvis without contrast Comparison: None Findings: No acute fracture. No dislocation. Small right hip effusion. Mild arthritic changes of the bilateral hips. Lytic lesion involving the superior endplate of L5, likely a Schmorl's node. Couple of small bone islands are noted within the bony pelvis. The prostate gland is enlarged. There is relative fullness and irregularity of its left lateral margin. Unremarkable urinary bladder. Numerous cysts within the visualized liver. Multiple gallstones within the gallbladder. Colonic diverticulosis without diverticulitis at visualized levels. Impression: 1. No acute bony injury. 2. Small right hip effusion. 3. Enlarged prostate gland with nodule within its left lateral aspect, unchanged since the prior study. 4. Cholelithiasis. This document has been electronically signed by: Catia Gonsalez MD on 11/11/2023 19:45:38 Dictating Physician: CATIA GONSALEZ MD Electronically Signed by: CATIA GONSALEZ MD Dic Date/Time: 11/11/231944 Sign date/Time: 11/11/23 [id number] Assessment & Plan 83 year-old male who presents for follow up of prostate cancer. The patient was found to have a rising PSA biopsy-proven high-grade prostate adenocarcinoma. PSMA PET scan imaging shows concern for metastasis to a left internal iliac lymph node and left iliac bone. PSA has come down from 15.9 now is at 0.4. He has no new systemic symptoms. Imaging of pelvis did not show any new bulky disease. Metastatic prostate adenocarcinoma Mild anemia Hot flashes Continue on leuprolide Monitor for side effects of lupron he receives this at urology Reviewed option to repeat PSMA scan to monitor disease but he declines at this time Ordered labs to be done prior cbc cmp psa and tesosterone prior to next OV If hemoglobin decreases consider additional work up. He does agree if PSA rises to obtain imaging, and we would consider Enzalutamide at that time He does not want to add dual androgen blockade now Return in 5-6 mo for follow up Sign: Nuzhat Boyer DO Hematology/Oncology [facility] [phone] CC: Vahid Mcclellan MD Tyson, Adam MD documented in this encounter Plan of Treatment Upcoming Encounters Date Type Department Care Team (Late st Contact Info) Description 03/16/2025 11:00 AM EDT Office Visit Internal Medicine - [place] [address] [facility] [address] [place] [address] Vahid Mcclellan MD [address] [facility] [address] [place] [address] 03/16/2025 1:40 PM EDT Office Visit [facility] [address] [facility] [address] [place] [phone] Merlene Masrh NP [address] [place] [address] [address] [place] [phone] 05/01/2025 3:45 PM EST Office Visit Pulmonology - [place] [address] [facility] [address] [place] [address] Aishwarya Chapa MD [address] [facility] [address] [place] [address] 05/02/2025 9:45 AM EST Office Visit Orthopedic Surgery - [place] [address] [facility] [address] [place] [phone] Gabe Mendoza DPM [address] [facility] [address] [place] [address] 07/27/2025 2:00 PM EST Ancillary Procedure [facility] [address] [facility] [address] [place] [phone] 08/21/2025 2:15 PM EDT Office Visit [facility] Hematology Oncology [address] [place] [phone] Kathya Boyer, [address] [place] [address] documented as of this encounter Procedures Procedure Name Priority Date/Time Associated Diagnosis Comments ..MISCELLANEOUS REFERENCE LAB TEST 03/01/2024 documented in this encounter Results * Miscellaneous reference lab test (03/01/2024) us Provider Onbase LAB BLOOD ORDERABLES Final Re sult documented in this encounter Visit Diagnoses Not on filedocumented in this encounter Care Teams Fire Captain Relationship Specialty Start Date End Date Vahid Mcclellan MD [address] [address] PCP - General 03/27/23 documented as of this encounter
--- OUTSIDE RECORDS SUMMARY | 2025-03-10 08:00 | XMS_ITS | Encounter Summary ---
Author Organization [facility] [place] [address] Care Team Providers Care Spray Gun Striper Name Role Phone Vahid Mcclellan MD Primary Care Provider [phone] Reason for Visit * Consultation (Routine) - Authorized Specialty Diagnoses / Procedures Referred By Murali vaz Referred To Contact Physical Therapy Diagnoses Frequent falls Brittany Thompson NP 175 [facility] 200 [place] [address] Phone: tel: fax: [facility] [address] [address] Phone: tel: fax: Referral ID Status Reason Start Date Expiration Date Visits Requested Visits Authorized [id number] Authorized Specialty Services Required 12/19/2024 12/19/2025 20 20 Encounter Details Date Type Department Care Team ([facility] st Contact Info) Description 03/10/2025 8:00 AM EDT Treatment [facility] [address] [address] Elizabet Gonzalez PT Frequent falls (Primary Dx) Social History Tobacco Use Types Packs/Day Years [...] Entry Date Author No 05/08/2024 12:28 AM Areglia Seay RN documented in this encounter Progress Notes * Elizabet Gonzalez, PT - 03/10/2025 8:00 AM EDT [facility] - Outpatient PHYSICAL THERAPY DAILY TREATMENT NOTE - OP Date: 03/10/2025 Visit Number: [id number] Patient Name: Franky Marcano : 1940 Age: 84 y.o. Gender: male Diagnosis: ICD-10-CM ICD-9-CM 1. Frequent falls R29.6 V15.88 Date of Onset/Surgery: 01/10/2025 Referring Provider: Brittany Thompson NP Insurance: Payor: [employer] / Plan: [employer] / Product Type: *No Product type* / Patient Identified by: Elizabet Gonzalez PT Language: Malian Medications: Current Outpatient Medications on File Prior to Visit Medication Sig Dispense Refill albuterol HFA (Ventolin HFA) 90 mcg/actuation inhaler Inhale 2 puffs by mouth every 6 (six) hours if needed for wheezing. 6.7 g 11 allopurinoL (ZYLOPRIM) 100 mg tablet Take 1 tablet (100 mg total) by mouth 1 (one) time each day. aspirin 81 mg EC tablet TAKE 1 TABLET BY MOUTH EVERY DAY 90 tablet 1 atorvastatin (LIPITOR) 40 mg tablet TAKE 1 TABLET BY MOUTH EVERYDAY AT BEDTIME 90 tablet 1 docusate sodium (COLACE) 100 mg capsule TAKE 1 CAPSULE BY MOUTH TWICE A DAY NEEDED FOR CONSTIPATION 60 capsule 1 Eliquis 2.5 mg tablet TAKE 1 TABLET BY MOUTH TWICE A DAY 60 tablet 2 pyzdgcpcvpa-qwxukqceclzk-vqqinyinqr (Trelegy Ellipta) 200-62.5-25 mcg inhaler Inhale 1 puff (200 mcg total) by mouth 1 (one) time each day. Rinse mouth with water after use to reduce aftertaste and incidence of candidiasis. Do not swallow. 3 each 3 ipratropium-albuteroL (DUONEB) 0.5-2.5 mg/3 mL nebulizer solution Inhale 3 mL by mouth every 6 (six) hours if needed (dyspnea). leuprolide (LUPRON DEPOT) 22.5 mg syringe kit Inject into the shoulder, thigh, or buttocks 1 (one) time. Every six months per patient, unknown dosage sertraline (ZOLOFT) 25 mg tablet TAKE 1 TABLET BY MOUTH EVERY DAY 90 tablet 1 tamsulosin (FLOMAX) 0.4 mg 24 hr capsule Take 2 capsules (0.8 mg total) by mouth at bedtime. verapamil SR (CALAN-SR) 240 mg CR tablet Take 1 tablet (240 mg total) by mouth at bedtime. Do not crush or chew. 90 each 3 [DISCONTINUED] atorvastatin (LIPITOR) 40 mg tablet TAKE 1 TABLET BY MOUTH EVERYDAY AT BEDTIME 90 tablet 1 No current facility-administered medications on file prior to visit. Allergies: has no known allergies. 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 Chart Reviewed: Yes Pain No pain OBJECTIVE TREATMENT INTERVENTION: Nu step, BLE/BUE, load 5 x 5 minutes standing hip flexor and hamstring stretch, BUE support, 3 x 15 seconds each (B) Hip MMT: Flexion: 3+/5 L, 4-/5 R ABD: 2+/5 L, 3+/5 R Extension: 2-/5 L, 3-/5 R 5XSTS: 37 seconds, CGA to correct posterior lean, pt exhibited significant fatigue following test Sit <-> stand with use of UE support, x 5 with focus on bringing COG over NAVEED before attempting to stand 6MWT: 3 laps, (600 ft), sitting rest x 1 minute) ASSESSMENT/Response to Treatment Fair tolerance to treatment. Pt required rest breaks between therex and during 6MWT. Pt continues to exhibit significant weakness in L hip. Pt reported that he is scheduled to workout daily in the gym at his living facility. Pt is agreeable to discharge on this date with continuation of strengthening therex at the gym. Long-term goals: (8 visits) Pt will be indep with final HEP - MET Pt will increase hip MMT to 3+/5 - NOT MET Pt will perform 5XSTS in < 20 seconds - NOT MET Pt will ambulate 800 feet during 6MWT - NOT MET Patient Education: Education provided: Yes, POC Education Provided To: Patient utilizing Explanation mode(s) of education Response to Education: Verbal Understanding PLAN POC Development/Review: Changes in the Plan of Care; Participants: Patient Total Treatment Time: 30 Modalities: Therapeutic procedures: Therapeutic Exercise Time Entry: 30 Documentation completed by Elizabet Gonzalez PT documented in this encounter Plan of Treatment Upcoming Encounters Date Type Department Care Team (Late st Contact Info) Description 03/16/2025 11:00 AM EDT Office Visit Internal Medicine - [place] 175 [facility] 200 [place] [phone] Vahid Mcclellan MD 175 [facility] 200 [place] [address] 03/16/2025 1:40 PM EDT Office Visit [facility] Cardiology [facility] - [facility] 154 300 [facility] 154 [place] [phone] Merlene Marsh, TRAVIS [address] [place] [address] [address] [place] [phone] 05/01/2025 3:45 PM EST Office Visit Pulmonology - [place] [address] [phone] Aishwarya Chapa MD 175 [facility] 200 [place] [address] 05/02/2025 9:45 AM EST Office Visit Orthopedic Surgery - [place] [address] [phone] Gabe Mendoza DPM 175 [facility] 250 [place] [address] 07/27/2025 2:00 PM EST Ancillary Procedure [facility] - [facility] 154 300 [facility] 154 [place] [phone] 08/21/2025 2:15 PM EDT Office Visit [facility] Hematology Oncology [address] [place] [phone] Kathya Boyer DO 271 [place] [address] documented as of this encounter Visit Diagnoses Diagnosis Frequent falls- Primary Encounter for adjustment or management of cardiac device documented in this encounter Care Teams Spray Gun Striper Relationship Specialty Start Date End Date Vahid Mcclellan MD 175 [place] [address] PCP - General 03/27/23 documented as of this encounter
--- NOTE | 2025-03-14 11:38 | HO.NEPHOV_ITS ---
Vital Signs 03/14/25 11:43 Height 5 ft 11 in Weight 200 lb 2 oz BMI 27.9 BP 134/80 Blood Pressure Location Lt brachial Position Sitting Pulse 84 Pulse Source Pulse Oximeter Pulse Oximetry (%) 95 Oxygen Delivery Method Room Air Intake Visit Reasons: follow up Health Plan Specialist Required: No Accompanied by: Self / Same As Patient Allergies No Known Allergies Allergy (Verified 03/14/25 11:43) HPI Comments Details: Mr. Marcano was seen in follow-up of his chronic kidney disease and hypertension. He follows up with Urology annually due to his history of right renal cell carcinoma and status post nephrectomy in 2014. He also has prostate cancer and is following with Oncologist. His serum creatinine had been stable . He denies any chest pain, shortness of breath, nausea vomiting, diarrhea, pedal edema or any urinary symptoms. He has no orthostasis. He is compliant with adequate fluid intake and avoids nonsteroidal anti-inflammatory medications. 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 His BP is at goal. He is S/P pacemaker for sick sinus syndrome. He feels well. [facility] Medical History Pacemaker Prostate cancer History of renal cell cancer Acquired solitary kidney Essential (primary) hypertension CKD (chronic kidney disease) stage 3, GFR 30-59 ml/min Surgical History History of nephrectomy Social History Alcohol intake: never Patient Tobacco Use Status: Never used Tobacco Review of Systems Const All systems reviewed & are unremarkable except as noted in HPI and below Physical Exam Const General: comfortable and no acute distress Orientation/consciousness: patient oriented x3 HEENT Head: Yes normocephalic Mouth: Normal oral and palatal mucosa present Eyes EOM: EOMs intact bilaterally Neck Neck: Yes supple Resp Auscultation: clear to auscultation bilaterally Cardio Jugular venous distension: no JVD Rate: regular rate GI Palpation (GI): Soft to palpation Auscultation: normal bowel sounds General: Yes no CVA tenderness Back/Spine/Pelvis Back: no CVA tenderness Skin General skin exam: no rashes or lesions noted Neuro General: patient oriented x3 and moves all extremities Extrem General: Yes no pedal edema Results Reviewed Nephrology Results: Hgb, (14.0-18.0) 11.3 g/dl L 11/17/24 WBC, (4.8-10.8) 5.2 X10*3/uL 11/17/24 Plt Count, (160-400) 197 X10*3/uL 11/17/24 Sodium, (135-145) 142 mmol/L 03/10/25 Potassium, (3.3-5.1) 4.2 mmol/L 03/10/25 Chloride, (96-108) 108 mmol/L 03/10/25 Carbon Dioxide, (22-29) 24 mmol/L 03/10/25 BUN, (9-16) 29 mg/dL H 03/10/25 Creatinine, (0.5-1.4) 1.53 mg/dL H 03/10/25 Calcium, (8.4-10.2) 9.0 mg/dL 03/10/25 Phosphorus, (2.7-4.5) 4.2 mg/dL 11/17/24 PTH Intact, (8.7-77.1) 63.6 pg/mL 11/17/24 Assessment & Plan Assessment & Plan (1) CKD (chronic kidney disease) stage 3, GFR 30-59 ml/min: Code(s): N18.30 - Chronic kidney disease, stage 3 unspecified Category: Medical Qualifiers: Chronic kidney disease stage 3 subtype: stage 3a (GFR 45-59) Qualified Code(s): N18.31 - Chronic kidney disease, stage 3a (2) Acquired solitary kidney: Code(s): Z90.5 - Acquired absence of kidney Category: Medical (3) Essential (primary) hypertension: Code(s): I10 - Essential (primary) hypertension Category: Medical Plan Franky had stable renal function for long time. He follows up with Urology very closely. He should continue his current dose of allopurinol. He has not had any gout exacerbations on Allopurinol. He should avoid nonsteroidal inflammatory medications and cut back on sodium in the diet. His blood pressure has been at goal at home. I encouraged to continue to monitoring blood pressure at home. He should maintain good hydration and avoid nonsteroidal anti- inflammatories.I did not make any other medication changes today. Follow-up blood work ordered. Answered all questions Orders: Orders Uric Acid 6 Months I10 - Essential (primary) hypertension, N18.31 - Chronic kidney disease, stage 3a, Z90.5 - Acquired absence of kidney Complete Blood Count Auto Diff 6 Months I10 - Essential (primary) hypertension, N18.31 - Chronic kidney disease, stage 3a, Z90.5 - Acquired absence of kidney Electrolytes 6 Months I10 - Essential (primary) hypertension, N18.31 - Chronic kidney disease, stage 3a, Z90.5 - Acquired absence of kidney Blood Urea Nitrogen 6 Months I10 - Essential (primary) hypertension, N18.31 - Chronic kidney disease, stage 3a, Z90.5 - Acquired absence of kidney Creatinine 6 Months I10 - Essential (primary) hypertension, N18.31 - Chronic kidney disease, stage 3a, Z90.5 - Acquired absence of kidney Calcium 6 Months I10 - Essential (primary) hypertension, N18.31 - Chronic kidney disease, stage 3a, Z90.5 - Acquired absence of kidney Coding Level of Care Code Est Pt Level 4 (55902) Diagnoses Stage 3a chronic kidney disease N18.31 Chronic kidney disease stage 3 subtype: stage 3a (GFR 45-59) Acquired solitary kidney Z90.5 Essential (primary) hypertension I10
[2025-03-14 11:43] VITALS: BP 134/80; PULSE 84; O2SAT 95; BMI 27.9
--- OUTSIDE RECORDS SUMMARY | 2025-03-14 13:38 | XMS_ITS | Clinical Summary ---
Author Organization [facility] Address [address] [place] [address] Phone Care Team Providers Care Accounting Manager Cpa Name Role Phone Vahid Mcclellan MD Primary Care Provider [phone] Allergies No known active allergies Medications ipratropium-al buteroL (DUONEB) 0.5-2.5 mg/3 mL nebulizer [...] (one) time each day. 04/26/20 18 Active leuprolide (LUPRON DEPOT) 22.5 mg syringe kit Inject into the shoulder, thigh, or buttocks 1 (one) time. Every six months per patient, unknown dosage Active verapamil SR (CALAN-SR) 240 mg CR tablet Take 1 tablet (240 mg total) by mouth at bedtime. Do not crush or chew. 90 each 3 07/08/19 25 Active docusate sodium (COLACE) 100 mg capsule TAKE 1 CAPSULE BY MOUTH TWICE A DAY NEEDED FOR CONSTIPATION 60 capsule 1 08/16/19 25 Active fluticasone-um eclidinium-fausto anterol (Trelegy Ellipta) 200-62.5-25 mcg inhaler Inhale 1 puff (200 mcg total) by mouth 1 (one) time each day. Rinse mouth with water after use to reduce aftertaste and incidence of candidiasis. Do not swallow. 3 each 3 11/02/19 25 026 Active aspirin 81 mg EC tablet TAKE 1 TABLET BY MOUTH EVERY DAY 90 tablet 1 12/10/19 25 Active albuterol HFA (Ventolin HFA) 90 mcg/actuation inhaler Inhale 2 puffs by mouth every 6 (six) hours if needed for wheezing. 6.7 g 12/28/19 25 026 Active Eliquis 2.5 mg tablet TAKE 1 TABLET BY MOUTH TWICE A DAY 60 tablet 2 02/10/20 25 Active sertraline (ZOLOFT) 25 mg tabletIndicati ons:Anxiety disorder, unspecified TAKE 1 TABLET BY MOUTH EVERY DAY 90 tablet 1 02/21/20 25 Active atorvastatin (LIPITOR) 40 mg tablet TAKE 1 TABLET BY MOUTH EVERYDAY AT BEDTIME 90 tablet 1 03/08/20 25 Active atorvastatin (LIPITOR) 40 mg tablet TAKE 1 TABLET BY MOUTH EVERYDAY AT BEDTIME 90 tablet 1 07/25/19 25 025 Discontinued sertraline (ZOLOFT) 25 mg tabletIndicati ons:Anxiety disorder, unspecified TAKE 1 TABLET BY MOUTH EVERY DAY 90 tablet 1 07/25/19 25 025 Discontinued Active Problems Problem Noted Date Diagnosed Date Paroxysmal atrial fibrillation ([facility] V24, [facility] V28) 09/09/2024 Assessment & Plan (09/15/2024 1:06 PM EDT): With tachybradycardia syndrome, status post pacemaker. Will continue Eliquis at reduced dose and verapamil. Chest pain, unspecified type 09/04/2024 Assessment & Plan (09/04/2024 4:24 AM EDT): - Presents to the ED with chest pain localized in the area of his pacemaker implant following mechanical fall onto the same area - Initial cardiac enzyme returns abnormal at 130; EKG showing paced rhythm - Admit to telemetry; completely exclude ACS as a contributing cause or complication of his presenting mechanical fall; consider interval echo and input of cardiology prior to discharge Fall at home, initial encounter 09/04/2024 Assessment & Plan (09/04/2024 4:23 AM EDT): - Being hospitalized for mechanical fall at home significant for hitting the chest left shoulder area to the surface - 83-year-old male with multiple medical problems including hypertension; atrial fibrillation complicated by sick sinus syndrome managed with pacemaker; COPD; hypertensive chronic kidney disease; and remote malignancy of the prostate is being hospitalized - EMS to the ED following mechanical fall in which he landed face down onto left chest and shoulder area, at the same location of his pacemaker implant; beginning to feel discomfort at the implant site of the pacemaker and was brought to the ED; - In the ED, initial vital signs significant for elevated blood pressure; twelve-lead EKG showed paced rhythm at 78 bpm; noncontrast brain CT scan showed no acute intracranial hemorrhage; C-spine CT scan showed no subacute fracture or subluxation; chest CT scan without contrast also found normal trauma to the chest and to the posterior abdominal area visualized; screening blood tests significant for abnormal but flat cardiac troponin at 130; BMP 150; CBC significant for mild anemia H/H11.0/35.0 and normal platelet count of 176; comprehensive metabolic panel significant for mild hyperglycemia 119, elevated BUN/creatinine 28/1.50 with an estimated GFR 46; received isotonic saline support in the ED; hospital medicine was asked admit for mechanical fall significant for abnormal cardiac enzymes of unclear clinical relevance - Would admit to hospital medicine for mechanical fall significant for abnormal cardiac enzymes albeit without chest pain, shortness of breath, dizziness, or palpitations; telemetry; completely exclude ACS as a contributing or underlying cause; consider involvement of cardiology in optimized evaluation prior to discharge SSS (sick sinus syndrome) (CMS/HCC V24, CMS/HCC V28) 05/20/2024 VT (ventricular tachycardia) (CMS/HCC V24, [facility]/H CC V28) 05/18/2024 Assessment & Plan (05/20/2024 1:35 PM EST): Ventricular tachycardia versus aberrant conduction. Will review 30-day monitor when return. If he has frequent tachycardia and need a beta-asher, he will need a pacemaker. Hypercoagulable state ([facility] V24) 05/18/2024 Hypertensive chronic kidney disease w stg 1-4/un sp chr kdny 04/25/2024 Chronic kidney disease, unspecified 04/25/2024 Malignant neoplasm of prostate ([facility] V24, [facility] V28) 04/25/2024 Personal history of transien t ischemic [...] symptom. Chest discomfort 04/14/2024 Assessment & Plan (09/15/2024 1:06 PM EDT): Stress test 4 months ago was unremarkable. The symptoms remain atypical. Will continue medical treatment. He will notify me if chest pressure becomes more frequent and lasts longer duration Assessment & Plan (05/20/2024 1:35 PM EST): [...] of his cardiac status. Assessment & Plan (09/15/2024 1:06 PM EDT): Mostly COPD related. Repeat echocardiogram earlier this month showed normal right ventricular size and systolic function and normal right ventricular systolic pressure. Assessment & Plan (05/20/2024 1:35 PM EST): Mostly from pulmonary issue. Abnormal EKG 01/19/2023 Colon polyp 04/19/2018 Hypertension 01/07/2018 Overview (07/27/2023): Last Assessment & Plan: Blood pressure slightly higher today. He was rushing to the office. We will follow-up the blood pressure to decide whether he needs further adjustment of his regimen. Assessment & Plan (09/04/2024 4:25 AM EDT): - Continue outpatient antihypertensives for known hypertension; monitor BP control Hyperlipidemia 01/07/2018 Assessment & Plan (09/15/2024 1:06 PM EDT): Orders: Lipid panel with reflex to direct LDL; Future AST; Future ALT; Future Assessment & Plan (09/04/2024 4:25 AM EDT): - Continue outpatient statin unchanged Leg cramping 01/07/2018 Chronic obstructive pulmonar y disease (CMS/HCC V24, CMS/HCC V28) 01/07/2018 Gout 10/01/2017 CKD (chronic kidney disease) , stage III ([facility] V24, [facility] V28) 10/01/2017 Overview (07/27/2023): Comments: nephro Dr. Bailey Assessment & Plan (09/04/2024 4:26 AM EDT): - Would avoid nephrotoxic intervention and the patient with advanced kidney disease as much as possible - Monitor renal indices radically throughout this hospital stay Lung nodule 10/01/2017 Overview (07/27/2023): Comments: CT 10/28/17 essentially stable subcentimeter pulmonary nodules when compared to 2015 & 2016 Tubular adenoma 12/03/2016 Diverticulosis of colon 04/30/2016 Resolved Problems Problem Noted Date Diagnosed Date Resolved Date Chest pain, unspecified type 05/08/2024 05/09/2024 Chest pain 05/07/2024 05/09/2024 Chronic atrial fibrillation ([facility] V24, [facility] V28) 04/25/2024 05/20/2024 Encounters Date Type Department Care Team Description 03/10/2025 8:00 AM EDT Treatment [facility] [address] [phone] Elizabet Gonzalez, PT Frequent falls (Primary Dx) 03/03/2025 Telephone [facility] [address] [place] [address] Chava Lowe NP 03/01/2025 11:15 AM EDT Treatment [facility] [address] [phone] Magdy Zhu PTA Frequent falls (Primary Dx) 02/27/2025 9:45 AM EDT Office Visit Orthopedic Surgery [facility] 250 175 [facility] 250 [place] [address] Gabe Mendoza, DPM Foot drop, left (Primary Dx); Arthritis of both feet; Hammertoes of both feet; Dermatophytosis, nail 02/22/2025 10:00 AM EDT Treatment [address] [phone] Prasanth Waltres PTA Frequent falls (Primary Dx) 02/21/2025 2:00 PM EDT Office Visit [facility] Hematology Oncology [address] [place] [phone] Kathya Boyer, DO Prostate cancer ([facility]/HCC V24, [facility] V28) (Primary Dx); Encounter for monitoring androgen deprivation therapy 02/15/2025 1:00 PM EDT Treatment [address] [phone] Elizabet Gonzalez, PT Frequent falls (Primary Dx) 02/13/2025 9:00 AM EDT Treatment [address] [phone] Elizabet Gonzalez, PT Frequent falls (Primary Dx) 02/08/2025 1:00 PM EDT Treatment [address] [phone] Magdy Zhu, DIRECT MARKETING REPRESENTATIVE Frequent falls (Primary Dx) 02/01/2025 12:30 PM EDT Treatment [address] [phone] Magdy Zhu, DIRECT MARKETING REPRESENTATIVE Frequent falls (Primary Dx) 01/26/2025 10:45 AM EDT Treatment [address] [phone] Magdy Zhu, DIRECT MARKETING REPRESENTATIVE Frequent falls (Primary Dx) 01/18/2025 Telephone Internal Medicine - [address] [phone] Demetria Rutherford [place] 01/11/2025 2:10 PM EDT Ancillary Procedure [facility] - [facility] [address] [facility] [address] [place] [address] 01/10/2025 9:00 AM EDT Evaluation [facility] [place] 175 [facility] [address] [place] [address] Elizabet Gonzalez, PT Frequent falls 12/28/2024 Telephone Pulmonology - [place] 175 [facility] 200 [place] [address] Aishwarya Chapa MD 12/27/2024 10:00 AM EDT Consult Orthopedic Surgery - [place] 250 175 [facility] 250 [place] [phone] Gabe Mendoza, LUIS M Foot drop, left (Primary Dx); Arthritis of both feet; Hammertoes of both feet; Dermatophytosis, nail 12/13/2024 Telephone Internal Medicine - [place] 175 [facility] 200 [place] [address] Vahid Mcclellan MD from Last 3 Months Immunizations Immunization Administration Dates Next Due Influenza Quadravalent, MDCK , 0.5ml, preservative free (Flucelvax) 6mo and older 05/02/2019 Influenza trivalent, 0.5mL ( Fluzone High-dose) 65yo and older 03/07/2022,03/15/2018 Pfizer SARS-CoV-2 COVID-19, mRNA, LNP-S, preservative free 08/04/2020,07/14/2020 Pneumococcal conjugate 13 va lent (Prevnar 13, PCV13) 2mo and older 03/27/2015 Pneumococcal polysaccharide 23 valent (Pneumovax 23) 2yo and older 07/08/2011 Tdap Tetanus diptheria acell ular pertussis (Boostrix; Adacel) 7yo and older 11/02/2024 Surgical History Surgery Date Site/Laterality Comments NEPHRECTOMY Right PROCEDURE: HISTORICAL NEPHRECTOMY; COMMENT: R radical nephrectomy 05/30/15 Dr. Lindsay. Pathology negative margins f/u nephro Dr. Bailey EYE SURGERY Bilateral PROCEDURE: HISTORICAL EYE SURGERY; COMMENT: right November 2022, left October 2022 Dr. Owen PACEMAKER INSERTION Medical History Medical History Date Comments Colon polyp 04/19/2018 DX:Colon polyp Chronic obstructive pulmonar y disease (CMS/HCC V24, CMS/HCC V28) 01/07/2018 DX:Chronic obstructive pulm onary disease (HCC) CKD (chronic kidney disease) , stage III (CMS/HCC V24, CMS/HCC V28) 10/01/2017 DX:CKD (chronic kidney disease), stage III (HCC); COMMENT: Comments: nephdarlin Bailey Diverticulosis of colon 04/30/2016 DX:Diver ticulosis [...] to 2015 & 2016 Tubular adenoma 12/03/2016 DX:Tubular adeno ma Leg [...] Sign Reading Time Taken Comments Blood Pressure 164/87 02/21/2025 1:58 PM EDT Pulse 87 02/21/2025 1:58 PM EDT Temperature 36.7 C (98 F) 02/21/2025 1:58 PM EDT Respiratory Rate 17 11/02/2024 5:34 PM EDT Oxygen Saturation 96% 02/21/2025 1:58 PM EDT Inhaled Oxygen Concentration - - Weight 88.9 kg (196 lb) 02/21/2025 1:58 PM EDT Height 180.3 cm (5' 11 ) 02/21/2025 1:58 PM EDT Body Mass Index 27.34 02/21/2025 1:58 PM EDT Plan of Treatment Upcoming Encounters Date Type Department Care Team (Late st Contact Info) Description 03/16/2025 11:00 AM EDT Office Visit Internal Medicine - [place] [address] [phone] Vahid Mcclellan MD [address] [address] 03/16/2025 1:40 PM EDT Office Visit [facility] Cardiology [facility] - [facility] 154 [address] [facility] 154 [place] [phone] Merlene Marsh, TRAVIS [address] [place] [address] [facility] [address] [place] [address] 05/01/2025 3:45 PM EST Office Visit Pulmonology - [address] [phone] Aishwarya Chapa MD [address] [address] 05/02/2025 9:45 AM EST Office Visit Orthopedic Surgery - [place] [address] [phone] Gabe Mendoza DPM [address] [address] 07/27/2025 2:00 PM EST Ancillary Procedure [facility] Cardiology [facility] - [facility] 154 [address] [facility] 154 [place] [phone] 08/21/2025 2:15 PM EDT Office Visit [facility] Hematology Oncology [address] [place] [address] Kathya Boyer, [address] [place] [address] Health Maintenance Due Date Last Done Comments Zoster Vaccines (1 of 2) 10[birth year]24/1959 RSV Immunization Adult Patients (1 - 1-dose 75+ series) 10/24/2014 Medicare Annual Wellness Visit 05/03/2022 Social Influencers of Health Screening 05/03/2022 Depression Screening 06/01/2024 COVID-19 Vaccine ( season) 2025 03/20/2021, 08/04/2020, 07/14/2020 Influenza Vaccine (#1) 2025 , 03/07/2022, 06/03/2021, Additional history exists Falls Risk Assessment 09/04/2025 09/04/2024 Hypertension/CHF/CAD Annual BMP Blood Test 01/27/2026 01/27/2025, 11/02/2024, 09/03/2024, Additional history exists Cholesterol Screening (Lipid Panel) 09/22/2029 09/22/2024, 05/08/2024, 10/30/2023, Additional history exists DTaP,Tdap,and Td Vaccines (2 - Td or Tdap) 11/02/2034 11/02/2024 Pneumococcal Vaccine: 50+ Years Completed 04/01/2016, 03/27/2015, 07/08/2011 HIB Vaccines Aged Out No longer eligi [...] age to complete this topic Meningococcal B Vaccine Aged Out No l onger eligible based on patient's age to complete this topic RSV Immunization Patients Under 20 months Aged Out No longer eligible based on patient's age to complete this topic Varicella Vaccines Aged Out No longer eligible based on patient's age to complete this topic Medical Devices Implanted Type Area Health Aid Device Identifier Shelf Expiration Date Model / Serial / Lot Lead Pcmkr Capsjesus Shafferus 52cm - [id number] - [id number] Implanted:Qty: 1 on 07/08/2024 by Howard Saavedra MD at [facility] Cardiac Lead N/A: Heart [employer] - CARDIAC RHYTH-CRDM [id number] 08/05/2025 [id number] / [id number] / Lead Ipg Select Secure 69cm Catheter Delivered Lead - [id number] - [id number] Implanted:Qty: 1 on 07/08/2024 by Howard Saavedra MD at [facility] Cardiac Lead N/A: Heart [employer] - CARDIAC RHYTH-CRDM [id number] 02/04/2026 [id number] / [id number] / Pacemaker Cardiac Anjali Xt Dr Espinosa - [id number] - [id number] Implanted:Qty: 1 on 07/08/2024 by Howard Saavedra MD at [facility] Cardiac Pacemaker Left: Chest Wall [employer] - CARDIAC RHYTH-CRDM [id number] 07/29/2025 [id number] / [id number] / Medt-Card [place] Xt Dr Espinosa [id number] Implanted:11/2024 (Quantity not on file) Cardiac Pacemaker [employer] - CARDIAC RHYTH-CRDM ANJALI XT DR ESPINOSA / [id number] / Medt-Card Anjali Xt Dr Espinosa [id number] Implanted:11/2024 (Quantity not on file) Cardiac Pacemaker [employer] - CARDIAC RHYTH-CRDM ANJALI XT DR ESPINOSA [id number] / [id number] / Procedures Procedure Name Priority Date/Time Associated Diagnosis Comments CBC WITH AUTO DIFFERENTIAL Routine 01/27/2025 8:56 AM EDT Malignant neoplasm of prostate (CMS/HCC V24, CMS/HCC V28) PROSTATE SPECIFIC ANTIGEN DIAGNOSTIC Routine 01/27/2025 8:56 AM EDT Malignant neoplasm of prostate (CMS/HCC V24, CMS/HCC V28) COMPREHENSIVE METABOLIC PANEL Routine 01/27/2025 8:56 AM EDT Malignant neoplasm of prostate (CMS/HCC V24, CMS/HCC V28) CBC AND DIFFERENTIAL Routine 01/27/2025 8:56 AM EDT Malignant neoplasm of prostate (CMS/HCC V24, CMS/HCC V28) CARDIAC DEVICE CHECK- REMOTE- MURJ Routine 01/11/2025 2:05 PM EDT LIPID PANEL WITH REFLEX TO DIRECT LDL Routine 09/22/2024 9:06 AM EDT Hyperlipidemia, unspecified hyperlipidemia type from Last 3 Months or Most Recently Relevant to Health Maintenance Results * Prostate specific antigen diagnostic (01/27/2025 8:56 AM EDT) PSA 0.21 0.00 - 4.00 ng/mL LAB CHEMISTRY METHOD 01/27/2025 12:56 PM EDT [facility] Blood Venous blood specimen / Unknown Venipuncture / Unknown 01/27/2025 8:56 AM EDT 01/27/2025 11:16 AM EDT Narrative [facility] - 01/27/2025 12:56 PM EDT The Siemens Advia Centaur Chemiluminescent Immunoassay is used. Results obtained with different assay methods or kits cannot be used interchangeably. Results cannot be interpreted as absolute evidence of the presence or absence of malignant disease. us Kathya Boyer DO LAB BLOOD ORDERABLES Final Result [facility] [address] [place] [address], * (ABNORMAL) CBC auto differential (01/27/2025 8:56 AM EDT) [facility] WBC 6.3 4.8 - 10.8 K/mcL LAB HEMETOLOGY METHOD 01/27/2025 11:24 AM [facility] RBC 3.80(L) 4.50 - 5.50 M/mcL LAB HEMETOLOGY METHOD 01/27/2025 11:24 AM [facility] Hemoglobin 11.6(L) 13.5 - 17.5 g/dL LAB HEMETOLOGY METHOD 01/27/2025 11:24 AM [facility] Hematocrit 37.0(L) 42.0 - 54.0 % LAB HEMETOLOGY METHOD 01/27/2025 11:24 AM [facility] MCV 96.9 79.0 - 98.0 FL LAB HEMETOLOGY METHOD 01/27/2025 11:24 AM [facility] MCH 30.4 27.0 - 32.0 pcg LAB HEMETOLOGY METHOD 01/27/2025 11:24 AM [facility] MCHC 31.4(L) 32.0 - 37.0 g/dL LAB HEMETOLOGY METHOD 01/27/2025 11:24 AM [facility] RDW 13.2 11.0 - 15.0 % LAB HEMETOLOGY METHOD 01/27/2025 11:24 AM [facility] Platelets 191 130 - 400 K/mcL LAB HEMETOLOGY METHOD 01/27/2025 11:24 AM [facility] MPV 9.9 7.0 - 11.0 FL LAB HEMETOLOGY METHOD 01/27/2025 11:24 AM [facility] NRBC 0.0 <1.0 % LAB HEMETOLOGY METHOD 01/27/2025 11:24 AM [facility] NRBC Absolute 0.00 <0.10 K/mcL LAB HEMETOLOGY METHOD 01/27/2025 11:24 AM [facility] Neutrophils Relative 65.3 % LAB HEMETOLOGY METHOD 01/27/2025 11:24 AM [facility] Lymphocytes Relative 16.3 % LAB HEMETOLOGY METHOD 01/27/2025 11:24 AM [facility] Monocytes Relative 13.8 % LAB HEMETOLOGY METHOD 01/27/2025 11:24 AM [facility] Eosinophils Relative 3.0 % LAB HEMETOLOGY METHOD 01/27/2025 11:24 AM [facility] Basophils Relative 0.5 % LAB HEMETOLOGY METHOD 01/27/2025 11:24 AM [facility] Immature Granulocytes Relative 1.1 % LAB HEMETOLOGY METHOD 01/27/2025 11:24 AM [facility] Neutrophils Absolute 4.11 1.50 - 7.00 K/mcL LAB HEMETOLOGY METHOD 01/27/2025 11:24 AM [facility] Lymphocytes Absolute 1.03 1.00 - 5.00 K/mcL LAB HEMETOLOGY METHOD 01/27/2025 11:24 AM [facility] Monocytes Absolute 0.87 0.20 - 1.00 K/mcL LAB HEMETOLOGY METHOD 01/27/2025 11:24 AM [facility] Eosinophils Absolute 0.19 0.00 - 0.50 K/mcL LAB HEMETOLOGY METHOD 01/27/2025 11:24 AM [facility] Basophils Absolute 0.03 0.00 - 0.20 K/mcL LAB HEMETOLOGY METHOD 01/27/2025 11:24 AM [facility] Immature Granulocytes Absolute 0.07(H) 0.00 - 0.03 K/mcL LAB HEMETOLOGY METHOD 01/27/2025 11:24 AM [facility] Blood Venous blood specimen / Unknown Venipuncture / Unknown 01/27/2025 8:56 AM EDT 01/27/2025 11:16 AM EDT Kathya Jackson Merlin DO LAB BLOOD ORDERABLES Final Result [facility] [address] [place] [address], * (ABNORMAL) Comprehensive metabolic panel (01/27/2025 8:56 AM EDT) Sodium 139 133 - 145 mmol/L LAB CHEMISTRY METHOD 01/27/2025 11:37 AM [facility] Potassium 4.5 3.5 - 5.5 mmol/L LAB CHEMISTRY METHOD 01/27/2025 11:37 AM [facility] Chloride 106 96 - 110 mmol/L LAB CHEMISTRY METHOD 01/27/2025 11:37 AM [facility] CO2 27 21 - 32 mmol/L LAB CHEMISTRY METHOD 01/27/2025 11:37 AM [facility] Anion Gap 6 3 - 11 LAB CHEMISTRY METHOD 01/27/2025 11:37 AM [facility] Glucose 104(H) 70 - 100 mg/dL LAB CHEMISTRY METHOD 01/27/2025 11:37 AM [facility] BUN 34(H) 5 - 25 mg/dL LAB CHEMISTRY METHOD 01/27/2025 11:37 AM [facility] Creatinine 1.56(H) 0.70 - 1.30 mg/dL LAB CHEMISTRY METHOD 01/27/2025 11:37 AM [facility] eGFR 43(L) >=60 mL/min/1. 73m2 LAB CHEMISTRY METHOD 01/27/2025 11:37 AM [facility] Comment:Calculation based on the Chronic Kidney Disease Epidemiology Collaboration (CKD-EPI) equation refit without adjustment for race. BUN/Creatinine Ratio 21.8 LAB CHEMISTRY METHOD 01/27/2025 11:37 AM [facility] Calcium 9.0 8.5 - 10.5 mg/dL LAB CHEMISTRY METHOD 01/27/2025 11:37 AM [facility] AST (SGOT) 21 10 - 42 unit/L LAB CHEMISTRY METHOD 01/27/2025 11:37 AM [facility] ALT (SGPT) 19 10 - 60 unit/L LAB CHEMISTRY METHOD 01/27/2025 11:37 AM [facility] Alkaline Phosphatase 96 42 - 121 unit/L LAB CHEMISTRY METHOD 01/27/2025 11:37 AM [facility] Total Protein 6.7 6.0 - 8.0 g/dL LAB CHEMISTRY METHOD 01/27/2025 11:37 AM [facility] Albumin 3.5 3.2 - 5.0 g/dL LAB CHEMISTRY METHOD 01/27/2025 11:37 AM [facility] Total Bilirubin 0.5 0.0 - 1.4 mg/dL LAB CHEMISTRY METHOD 01/27/2025 11:37 AM [facility] Blood Venous blood specimen / Unknown Venipuncture / Unknown 01/27/2025 8:56 AM EDT 01/27/2025 11:16 AM EDT us Kathya Boyer DO LAB BLOOD ORDERABLES Final Result [facility] [address] [place] [address], * Cardiac device check - Remote- MURJ (01/11/2025 2:05 PM EDT) Date Time Interrogation Session [id number] CV DEVICE CHECK Type Interrogation Session Remote CV DEVICE CHECK Implantable Pulse Generator Health Aid MDT CV DEVICE CHECK Implantable Pulse Generator Type IPG CV DEVICE CHECK Implantable Pulse Generator Model [place] XT DR MRI [id number] CV DEVICE CHECK Implantable Pulse Generator Serial Number [id number] CV DEVICE CHECK Implantable Pulse Generator Implant Date [id number] CV DEVICE CHECK Battery Remaining Longevity 132.0 CV DEVICE CHECK Battery Voltage 3.070 CV D EVICE CHECK Battery DIRECTOR OF MARKETING ANALYTICS Trigger 2.625 CV DEVICE CHECK Battery Status Middle of Service CV DEVICE CHECK [place] Statistic RA Percent Paced 62.30 CV DEVICE CHECK [place] Statistic RV Percent Paced 99.72 CV DEVICE CHECK Atrial Tachy Statistic AT/AF [place] Percent 0.70 CV DEVICE CHECK Lead Channel Sensing Intrinsic Amplitude 1.875 CV DEVICE CHECK Lead Channel Setting Sensing Sensitivity 0.30 CV DEVICE CHECK Lead Channel Impedance Value 551 CV DEVICE CHECK Lead Channel Pacing Threshold Amplitude 0.875 CV DEVICE CHECK Lead Channel Pacing Threshold Pulse Width 0.4 CV DEVICE CHECK Lead Channel RA Pacing Threshold Date 2025-01-03 CV DEVICE CHECK Lead Channel Setting Pacing Amplitude 2.000 CV DEVICE CHECK Lead Channel Setting Pacing Pulse Width 0.4 CV DEVICE CHECK Lead Channel Sensing Intrinsic Amplitude 27.125 CV DEVICE CHECK Lead Channel Setting Sensing Sensitivity 0.90 CV DEVICE CHECK Lead Channel Impedance Value 418 CV DEVICE CHECK Lead Channel Pacing Threshold Amplitude 0.500 CV DEVICE CHECK Lead Channel Pacing Threshold Pulse Width 0.4 CV DEVICE CHECK Lead Channel RV Pacing Threshold Date 2025-01-03 CV DEVICE CHECK Lead Channel Setting Pacing Amplitude 2.000 CV DEVICE CHECK Lead Channel Setting Pacing Pulse Width 0.4 CV DEVICE CHECK Clinton Setting Mode (NBG Code) DDDR CV DEVICE CHECK Clinton Setting Lower Rate Limit 60 CV DEVICE CHECK Clinton Setting AT Mode Switch Rate 171 CV DEVICE CHECK [place] Setting Maximum Tracking Rate 130 CV DEVICE CHECK [place] Setting Maximum Sensor Rate 130 CV DEVICE CHECK [place] Setting PAV Delay 180 CV DEVICE CHECK [place] Setting CHEMO Delay 150 CV DEVICE CHECK Zone Setting Type Category AT/AF CV DEVICE CHECK Rate 171 CV DEVICE CHECK Therapies Some Rx Off CV DEVIC E CHECK Zone Setting Status Monitor CV DEVICE CHECK Zone ID 2 CV DEVICE CHECK Zone Setting Type Category VT CV DEVICE CHECK Rate 150 CV DEVICE CHECK Zone Setting Status ENABLED CV DEVICE CHECK Zone ID 6 CV DEVICE CHECK Date of Service 2025-01-14 CV DEVICE CHECK Anatomical Region Laterality Modality Device Interroga tion 01/04/2025 1:50 AM EDT Impressions 01/11/2025 1:56 PM EDT Normal Remote: No Events * Normal Device Function * Alerts or events: None * Battery: OK, 11.00 yrs * Sensing, impedance and thresholds reviewed * Programmed parameters reviewed * Presenting rhythm reviewed * Heart Rate Histograms reviewed * No significant changes noted Additional Notes: Stable Pendleton AF Narrative Procedure Note Howard Saavedra MD - 01/11/2025 IMPRESSION: Normal Remote: No Events * Normal Device Function * Alerts or events: None * Battery: OK, 11.00 yrs * Sensing, impedance and thresholds reviewed * Programmed parameters reviewed * Presenting rhythm reviewed * Heart Rate Histograms reviewed * No significant changes noted Additional Notes: Stable Pendleton AF Howard Saavedra MD CV IMPLANTABLE CARDIAC DEVICE PROCEDURES Final Result * Lipid panel with reflex to direct LDL (09/22/2024 9:06 AM EDT) Cholesterol 132 0 - 200 mg/dL LAB CHEMISTRY METHOD 09/22/2024 12:18 PM [facility] Triglycerides 74 0 - 150 mg/dL LAB CHEMISTRY METHOD 09/22/2024 12:18 PM [facility] HDL 53 >=40 mg/dL LAB CHEMISTRY METHOD 09/22/2024 12:18 PM [facility] LDL Calculated 64 0 - 100 mg/dL LAB CHEMISTRY METHOD 09/22/2024 12:18 PM [facility] VLDL Cholesterol Barry 14.8 mg/dL LAB CHEMISTRY METHOD 09/22/2024 12:18 PM [facility] Non HDL Chol. (LDL+VLDL) 79 <145 mg/dL LAB CHEMISTRY METHOD 09/22/2024 12:18 PM [facility] Chol/HDL Ratio 2.5 0.0 - 4.4 LAB CHEMISTRY METHOD 09/22/2024 12:18 PM [facility] Blood Venous blood specimen / Unknown Venipuncture / Unknown 09/22/2024 9:06 AM EDT 09/22/2024 11:12 AM EDT us Ting Avila MD LAB BLOOD ORDERABLES Final Resul t [facility] [address] [place] [address], from Last 3 Months or Most Recently Relevant to Health Maintenance Insurance [employer] Advance Directives Documents on File Type Date Recorded 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 Do not modify or discontinue any currently active code status orders. * Full Code - Default Date Activated Date Inactivated Comments 05/07/2024 9:42 [...] Alternate Health Car e Agent Care Teams Accounting Manager Cpa Relationship Specialty Start Date End Date Vahid Mcclellan MD [address] [place] [address] PCP - General 03/27/23
--- OUTSIDE RECORDS SUMMARY | 2025-03-14 13:38 | XMS_ITS | Clinical Summary ---
Author Organization [facility] Address [address] [id number] Care Team Providers Care Screen Printing Machine Loader Unloader Name Role Phone Vahid Mcclellan MD Primary [...] Tdap) 10/24/1959 Shingrix-Zoster Vaccine (1 of 2) 10/24/1989 Fall Risk Assessment 10/24/2004 RSV Adult > 60+ Yrs or (1 - 1-dose 75+ series) 10/24/2014 COVID-19 Vaccine ( season) 2025 08/04/2020, 07/14/2020 Influenza Vaccine (#1) 2025 2, 03/07/2022, 05/02/2019, Additional history exists Pneumococcal Vaccine Completed 04/01/2016, 03/27/2015, 07/08/2011 Hepatitis B Vaccines Aged Out No long er eligible based on patient's age to complete this topic RSV Ped < 20 months Aged Out No longe r eligible based on patient's age to complete this topic Care Teams Screen Printing Machine Loader Unloader Relationship Specialty Start Date End Date Vahid Mcclellan MD PCP - General Internal Medicine 03/27/23
--- OUTSIDE RECORDS SUMMARY | 2025-03-14 13:38 | XMS_ITS | Clinical Summary ---
Author Organization [facility] Address [address] [facility] [address] [place] [address] Phone Care Team Providers Care Cisco Network Architect Name Role Phone Vahid Mcclellan MD Primary Care Provider [phone] Allergies No known active allergies Medications albuterol [...] Insurance [employer] Care Teams Cisco Network Architect Relationship Specialty Start Date End Date Vahid Mcclellan MD [address] [place] [id number] PCP - General 06/11/20
--- OUTSIDE RECORDS SUMMARY | 2025-03-14 13:39 | XMS_ITS | Encounter Summary ---
Author Organization [facility] Address [address] [place] [address] Phone Care Team Providers Care Family Services Manager Name Role Phone Vahid Mcclellan MD Primary Care Provider [phone] Encounter Details Date Type Department Care Team (Late st Contact Info) Description 11/12/2021 Telephone [facility] [address] [facility] [address] [place] [address] Rivera Murray MD Social History [...] from 11/07/21. Please call him back at [phone] Thank you documented in this encounter Plan of Treatment Not on file documented as of this encounter Visit Diagnoses Not on filedocumented in this encounter Care Teams Family Services Manager Relationship Specialty Start Date End Date Vahid Mcclellan MD [address] [place] [phone] PCP - General 06/11/20 documented as of this encounter
--- OUTSIDE RECORDS SUMMARY | 2025-03-14 13:39 | XMS_ITS | Encounter Summary ---
Author Organization [facility] Address [address] [place] [address] Phone Care Team Providers Care Product Manufacturing Professional Name Role Phone Vahid Mcclellan MD Primary Care Provider [phone] Encounter Details Date Type Department Care Team (Late st Contact Info) Description 11/05/2021 Telephone [facility] [address] [place] [phone] Rivera Murray MD Social History Tobacco Use [...] should be done next. Please advise CB# [phone] documented in this encounter Plan of Treatment Not on file documented as of this encounter Visit Diagnoses Not on filedocumented in this encounter Care Teams Product Manufacturing Professional Relationship Specialty Start Date End Date Vahid Mcclellan MD [address] [place] [phone] PCP - General 06/11/20 documented as of this encounter
--- OUTSIDE RECORDS SUMMARY | 2025-03-14 13:39 | XMS_ITS ---
Author Organization [facility] Address [address] [place] [address] Phone Care Team Providers Care Core Laying Machine Operator Name Role Phone Vahid Mcclellan MD Primary Care Provider [phone] Active Problems Problem Noted Date Diagnosed Date Paroxysmal atrial fibrillation (CMS/HCC V24, CMS /HCC V28) 09/09/2024 Assessment & Plan (09/15/2024 1:06 [...] prior to discharge SSS (sick sinus syndrome) ([facility] V24, [facility] V28) 05/20/2024 VT (ventricular tachycardia) ([facility] V24, [facility] V28) 05/18/2024 Assessment & Plan (05/20/2024 1:35 PM EST): Ventricular tachycardia versus aberrant conduction. Will review 30-day monitor when return. If he has frequent tachycardia and need a beta-asher, he will need a pacemaker. 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 [...] adenoma 12/03/2016 Diverticulosis of colon 04/30/2016 Current Treatment and Therapy Plans No current plan information found. Past Treatment and Therapy Plans No past plan information found. Lifetime Dose Tracking * Chemical Lifetime Dose Automatic Entry Manual Entr y Radiation 205 mGy 0 mGy 205 mGy Fluoro Time 8.1 minutes 0 minutes 8.1 minutes Resolved Problems Problem Noted Date Diagnosed Date Resolved Date Chest pain, unspecified type 05/08/2024 05/09/2024 Chest pain 05/07/2024 05/09/2024 Chronic atrial fibrillation (CMS/HCC V24, CMS/HCC V28) 04/25/2024 05/20/2024
--- OUTSIDE RECORDS SUMMARY | 2025-03-14 13:39 | XMS_ITS | Encounter Summary ---
Author Organization [place] [address] Care Team Providers Care Physician/Ophthalmologist Name Role Phone Vahid Mcclellan MD Primary Care Provider [phone] Encounter Details Date Type Department Care Team (Late st Contact Info) Description 10/31/2024 Lab Requisition [facility] - Main Lab [address] [facility] [address] [facility] [place] [address] Hattie Lara, BLAKE [address] [address] Malignant neoplasm of prostate (CMS/HCC V24, CMS/HCC V28) Social History Tobacco Use Types Packs/Day Years [...] 05/08/2024 12:28 AM Argelia Seay RN * Calculated C-SSRS Risk Score (Lifetime/Recent) Answer Date of Assessment Author No Risk Indicated 11/02/2024 3:18 PM EDT Dar Buitrago RN * [place] Suicide Severity Rating Scale (Screener/Recent Self-Report) Question Answer Date of Assessment Author 1. Wish to be (Past 1 Month) No 025 3:18 PM EDT Dar Buitrago RN documented as of this encounter Mental [...] AM EDT Office Visit Internal Medicine - [place] [address] [facility] 200 [place] [address] Vahid Mcclellan MD 175 [facility] 200 [place] [address] 03/16/2025 1:40 PM EDT Office Visit [facility] Cardiology [facility] [address] [facility] 154 [place] [phone] Merlene Marsh NP [address] [place] [address] [address] [place] [phone] 05/01/2025 3:45 PM EST Office Visit Pulmonology - [place] 175 [facility] 200 [place] [phone] Aishwarya Chapa MD 175 [facility] 200 [place] [address] 05/02/2025 9:45 AM EST Office Visit Orthopedic Surgery - [place] 250 [address] [facility] 250 [place] [phone] Gabe Mendoza DPM 175 [facility] [address] [place] [address] 07/27/2025 2:00 PM EST Ancillary Procedure [facility] 154 [address] [facility] 154 [place] [phone] 08/21/2025 2:15 PM EDT Office Visit [facility] Hematology Oncology [address] [place] [phone] Kathya Boyer, [address] [place] [address] documented as of this encounter Procedures Procedure Name Priority Date/Time Associated Diagnosis Comments PROSTATE SPECIFIC ANTIGEN DIAGNOSTIC Routine 10/31/2024 10:50 AM EDT Malignant neoplasm of prostate (CMS/HCC V24, CMS/HCC V28) documented in this encounter Results * Prostate specific antigen diagnostic (10/31/2024 10:50 AM EDT) PSA 0.27 0.00 - 4.00 ng/mL LAB CHEMISTRY METHOD 10/31/2024 2:12 PM EDT [facility] Blood Venous blood specimen / Unknown 10/31/2024 10:50 AM EDT 10/31/2024 1:21 PM EDT Narrative [facility] - 10/31/2024 2:12 PM EDT The Siemens Advia Centaur Chemiluminescent Immunoassay is used. Results obtained with different assay methods or kits cannot be used interchangeably. Results cannot be interpreted as absolute evidence of the presence or absence of malignant disease. us Hattie LOZANO LAB BLOOD ORDERABLES Final Resul t [facility] [address] [place] [address], documented in this encounter Visit Diagnoses Diagnosis Malignant neoplasm of prostate (CMS/HCC V24, CMS/HCC V28) Malignant neoplasm of prostate Encounter for adjustment or management of cardiac device documented in this encounter Care Teams Physician/Ophthalmologist Relationship Specialty Start Date End Date Vahid Mcclellan MD [address] [address] PCP - General 03/27/23 documented as of this encounter
--- OUTSIDE RECORDS SUMMARY | 2025-03-14 13:39 | XMS_ITS | Encounter Summary ---
Author Organization [facility] Address [address] [place] [address] Phone Care Team Providers Care Criminal Attorney Name Role Phone Vahid Mcclellan MD Primary Care Provider [phone] Encounter Details Date Type Department Care Team (Late st Contact Info) Description 11/14/2020 Orders Only [facility] [address] [place] [address] Rivera Murray MD Chronic kidney [...] 10:18 AM EDT) Glucose 121(H) (70-99) MG/DL [facility] BUN 29(H) (8-23) MG/DL [facility] Creatinine 1.9(H) (0.7-1.2) MG/DL [facility] Sodium 142 (133-145) MMOL/L [facility] Potassium 4.5 (3.6-5.2) MMOL/L [facility] Chloride 107 (98-107) MMOL/L [facility] Bicarbonate (CO2) 23 (22-29) MMOL/L [facility] Anion Gap 12 (4-17) [facility] Albumin 4.2 (3.4-4.8) GM/DL [facility] Calcium 9.4 (8.6-10.5) MG/DL [facility] Phosphorus, Serum 3.2 (2.5-4.5) MG/DL [facility] Est GFR Non 32 ML/MIN/1.7 3 M2 [facility] Comment: Creatinine based estimated glomerular filtration rate (eGFR) is calculated using the Chronic Kidney Disease Epidemiology Collaboration (CKD-EPI). The CKD-EPI creatinine equation has not been validated in children (<18 years), women or in some racial or ethnic subgroups other than Caucasians and Americans. EST GFR 37 ML/MIN/1.7 3 M2 [facility] Comment: Creatinine based estimated glomerular filtration rate (eGFR) is calculated using the Chronic Kidney Disease Epidemiology Collaboration (CKD-EPI). The CKD-EPI creatinine equation has not been validated in children (<18 years), women or in some racial or ethnic subgroups other than Caucasians and Americans. Testing performed or reported by [facility], a Service of [facility], [address] [place] [address] Katlin Morales MD, Barrel Bander [facility]# [id number] Blood specimen (specimen) Venous blood / Unknown 02/08/2021 10:18 AM EDT 02/08/2021 10:19 AM EDT us Rivera Murray MD LAB BLOOD ORDERABLES Final Resul t [facility] * (ABNORMAL) CBC (02/08/2021 10:18 AM EDT) White Blood Cells 5.2 (4.0-11.0) K/MM3 [facility] RBC 4.62(L) (4.70-6.10 ) M/MM3 [facility] Hgb 13.4(L) (13.7-17.1 ) GM/DL [facility] Hematocrit 43.2 (40.5-50.0 ) % [facility] MCV 93.5 (80.0-94.0 ) FL [facility] MCH 29.0 (27.0-34.0 ) PG [facility] MCHC 31.0(L) (33.0-37.0 ) g/dL [facility] Platelets 222 (150-460) K/MM3 [facility] RDW-SD 46.0 (<47.0) FL [facility] MPV 10.3 (9.4-12.4) [place] [facility] nRBC Count 0.0 #/100 WBC'S [facility] NRBC Absolute 0.0 K/MM3 [facility] Comment: Testing performed or reported by [facility], a Service of [facility], [address] [place] [address] Katlin Morales MD, Barrel Bander [facility]# [id number] Blood specimen (specimen) Venous blood / Unknown 02/08/2021 10:18 AM EDT 02/08/2021 10:19 AM EDT us Rivera Murray MD LAB BLOOD ORDERABLES Final Resul t [facility] documented in this encounter Visit Diagnoses Diagnosis Chronic kidney disease stage 4 (HCC) Hypertensive renal disease History of malignant neoplasm of kidney documented in this encounter Care Teams Criminal Attorney Relationship Specialty Start Date End Date Vahid Mcclellan MD [address] [place] [id number] PCP - General 06/11/20 documented as of this encounter
== END 2025-03-14 11:56 | disposition home or self-care (01) ==
LOC: HO.HKAS 11:16
PROVIDERS: PCP Internal Medicine; Visit Provider Internal Medicine Nephrology
DX: N18.31 Chronic kidney disease, stage 3a (principal); Z90.5 Acquired absence of kidney; I10 Essential (primary) hypertension
CPT/HCPCS: 99214

== ENCOUNTER → 2025-03-14 11:15 | Outpatient (BNVA) | payer MEDICARE, SELFPAY | PROVIDERS: PCP Internal Medicine; Visit Provider Internal Medicine Nephrology | DX: N18.31 Chronic kidney disease, stage 3a (principal); I10 Essential (primary) hypertension; Z90.5 Acquired absence of kidney | CPT/HCPCS: 99212 ==